=== PATIENT | female | born 1985 | race Caucasian/White ===

== ENCOUNTER 2016-10-26 14:42 | Emergency (ER) | payer OTHER ==
[2016-10-26 14:56] VITALS: BP 129/76; PULSE 73; RESP 18; TEMP 98.1
--- NOTE | 2016-10-26 15:40 | ED ---
Extremity Problem HPI - General Chief complaint: Extremity Problem,Nontraumatic Stated complaint: Poss blood clot Time Seen by Provider: 10/26/16 15:00 Source: patient Mode of arrival: ambulatory Limitations: no limitations - History of Present Illness Initial comments: This is a 31-year-old female who presents in [facility] for medics breast for right lower extremity swelling and bruising. She states that she noticed it yesterday around 6 PM. She states that she has a pain and tingling sensation to the right lower extremity below the calf. She denies any weakness in the extremity. No severe pain. There is just pain over the bruise on the medial aspect of the calf. She denies any shortness of breath or cough. No hemoptysis. She does take control and smokes however has not any recent travel or surgeries. No history DVT. She was sent here for evaluation for DVT. - Related Data Home Medications Medication Instructions Recorded Confirmed Levothyroxine Sodium [Synthroid] 25 mcg PO DAILY 01/23/14 01/23/14 Lurasidone [Latuda] 20 mg PO DAILY 01/23/14 01/23/14 clonazePAM [KlonoPIN] 2 mg PO BID 01/23/14 01/23/14 lamoTRIgine [LaMICtal] 150 mg PO BID 01/23/14 01/23/14 Previous Rx's Medication Instructions Recorded Loratadine [Claritin] 10 mg PO DAILY #30 tab 01/23/14 Allergies Allergy/AdvReac Type Severity Reaction Status Date / Time aspirin Allergy Unknown Verified 10/26/16 14:56 codeine Allergy Unknown Verified 10/26/16 14:56 lactase [From Dairy Aid] Allergy Unknown Verified 10/26/16 14:56 wheat Allergy Unknown Verified 10/26/16 14:56 Review of Systems ROS Statement: Those systems with pertinent positive or pertinent negative responses have been documented in the HPI. ROS Other: All systems not noted in ROS Statement are negative. Past Medical History Past Medical History: Thyroid Disorder Additional Past Medical History / Comment(s): personality disorder, ptsd History of Any Multi-Drug Resistant Organisms: None Reported Past Surgical History: Ear Surgery Additional Past Surgical History / Comment(s): left ear drum, bunionectomy bilateral feet Past Psychological History: Anxiety, Bipolar, Depression Smoking Status: Current every day smoker Past Alcohol Use History: None Reported Past Drug Use History: None Reported General Exam - General Exam Comments Initial Comments: Constitutional: Awake alert Appears comfortable Head: Normocephalic atraumatic Eyes: no conjunctival injection No scleral icterus EOMI Neck: No JVD Supple Heart: Regular rate rhythm normal S1-S2 no murmurs Lungs: Clear to auscultation bilaterally No wheezing No rales Abdomen: Soft nondistended nontender Extremities: Mild bruising and swelling to the medial aspect of the right calf DP pulses intact Radial pulses intact, neurovascularly intact distal. Neuro: A&Ox3 No focal neurologic deficits Psych: Appropriate mood and affect Limitations: no limitations Course Vital Signs 10/26/16 14:54 Temperature 98.1 F Pulse Rate 73 Respiratory 18 Rate Blood Pressure 129/76 O2 Sat by Pulse 98 Oximetry Medical Decision Making - Medical Decision Making This is a 31-year-old female presents emergency department for right lower ch migdalia bruising and swelling. Doppler did not reveal any evidence for DVT. At this time I feel the patient may have sustained some type of local trauma to the area that she was unaware of. She is keep an eye on this area. She has worsening or changing symptoms she can return emergency Department. Otherwise she needs to follow-up with primary doctor. All questions were answered. Disposition Clinical Impression: Contusion of leg Disposition: HOME SELF-CARE Condition: Stable Instructions: Contusion in Adults (ED) Referrals: Jeremias Doan DO [Primary Care Provider] - 1-2 days
--- NOTE | 2016-10-26 16:01 | US ---
EXAMINATION TYPE: US venous doppler duplex LE RT DATE OF EXAM: 10/26/2016 3:46 PM COMPARISON: NONE CLINICAL HISTORY: 31-year-old female Swelling. Right leg pain. No history of DVT and not on blood th inners. SIDE PERFORMED: Right TECHNIQUE: The lower extremity deep venous system is examined utilizing real time linear array sonog joel with graded compression, doppler sonography and color-flow sonography. FINDINGS: VESSELS IMAGED: External Iliac Vein (EIV) Common Femoral Vein Deep Femoral Vein Greater Saphenous Vein * Femoral Vein Popliteal Vein Small Saphenous Vein * Proximal Calf Veins (* superficial vessels) Right Leg: Appears negative for DVT IMPRESSION: No evidence for DVT within the right lower extremity imaged from the groin to the upper calf.
== END 2016-10-26 16:22 | disposition home or self-care (01) ==
LOC: EC 14:42
DX: M79.81 Nontraumatic hematoma of soft tissue (principal); E07.9 Disorder of thyroid, unspecified; F31.9 Bipolar disorder, unspecified; F41.9 Anxiety disorder, unspecified; F17.200 Nicotine dependence, unspecified, uncomplicated; Z79.899 Other long term (current) drug therapy; Z88.5 Allergy status to narcotic agent; Z88.6 Allergy status to analgesic agent; Z91.011 Allergy to milk products; Z91.018 Allergy to other foods
CPT/HCPCS: 99283

== ENCOUNTER 2017-10-11 23:29 | Emergency (ER) | payer OTHER ==
[2017-10-12 06:56] LABS: ALT 33 U/L (9-52); AST 26 U/L (14-36); Albumin 4.4 g/dL (3.5-5.0); Alkaline Phosphatase 69 U/L (38-126); Anion Gap 10 mmol/L; Blood Urea Nitrogen 17 mg/dL (7-17); Calcium 9.6 mg/dL (8.4-10.2); Carbon Dioxide 25 mmol/L (22-30); Chloride 103 mmol/L (98-107); Glucose 104 mg/dL (74-99); Potassium 4.2 mmol/L (3.5-5.1); Sodium 138 mmol/L (137-145); Total Bilirubin 0.2 mg/dL (0.2-1.3); Total Protein 7.2 g/dL (6.3-8.2)
== END 2017-10-12 03:09 | disposition home or self-care (01) ==
LOC: EC 23:29
DX: I10 Essential (primary) hypertension (principal); E03.9 Hypothyroidism, unspecified; F41.9 Anxiety disorder, unspecified; F60.3 Borderline personality disorder; F17.200 Nicotine dependence, unspecified, uncomplicated; Z79.899 Other long term (current) drug therapy; Z88.5 Allergy status to narcotic agent; Z88.6 Allergy status to analgesic agent; Z91.011 Allergy to milk products; Z91.018 Allergy to other foods
CPT/HCPCS: 36415; 80053; 81025; 99283

== ENCOUNTER → 2018-01-24 | Outpatient (CLI) | payer OTHER ==
--- NOTE | 2018-01-24 07:30 | US ---
EXAMINATION TYPE: US gallbladder DATE OF EXAM: 01/24/2018 COMPARISON: NONE CLINICAL HISTORY: R10.13 Epigastric pain. Nausea EXAM MEASUREMENTS: Liver Length: 18.6 cm Gallbladder Wall: 0.2 cm CBD: 0.2 cm Right Kidney: 12.1 x 5.4 x 4.2 cm Pancreas: wnl Liver: Increased attenuation Gallbladder: with multiple mobile, shadowing echogenic foci. Evidence for sonographic German's sign: Yes CBD: wnl Right Kidney: wnl IMPRESSION: 1. Uncomplicated cholelithiasis. 2. Hepatic steatosis.
== END | disposition home or self-care (01) ==
LOC: RADUSWWP 06:47
PROVIDERS: ATTEND Family Medicine
DX: K76.0 Fatty (change of) liver, not elsewhere classified (principal); K80.20 Calculus of gallbladder without cholecystitis without obstruction; R10.13 Epigastric pain
CPT/HCPCS: 76705

== ENCOUNTER 2018-01-27 03:20 | Observation (INO) | payer OTHER ==
[2018-01-27] MEDS ORDERED: ONDANSETRON 4 MG/2 ML VIAL IVP STA (03:34)
[2018-01-27] MEDS ORDERED: KETOROLAC 30 MG/ML 1 ML VIAL IVP STA (03:34)
--- NOTE | 2018-01-27 03:38 | ED ---
Abdominal Pain HPI - General Chief Complaint: Abdominal Pain Stated Complaint: upper abd pain Time Seen by Provider: 01/27/18 03:29 Source: patient Mode of arrival: ambulatory Limitations: no limitations - History of Present Illness Initial Comments: This patient is a 32-year-old woman who presents to be evaluated for right upper quadrant pain. The patient states that the pains began about 20 minutes before she arrived here tonight. She states that she had been at work. The patient has also had previous episodes of this. She states that she was told that she has gallstones and it may be the cause of this. The patient states the pain is sharp and aching. It has been constant though it does get better and worse. She states the pain gets worse if she presses on the area. It is little better if she curls over. He is been some associated nausea. MD Complaint: abdominal pain Onset/Timin -: minutes(s) Location: RUQ Radiation: R flank Severity: severe Quality: aching Consistency: colicky Improves With: nothing Worsens With: nothing Associated Symptoms: nausea - Related Data Home Medications Medication Instructions Recorded Confirmed Levothyroxine Sodium [Synthroid] 25 mcg PO DAILY 01/23/14 01/23/14 Lurasidone [Latuda] 20 mg PO DAILY 01/23/14 01/23/14 clonazePAM [KlonoPIN] 2 mg PO BID 01/23/14 01/23/14 lamoTRIgine [LaMICtal] 150 mg PO BID 01/23/14 01/23/14 Previous Rx's Medication Instructions Recorded Loratadine [Claritin] 10 mg PO DAILY #30 tab 01/23/14 Allergies Allergy/AdvReac Type Severity Reaction Status Date / Time aspirin Allergy Unknown Verified 01/27/18 03:27 codeine Allergy Unknown Verified 01/27/18 03:27 lactase [From Dairy Aid] Allergy Unknown Verified 01/27/18 03:27 wheat Allergy Unknown Verified 01/27/18 03:27 Review of Systems ROS Statement: Those systems with pertinent positive or pertinent negative responses have been documented in the HPI. ROS Other: All systems not noted in ROS Statement are negative. Constitutional: Denies: fever, chills Respiratory: Denies: cough, dyspnea Cardiovascular: Denies: chest pain, palpitations, edema Gastrointestinal: Reports: abdominal pain, nausea. Denies: vomiting, diarrhea, constipation, melena, hematochezia Genitourinary: Denies: dysuria, frequency, hematuria Musculoskeletal: Denies: back pain Skin: Denies: rash Neurological: Denies: headache, weakness, numbness Past Medical History Past Medical History: Hypertension, Thyroid Disorder Additional Past Medical History / Comment(s): personality disorder, ptsd, gallstones. History of Any Multi-Drug Resistant Organisms: None Reported Past Surgical History: Ear Surgery Additional Past Surgical History / Comment(s): left ear drum, bunionectomy bilateral feet Past Psychological History: Anxiety, Bipolar, Depression Smoking Status: Current every day smoker Past Alcohol Use History: None Reported Past Drug Use History: None Reported General Exam Limitations: no limitations General appearance: alert, in no apparent distress, obese Head exam: Present: atraumatic, normocephalic Eye exam: Present: normal appearance. Absent: scleral icterus, conjunctival injection ENT exam: Present: normal oropharynx Respiratory exam: Present: normal lung sounds bilaterally. Absent: respiratory distress, wheezes, rales, rhonchi, stridor Cardiovascular Exam: Present: regular rate, normal rhythm, normal heart sounds. Absent: systolic murmur, diastolic murmur, rubs, gallop GI/Abdominal exam: Present: soft, tenderness (There is moderate right upper quadrant tenderness.), normal bowel sounds. Absent: distended, guarding, rebound, rigid, mass Extremities exam: Present: normal inspection, normal capillary refill. Absent: pedal edema, calf tenderness Back exam: Present: normal inspection. Absent: CVA tenderness (R), CVA tenderness (L) Neurological exam: Present: alert Skin exam: Present: warm, dry, intact, normal color. Absent: rash Course Vital Signs 01/27/18 01/27/18 01/27/18 03:23 04:16 05:00 Temperature 98.2 F Pulse Rate 108 H Respiratory 20 18 19 Rate Blood Pressure 186/99 O2 Sat by Pulse 98 Oximetry 01/27/18 01/27/18 06:00 06:56 Temperature Pulse Rate 75 Respiratory 19 17 Rate Blood Pressure 132/66 O2 Sat by Pulse 100 Oximetry Medical Decision Making - Medical Decision Making Patient's 32-year-old woman with worsening episodes of biliary colic. She is tender on the exam today. The ultrasound as showing wall thickening suggestive of acute cholecystitis and the case discussed with Dr. marquez will admit the patient for possible surgery tomorrow. - Lab Data Result diagrams: 01/27/18 03:38 01/27/18 03:38 Lab Results 01/27/18 01/27/18 01/27/18 Range/Units 03:38 03:38 03:38 WBC 11.5 H (3.8-10.6) k/uL RBC 4.73 (3.80-5.40) m/uL Hgb 13.0 (11.4-16.0) gm/dL Hct 39.8 (34.0-46.0) % MCV 84.2 (80.0-100.0) fL MCH 27.6 (25.0-35.0) pg MCHC 32.7 (31.0-37.0) g/dL RDW 14.5 (11.5-15.5) % Plt Count 301 (150-450) k/uL Neutrophils % 57 % Lymphocytes % 33 % Monocytes % 3 % Eosinophils % 5 % Basophils % 0 % Neutrophils # 6.5 (1.3-7.7) k/uL Lymphocytes # 3.8 (1.0-4.8) k/uL Monocytes # 0.4 (0-1.0) k/uL Eosinophils # 0.5 (0-0.7) k/uL Basophils # 0.0 (0-0.2) k/uL Sodium 140 (137-145) mmol/L Potassium 4.1 (3.5-5.1) mmol/L Chloride 107 (98-107) mmol/L Carbon Dioxide 21 L (22-30) mmol/L Anion Gap 12 mmol/L BUN 21 H (7-17) mg/dL Creatinine 1.08 H (0.52-1.04) mg/dL Est GFR (CKD-EPI)AfAm 78 (>60 ml/min/1.73 sqM) Est GFR (CKD-EPI)NonAf 68 (>60 ml/min/1.73 sqM) Glucose 121 H (74-99) mg/dL Calcium 9.7 (8.4-10.2) mg/dL Total Bilirubin 0.4 (0.2-1.3) mg/dL AST 15 (14-36) U/L ALT 20 (9-52) U/L Alkaline Phosphatase 70 (38-126) U/L Total Protein 7.5 (6.3-8.2) g/dL Albumin 4.3 (3.5-5.0) g/dL Amylase 52 (30-110) U/L Lipase 83 (23-300) U/L Urine Color Urine Appearance (Clear) Urine pH (5.0-8.0) Ur Specific [place] (1.001-1.035) Urine Protein (Negative) Urine Glucose (UA) (Negative) Urine Ketones (Negative) Urine Blood (Negative) Urine Nitrite (Negative) Urine Bilirubin (Negative) Urine Urobilinogen (<2.0) mg/dL Ur Leukocyte Esterase (Negative) Urine RBC (0-5) /hpf Urine WBC (0-5) /hpf Ur Squamous Epith Cells (0-4) /hpf Urine Mucus (None) /hpf Urine HCG, Qual Not Detected (Not Detectd) 01/27/18 Range/Units 03:38 WBC (3.8-10.6) k/uL RBC (3.80-5.40) m/uL Hgb (11.4-16.0) gm/dL Hct (34.0-46.0) % MCV (80.0-100.0) fL MCH (25.0-35.0) pg MCHC (31.0-37.0) g/dL RDW (11.5-15.5) % Plt Count (150-450) k/uL Neutrophils % % Lymphocytes % % Monocytes % % Eosinophils % % Basophils % % Neutrophils # (1.3-7.7) k/uL Lymphocytes # (1.0-4.8) k/uL Monocytes # (0-1.0) k/uL Eosinophils # (0-0.7) k/uL Basophils # (0-0.2) k/uL Sodium (137-145) mmol/L Potassium (3.5-5.1) mmol/L Chloride (98-107) mmol/L Carbon Dioxide (22-30) mmol/L Anion Gap mmol/L BUN (7-17) mg/dL Creatinine (0.52-1.04) mg/dL Est GFR (CKD-EPI)AfAm (>60 ml/min/1.73 sqM) Est GFR (CKD-EPI)NonAf (>60 ml/min/1.73 sqM) Glucose (74-99) mg/dL Calcium (8.4-10.2) mg/dL Total Bilirubin (0.2-1.3) mg/dL AST (14-36) U/L ALT (9-52) U/L Alkaline Phosphatase (38-126) U/L Total Protein (6.3-8.2) g/dL Albumin (3.5-5.0) g/dL Amylase (30-110) U/L Lipase (23-300) U/L Urine Color Yellow Urine Appearance Cloudy H (Clear) Urine pH 5.5 (5.0-8.0) Ur Specific [place] 1.024 (1.001-1.035) Urine Protein Trace H (Negative) Urine Glucose (UA) Negative (Negative) Urine Ketones Negative (Negative) Urine Blood Trace H (Negative) Urine Nitrite Negative (Negative) Urine Bilirubin Negative (Negative) Urine Urobilinogen <2.0 (<2.0) mg/dL Ur Leukocyte Esterase Negative (Negative) Urine RBC 1 (0-5) /hpf Urine WBC 2 (0-5) /hpf Ur Squamous Epith Cells 2 (0-4) /hpf Urine Mucus Many H (None) /hpf Urine HCG, Qual (Not Detectd) Disposition Clinical Impression: Abdominal pain Disposition: ADMITTED IP TO THIS HOSP Condition: Fair Instructions: Abdominal Pain (ED) Is patient prescribed a controlled substance at d/c from ED?: No Referrals: Tim Katz Jr, [Primary Care Provider] - 1-2 days
[2018-01-27 04:00] LABS: Basophils % (A) 0 %; Eosinophils # (A) 0.5 k/uL (0-0.7); Eosinophils % (A) 5 %; HCT 39.8 % (34.0-46.0); Lymphocytes # (A) 3.8 k/uL (1.0-4.8); Lymphocytes % (A) 33 %; MCH 27.6 pg (25.0-35.0); MCHC 32.7 g/dL (31.0-37.0); MCV 84.2 fL (80.0-100.0); Mean Platelet Volume 6.8; Monocytes # (A) 0.4 k/uL (0-1.0); Monocytes % (A) 3 %; Neutrophils # (A) 6.5 k/uL (1.3-7.7); Neutrophils % (A) 57 %; Platelet Count 301 k/uL (150-450); RBC 4.73 m/uL (3.80-5.40); RDW 14.5 % (11.5-15.5); WBC 11.5 k/uL (3.8-10.6)
[2018-01-27 04:06] LABS: Appearance,Urine Cloudy (Clear); Bilirubin,Urine Negative (Negative); Blood,Urine Trace (Negative); Color,Urine Yellow; Glucose,Urine (UA) Negative (Negative); Ketones,Urine Negative (Negative); Leukocyte Esterase,Urine Negative (Negative); Mucus,Urine Many /hpf; Nitrite,Urine Negative (Negative); PH, Urine 5.5 (5.0-8.0); Protein,Urine Trace (Negative); RBC,Urine 1 /hpf (0-5); Specific Gravity,Urine 1.024 (1.001-1.035); Squamous Epithelial Cell,Urine 2 /hpf (0-4); Urobilinogen,Urine <2.0 mg/dL (<2.0); WBC,Urine 2 /hpf (0-5)
[2018-01-27 04:11] LABS: Albumin 4.3 g/dL (3.5-5.0); Calcium 9.7 mg/dL (8.4-10.2); Potassium 4.1 mmol/L (3.5-5.1); Total Bilirubin 0.4 mg/dL (0.2-1.3); Total Protein 7.5 g/dL (6.3-8.2)
[2018-01-27] MEDS ORDERED: MORPHINE SULFATE 2 MG/ML SYRINGE IVP STA (04:44)
[2018-01-27] MEDS ORDERED: HYDROmorphone 1 MG/ML 1 ML SYRINGE IVP STA (05:12)
--- NOTE | 2018-01-27 08:08 | US ---
EXAMINATION TYPE: US abdomen limited DATE OF EXAM: 01/27/2018 COMPARISON: Previous study dated 01/24/2018. CLINICAL HISTORY: Pain, attention RUQ. EXAM MEASUREMENTS: Liver Length: cm Gallbladder Wall: cm CBD: cm Right Kidney: cm Patient of large body habitus. Pancreas: wnl Liver: Increased attenuation, decreased visualization of vessels suggestive of fatty infiltrate, hep atomegaly Gallbladder: multiple mobile, shadowing echogenic foci Evidence for sonographic German's sign: yes CBD: wnl Right Kidney: wnl Limited views of the pancreas are unremarkable. The liver is prominent measuring 21 cm. It is echogenic and may be fatty infiltrated. There are multiple gallstones within the gallbladder. Gallbladder wall is mildly thickened measuring 3 mm. The distal common hepatic duct measures 4.3 mm. There is a sonographic German's sign. The right kidney is unremarkable. IMPRESSION: 1. HEPATOMEGALY. 2. CHOLELITHIASIS AND POSSIBLE ACUTE CHOLECYSTITIS.
[2018-01-27] MEDS ORDERED: NALOXONE 0.4 MG/ML 1 ML VIAL IV PRN (08:46)
[2018-01-27] MEDS ORDERED: PIPERACILLIN-TAZOBACTAM 3.375 GM in SODIUM CHLORIDE 0.9% 100 ML IVPB STA (08:50)
[2018-01-27] MEDS ORDERED: LURASIDONE 20 MG TAB PO SCH (09:00)
[2018-01-27] MEDS ORDERED: LEVOTHYROXINE 25 MCG TAB PO SCH (09:00)
[2018-01-27] MEDS: SODIUM CHLORIDE 0.9% 1,000 ML IV SCH ×3 (09:36→21:16)
[2018-01-27] MEDS: clonazePAM 1 MG TAB PO SCH ×2 (10:32→10:43)
[2018-01-27] MEDS: lamoTRIgine 100 MG TAB PO SCH ×2 (10:32→20:30)
[2018-01-27] MEDS: ONDANSETRON 4 MG/2 ML VIAL IVP PRN (10:33)
[2018-01-27] MEDS ORDERED: HYDROCHLOROTHIAZIDE 12.5 MG CAP PO SCH (10:45)
[2018-01-27] MEDS ORDERED: LISINOPRIL 5 MG TAB PO SCH (10:45)
[2018-01-27] MEDS ORDERED: LURASIDONE 20 MG TAB PO ONE (10:49)
[2018-01-27] MEDS: LEVOTHYROXINE 50 MCG TAB PO SCH (11:06)
[2018-01-27] MEDS: HYDROmorphone 1 MG/ML 1 ML SYRINGE IVP PRN ×2 (11:51→21:16)
--- NOTE | 2018-01-27 12:52 | P.GSHP ---
History of Present Illness H&P Date: 01/27/18 This is a 32-year-old female presented with acute onset of right upper quadrant pain. She was found to have gallbladder wall thickening and ultrasound findings consistent with acute cholecystitis. She states that she's been having these attacks on and off for the past month and several months. She was being worked up as an outpatient when she began having ongoing attacks or lasting greater than 8 hours 2 days ago. This is what brought her into the hospital. She states that currently she is feeling a little bit better however she does still have pain in her right upper quadrant. She denies any nausea vomiting she's passing normal bowel movements. She's never had abdominal surgery before in the past. Past Medical History Past Medical History: Hypertension, Thyroid Disorder Additional Past Medical History / Comment(s): personality disorder, ptsd, gallstones. History of Any Multi-Drug Resistant Organisms: None Reported Past Surgical History: Ear Surgery Additional Past Surgical History / Comment(s): left ear drum, bunionectomy bilateral feet Past Psychological History: Anxiety, Bipolar, Depression Smoking Status: Current every day smoker Past Alcohol Use History: None Reported Past Drug Use History: None Reported Medications and Allergies Home Medications Medication Instructions Recorded Confirmed Type Lurasidone [Latuda] 40 mg PO DAILY 01/23/14 01/27/18 History lamoTRIgine [LaMICtal] 150 mg PO BID 01/23/14 01/27/18 History Hydrochlorothiazide [Hydrodiuril] 12.5 mg PO DAILY 01/27/18 01/27/18 History Levothyroxine Sodium [Synthroid] 50 mcg PO DAILY 01/27/18 01/27/18 History Lisinopril [Zestril] 5 mg PO DAILY 01/27/18 01/27/18 History Topiramate [Topamax] 50 mg PO DAILY 01/27/18 01/27/18 History Allergies Allergy/AdvReac Type Severity Reaction Status Date / Time aspirin Allergy Unknown Verified 01/27/18 10: codeine Allergy Unknown Verified 01/27/18 10: lactase [From Dairy Aid] Allergy Unknown Verified 01/27/18 10: wheat Allergy Unknown Verified 01/27/18 10:18 Surgical - Exam Osteopathic Statement: *. No significant issues noted on an osteopathic structural exam other than those noted in the History and Physical/Consult. Vital Signs Temp Pulse Resp BP Pulse Ox 98.2 F 108 H 20 186/99 98 01/27/18 03:23 01/27/18 03:23 01/27/18 03:23 01/27/18 03:23 01/27/18 03:23 - General well developed, well nourished, no distress - Eyes PERRL - Neck trachea midline - Respiratory normal expansion, normal respiratory effort - Cardiovascular Rhythm: regular - Abdomen mild TTP RUQ Abdomen: soft - Neurologic normal coordination, normal sensation - Psychiatric oriented to time, oriented to person, oriented to place Results - Labs 01/27/18 03:38 01/27/18 03:38 Abnormal Lab Results - Last 24 Hours (Table) 01/27/18 01/27/18 01/27/18 Range/Units 03:38 03:38 03:38 WBC 11.5 H (3.8-10.6) k/uL Carbon Dioxide 21 L (22-30) mmol/L BUN 21 H (7-17) mg/dL Creatinine 1.08 H (0.52-1.04) mg/dL Glucose 121 H (74-99) mg/dL Urine Appearance Cloudy H (Clear) Urine Protein Trace H (Negative) Urine Blood Trace H (Negative) Urine Mucus Many H (None) /hpf Diabetes panel 01/27/18 Range/Units 03:38 Sodium 140 (137-145) mmol/L Potassium 4.1 (3.5-5.1) mmol/L Chloride 107 (98-107) mmol/L Carbon Dioxide 21 L (22-30) mmol/L BUN 21 H (7-17) mg/dL Creatinine 1.08 H (0.52-1.04) mg/dL Glucose 121 H (74-99) mg/dL Calcium 9.7 (8.4-10.2) mg/dL AST 15 (14-36) U/L ALT 20 (9-52) U/L Alkaline Phosphatase 70 (38-126) U/L Total Protein 7.5 (6.3-8.2) g/dL Albumin 4.3 (3.5-5.0) g/dL Calcium panel 01/27/18 Range/Units 03:38 Calcium 9.7 (8.4-10.2) mg/dL Albumin 4.3 (3.5-5.0) g/dL Pituitary panel 01/27/18 Range/Units 03:38 Sodium 140 (137-145) mmol/L Potassium 4.1 (3.5-5.1) mmol/L Chloride 107 (98-107) mmol/L Carbon Dioxide 21 L (22-30) mmol/L BUN 21 H (7-17) mg/dL Creatinine 1.08 H (0.52-1.04) mg/dL Glucose 121 H (74-99) mg/dL Calcium 9.7 (8.4-10.2) mg/dL Adrenal panel 01/27/18 Range/Units 03:38 Sodium 140 (137-145) mmol/L Potassium 4.1 (3.5-5.1) mmol/L Chloride 107 (98-107) mmol/L Carbon Dioxide 21 L (22-30) mmol/L BUN 21 H (7-17) mg/dL Creatinine 1.08 H (0.52-1.04) mg/dL Glucose 121 H (74-99) mg/dL Calcium 9.7 (8.4-10.2) mg/dL Total Bilirubin 0.4 (0.2-1.3) mg/dL AST 15 (14-36) U/L ALT 20 (9-52) U/L Alkaline Phosphatase 70 (38-126) U/L Total Protein 7.5 (6.3-8.2) g/dL Albumin 4.3 (3.5-5.0) g/dL Assessment and Plan Assessment: Acute cholecystitis Plan: Plan is for laparoscopic cholecystectomy tomorrow a.m. Patient will be made nothing by mouth after midnight. She had clear liquids until then. She'll be given IV antibiotics. This plan was discussed with the patient in detail risks benefits and alternatives to laparoscopic cholecystectomy were discussed risks including bleeding infection damage to surrounding tissue need for further operation damage to common bile duct and need for conversion to open were all discussed patient stated she understood agreed and consented
[2018-01-27] MEDS: TOPIRAMATE 25 MG TAB PO SCH (13:19)
[2018-01-27] MEDS: HEPARIN SODIUM,PORCINE 5,000 UNIT/ML 1 ML VIAL SQ SCH (16:54)
[2018-01-27] MEDS: PIPERACILLIN-TAZOBACTAM 3.375 GM in SODIUM CHLORIDE 0.9% 100 ML IVPB SCH (16:58)
[2018-01-27 18:26] VITALS: BMI 41.0
[2018-01-27] MEDS ORDERED: clonazePAM 1 MG TAB PO PRN (18:59)
[2018-01-28] MEDS: HEPARIN SODIUM,PORCINE 5,000 UNIT/ML 1 ML VIAL SQ SCH ×4 (01:03→20:16)
[2018-01-28] MEDS: PIPERACILLIN-TAZOBACTAM 3.375 GM in SODIUM CHLORIDE 0.9% 100 ML IVPB SCH ×4 (01:03→23:32)
[2018-01-28] MEDS: LEVOTHYROXINE 50 MCG TAB PO SCH (06:12)
[2018-01-28 07:17] LABS: Basophils % (A) 1 %; Eosinophils # (A) 0.4 k/uL (0-0.7); Eosinophils % (A) 5 %; HCT 35.5 % (34.0-46.0); HGB 11.2 gm/dL (11.4-16.0); Hypochromasia Slight; Lymphocytes # (A) 2.4 k/uL (1.0-4.8); Lymphocytes % (A) 35 %; MCH 26.8 pg (25.0-35.0); MCHC 31.4 g/dL (31.0-37.0); MCV 85.2 fL (80.0-100.0); Mean Platelet Volume 6.7; Monocytes # (A) 0.3 k/uL (0-1.0); Monocytes % (A) 5 %; Neutrophils # (A) 3.7 k/uL (1.3-7.7); Neutrophils % (A) 53 %; Platelet Count 254 k/uL (150-450); RBC 4.16 m/uL (3.80-5.40); RDW 14.3 % (11.5-15.5); WBC 6.9 k/uL (3.8-10.6)
[2018-01-28 07:25] LABS: Albumin 3.5 g/dL (3.5-5.0); Calcium 8.9 mg/dL (8.4-10.2); Potassium 4.3 mmol/L (3.5-5.1); Total Bilirubin 0.5 mg/dL (0.2-1.3); Total Protein 6.3 g/dL (6.3-8.2)
[2018-01-28] MEDS ORDERED: ONDANSETRON 4 MG/2 ML VIAL ONE (08:16)
[2018-01-28] MEDS ORDERED: SODIUM CHLORIDE 0.9% 1,000 ML IV ONE ×2 (08:16→10:10)
[2018-01-28] MEDS ORDERED: GLYCOPYRROLATE 0.2 MG/ML 2 ML VIAL ONE (08:16)
[2018-01-28] MEDS ORDERED: SUCCINYLCHOLINE CHLORIDE 100 MG/5 ML SYR IV ONE (08:16)
[2018-01-28] MEDS ORDERED: BUPIVACAIN-EPI 0.25%-1:200,000 30 ML VIAL SQ ONE (08:16)
[2018-01-28] MEDS ORDERED: NEOSTIGMINE 1 MG/ML 10 ML VIAL ONE (08:16)
[2018-01-28] MEDS ORDERED: PROPOFOL 10 MG/ML 20 ML VIAL IV ONE (08:16)
[2018-01-28] MEDS ORDERED: KETOROLAC 30 MG/ML 1 ML VIAL ONE (08:16)
[2018-01-28] MEDS ORDERED: fentaNYL (PF) 50 MCG/ML 2 ML AMP ONE (08:16)
[2018-01-28] MEDS ORDERED: HYDROmorphone (PF) 1 MG/ML ONE (08:16)
[2018-01-28] MEDS ORDERED: LIDOCAINE 1% INJ 10MG/ML (20 ML MDV) ONE (08:16)
[2018-01-28] MEDS ORDERED: MIDAZOLAM 2 MG/2 ML VIAL ONE (08:16)
[2018-01-28] MEDS ORDERED: ROCURONIUM BROMIDE 10 MG/ML 10 ML VIAL IV ONE (08:16)
[2018-01-28] MEDS ORDERED: DEXAMETHASONE SOD PHOS (MDV) 100 MG/10 ML VIAL ONE (08:16)
[2018-01-28] MEDS: MEPERIDINE 50 MG/ML SYRINGE IVP ONE ×2 (09:35→09:46)
--- NOTE | 2018-01-28 09:38 | P.OP ---
Date of Procedure: 01/28/18 Preoperative Diagnosis: Acute cholecystitis Postoperative Diagnosis: same Procedure(s) Performed: Laparoscopic cholecystectomy Anesthesia: JENAE Surgeon: Denzel Brock Estimated Blood Loss (ml): 5 Condition: stable Disposition: floor Description of Procedure: Patient is brought operative suite remained in the supine position underwent general endotracheal anesthesia per Department of anesthesia she was prepped and draped in usual sterile fashion timeout performed correct patient correct procedure correct site was verified. A 12 mm incision was made just to the right of the umbilicus and using a 12 mm Visiport the abdomen was entered under direct visualization and insufflated. 3 5 mm ports are placed in the right upper quadrant and the patient was placed head up rotated right. The gallbladder was identified the fundus was retracted cephalad adhesions were taken down bluntly the Allen's pouch was identified and retracted the cystic duct and cystic artery were skeletonized critical view was obtained they were then doubly clipped and ligated the gallbladder was removed from the liver bed using Bovie cautery. The gallbladder was placed in Endo Catch bag and removed through the periumbilical port site. The abdomen was irrigated copiously until clear and suctioned. The umbilical incision was closed with an 0 Vicryl with 8 of a Edson-Antonette suture passer. The abdomen was desufflated all ports removed under direct visualization hemostasis was noted. Skin was closed with 4 -0 Vicryl subcuticular sutures sterile dressing was applied patient tolerated procedure well no apparent complications
[2018-01-28] MEDS: HYDROmorphone 1 MG/ML 1 ML SYRINGE IVP PRN ×4 (11:24→23:31)
[2018-01-28] MEDS: ONDANSETRON 4 MG/2 ML VIAL IVP PRN (11:24)
[2018-01-28] MEDS: TOPIRAMATE 25 MG TAB PO SCH (11:26)
[2018-01-28] MEDS: lamoTRIgine 100 MG TAB PO SCH ×2 (11:26→20:17)
[2018-01-28] MEDS: SODIUM CHLORIDE 0.9% 1,000 ML IV SCH (11:27)
--- NOTE | 2018-01-28 12:24 | P.HPIM ---
History of Present Illness H&P Date: 01/28/18 Chief Complaint: Abdominal pain and cholecystitis This 32-year-old woman well-known to my practice who presented to the emergency room for evaluation for right upper quadrant pain with nausea and vomiting. Patient states pain became approximately 20 minutes before she arrived. However she had been having pain off and on for several weeks and we have been working up for gallbladder disease she had a positive ultrasound with gallstones she had appointment scheduled with Dr. marquez for An office consultation so that she could undergo and a elective cholecystectomy. Patient developed sharp achy abdominal pain, that had become progressively worse while at work. She presented to the hospital Review of Systems Constitutional: Reports malaise, Reports poor appetite Ears, nose, mouth and throat: Reports as per HPI Cardiovascular: Reports as per HPI Respiratory: Reports as per HPI Gastrointestinal: Reports abdominal pain, Reports belching, Reports bloating, Reports excessive gas, Reports heartburn, Reports nausea (Right upper quadrant tenderness that radiates to back especially during and after meals) Genitourinary: Reports as per HPI Past Medical History Past Medical History: Hypertension, Thyroid Disorder Additional Past Medical History / Comment(s): personality disorder, ptsd, gallstones. History of Any Multi-Drug Resistant Organisms: None Reported Past Surgical History: Ear Surgery Additional Past Surgical History / Comment(s): left ear drum, bunionectomy bilateral feet Past Psychological History: Anxiety, Bipolar, Depression Smoking Status: Current every day smoker Past Alcohol Use History: None Reported Past Drug Use History: None Reported Medications and Allergies Home Medications Medication Instructions Recorded Confirmed Type Lurasidone [Latuda] 40 mg PO DAILY 01/23/14 01/27/18 History lamoTRIgine [LaMICtal] 150 mg PO BID 01/23/14 01/27/18 History Hydrochlorothiazide [Hydrodiuril] 12.5 mg PO DAILY 01/27/18 01/27/18 History Levothyroxine Sodium [Synthroid] 50 mcg PO DAILY 01/27/18 01/27/18 History Lisinopril [Zestril] 5 mg PO DAILY 01/27/18 01/27/18 History Topiramate [Topamax] 50 mg PO DAILY 01/27/18 01/27/18 History Allergies Allergy/AdvReac Type Severity Reaction Status Date / Time aspirin Allergy Unknown Verified 01/27/18 10:18 codeine Allergy Unknown Verified 01/27/18 10:18 lactase [From Dairy Aid] Allergy Unknown Verified 01/27/18 10:18 wheat Allergy Unknown Verified 01/27/18 10:18 Physical Exam Osteopathic Statement: *. No significant issues noted on an osteopathic structural exam other than those noted in the History and Physical/Consult. Vitals: Vital Signs Temp Pulse Pulse Resp BP Pulse Ox 01/28/18 10:11 84 18 132/58 97 01/28/18 10:00 71 16 134/55 95 01/28/18 09:45 68 16 137/65 99 01/28/18 09:28 97.4 F L 77 16 154/75 98 01/28/18 07:00 99.0 F 73 16 118/77 99 01/28/18 00:50 97.4 F L 71 14 95/57 98 01/27/18 19:10 97.4 F L 70 14 96/57 97 01/27/18 15:00 98.3 F 74 90/55 99 Intake and Output 01/27/18 01/28/18 01/28/18 22:59 06:59 14:59 Intake Total 375 975 500 Output Total 5 Balance 375 975 495 Intake: IV 500 Intake, IV Titration 375 975 Amount Piperacillin-Tazobactam 3 100 .375 gm In Sodium Chloride 0.9% 100 ml @ 25 mls/hr IVPB Q8HR [facility] Rx# :[id number] Sodium Chloride 0.9% 1, 375 875 000 ml @ 125 mls/hr IV . Q8H [facility] Rx#:[id number] Output: Estimated Blood Loss 5 Other: Voiding Method Toilet # Voids 1 1 General: [Patient awake, alert and oriented times 3. Patient in no acute distress.] HEENT: [PERRL. EOMI. No pharyngeal erythema or exudate.] Neck: [No adenopathy.] Cardiac: [Heart regular in rate and rhythm. No S3. No S4. No clicks, rubs. No murmur.] Lungs: [Clear to auscultation bilaterally.] Abdomen: Significant abdominal pain with intermittent nausea radiating to the right upper quadrant to the back, some rebound type tenderness when palpating the right upper quadrant Extremes: [No edema no cyanosis no claudication normal pulses] : [] Musculoskeletal: [No joint erythema, edema or tenderness.] Skin: [No rash.] Neurologic: [No lateralizing deficits. CN II - XII grossly intact.] Lymphatic: [No adenopathy.] Results CBC & Chem 7: 01/28/18 06:24 01/28/18 06:24 Labs: Abnormal Lab Results - Last 24 Hours (Table) 01/28/18 01/28/18 Range/Units 06:24 06:24 Hgb 11.2 L (11.4-16.0) gm/dL Chloride 108 H (98-107) mmol/L Creatinine 1.05 H (0.52-1.04) mg/dL Thrombosis Risk Factor Assmnt - Choose All That Apply Each Factor Represents 1 point: Minor surgery planned, Obesity (BMI >25) Other Risk Factors: Yes Other congenital or acquired thrombophilia - If yes, enter type in comment: No Thrombosis Risk Factor Assessment Total Risk Factor Score: 2 Thrombosis Risk Factor Assessment Level: Low Risk Assessment and Plan (1) Acute cholecystitis due to biliary calculus Narrative/Plan: Status post lap cholecystectomy per Dr. Denzel Shelley surgery Operative day today Current Visit: Yes Status: Acute Code(s): K80.00 - CALCULUS OF GALLBLADDER W ACUTE CHOLECYST W/O OBSTRUCTION SNOMED Code(s): 00873270045445 Plan: Discussed at length the postop pattern of recovery with patient she was made aware that this may get a little bit worse before it gets better but it should get better. She seems to be feeling much more comfortable than she had prior to the procedure Anticipate discharge home tomorrow Time with Patient: Greater than 30
[2018-01-28] MEDS: LACTATED RINGERS 1,000 ML IV SCH (12:47)
[2018-01-28] MEDS: LISINOPRIL 5 MG TAB PO SCH (15:03)
[2018-01-28] MEDS ORDERED: LURASIDONE 40 MG TAB PO SCH (21:00)
[2018-01-28] MEDS ORDERED: HYDROCHLOROTHIAZIDE 12.5 MG CAP PO SCH (21:00)
[2018-01-29] MEDS: HYDROmorphone 1 MG/ML 1 ML SYRINGE IVP PRN ×3 (02:46→09:18)
[2018-01-29] MEDS: LEVOTHYROXINE 50 MCG TAB PO SCH (06:09)
[2018-01-29 07:14] VITALS: RESP 16
[2018-01-29] MEDS: PIPERACILLIN-TAZOBACTAM 3.375 GM in SODIUM CHLORIDE 0.9% 100 ML IVPB SCH (07:31)
[2018-01-29] MEDS: HEPARIN SODIUM,PORCINE 5,000 UNIT/ML 1 ML VIAL SQ SCH (09:25)
[2018-01-29] MEDS: LACTATED RINGERS 1,000 ML IV SCH (09:25)
[2018-01-29] MEDS: lamoTRIgine 100 MG TAB PO SCH (09:26)
[2018-01-29] MEDS: TOPIRAMATE 25 MG TAB PO SCH (09:27)
[2018-01-29] MEDS ORDERED: POLYETHYLENE GLYCOL 3350 17 GM POWD.PACK PO SCH (11:45)
[2018-01-29] MEDS ORDERED: DOCUSATE 100 MG CAP PO SCH (11:45)
[2018-01-29] MEDS ORDERED: HYDROmorphone 1 MG/ML 1 ML SYRINGE IVP PRN (11:54)
--- NOTE | 2018-01-29 12:43 | P.PN ---
Subjective Progress Note Date: 01/29/18 Patient examined at the bedside. Patient reports she is having a lot of pain today. She is still requiring IV pain medications. She reports she is constipated and has not had a bowel movement since Monday. She denies passing flatus. She has good bowel sounds. She is tolerating PO intake. Denies nausea or vomiting. Denies chest pain. Denies shortness of breath. She has been ambulating to the bathroom and in the hallway. Objective - Vital Signs Vital signs: Vital Signs Temp 98.9 F 01/29/18 07:11 Pulse 71 01/29/18 07:11 Resp 16 01/29/18 07:11 BP 130/81 01/29/18 07:11 Pulse Ox 97 01/29/18 07:11 Intake & Output 01/28/18 01/29/18 01/29/18 18:59 06:59 18:59 Intake Total 800 750 Output Total 5 Balance 795 750 Intake: IV 500 Intake, IV Titration 300 500 Amount Lactated Ringers 1,000 ml 200 500 @ 50 mls/hr IV .Q20H [facility] Rx#:[id number] Piperacillin-Tazobactam 3 100 .375 gm In Sodium Chloride 0.9% 100 ml @ 25 mls/hr IVPB Q8HR [facility] Rx# :[id number] Oral 250 Output: Estimated Blood Loss 5 Other: Voiding Method Toilet Toilet Toilet # Voids 1 - Exam GENERAL: This is a 32-year-old female in no apparent distress at the time of examination. Pleasant and cooperative. HEENT: Head is atraumatic, normocephalic. Pupils are equal, round, and reactive to light. Sclerae anicteric. Conjunctivae are clear. Mucus membranes of the mouth are moist. Neck is supple. RESPIRATORY: Clear to auscultation. No wheezes, rales, or rhonchi. No use of accessory muscles. Patient maintaining oxygen saturation greater than 92%. No chest wall tenderness is noted on palpation or with deep breathing. CARDIOVASCULAR: Regular rate and rhythm. S1 and S2 noted. No systolic or diastolic murmur auscultated. No JVD noted. No S3 or S4 noted. GASTROINTESTINAL: Laparoscopic surgical sites without erythema or drainage. Bowel sounds x 4 quadrants. INTEGUMENTARY: No cyanosis. No jaundice. No rashes noted. No cellulitis noted. EXTREMITIES: 2+ peripheral pulses. No evidence of peripheral edema. No calf tenderness noted. NEUROLOGIC: Cranial nerves II-XII intact. PSYCHIATRIC: Awake, alert, and oriented X 3. Appropriate affect. Intact judgement and insight. - Labs CBC & Chem 7: 01/28/18 06:24 01/28/18 06:24 Assessment and Plan Plan: ASSESSMENT: Acute cholecystitis, status post laparoscopic cholecystectomy Hypertension Hypothyroidism History of anxiety, bipolar disorder, depression, and PTSD Morbid obesity: BMI 41.1 PLAN: Continue post operative surgical care per Dr. Brock Activity as tolerated. Increase ambulation Add Colace an Miralax due to constipation Incentive spirometer 10 times an hour while awake Add [place]. Use dilaudid for severe pain only Home meds as appropriate GI/DVT prophylaxis Monitor vital signs and address as appropriate Further recommendations pending patient's course Nurse practitioner note has been reviewed by physician. Signing provider agrees with the documented findings, assessment, and plan of care.
[2018-01-29] MEDS: HYDROcodone/APAP 5-325MG 1 EACH TAB PO PRN ×2 (13:23→13:30)
--- NOTE | 2018-01-29 15:02 | P.DS ---
Providers Date of admission: 01/27/18 08:47 Attending physician: Denzel Brock DO Consults: 01/27/18 12:00 Consult Physician Routine Consulting Provider: Tim Katz Jr Consult Reason/Comments: Patient with Cholecystitis, known to you Do you want consulting provider notified?: Yes Primary care physician: [facility] Course: Patient was admitted to the hospital on 01/27/2018 with acute cholecystitis. On 01/28/2018 she was taken the operating room for a left scalp cholecystectomy. Procedure was without complication. Patient began feeling better. She had no complaints. She's tolerating her diet on 01/29/2018 she's discharged home in stable condition. Instructions to follow-up with myself in one week and primary care within 2 weeks. She is instructed to return to the hospital if she has increasing pain fevers chills or nausea and vomiting. Patient Condition at Discharge: Stable Plan - Discharge Summary Discharge Rx Participant: No New Discharge Prescriptions: New Docusate [Colace] 100 mg PO DAILY #20 capsule traMADol-ACETAMINOP 37.5-325MG [Ultracet] 1 tab PO Q4HR PRN 3 Days #18 tab MDD MAX 8 TABS/DAY PRN Reason: Pain Continue lamoTRIgine [LaMICtal] 150 mg PO BID Lurasidone [Latuda] 40 mg PO DAILY Topiramate [Topamax] 50 mg PO DAILY Lisinopril [Zestril] 5 mg PO DAILY Hydrochlorothiazide [Hydrodiuril] 12.5 mg PO DAILY Levothyroxine Sodium [Synthroid] 50 mcg PO DAILY Discharge Medication List Lurasidone [Latuda] 40 mg PO DAILY 01/23/14 [History] lamoTRIgine [LaMICtal] 150 mg PO BID 01/23/14 [History] Hydrochlorothiazide [Hydrodiuril] 12.5 mg PO DAILY 01/27/18 [History] Levothyroxine Sodium [Synthroid] 50 mcg PO DAILY 01/27/18 [History] Lisinopril [Zestril] 5 mg PO DAILY 01/27/18 [History] Topiramate [Topamax] 50 mg PO DAILY 01/27/18 [History] Docusate [Colace] 100 mg PO DAILY #20 capsule 01/29/18 [Rx] traMADol-ACETAMINOP 37.5-325MG [Ultracet] 1 tab PO Q4HR PRN 3 Days #18 tab MDD MAX 8 TABS/DAY 01/29/18 [Rx] Follow up Appointment(s)/Referral(s): Tim Katz Jr, DO [Primary Care Provider] - 2 Weeks Denzel Brock DO [Doctor of Osteopathic Medicine] - 1 Week Patient Instructions/Handouts: Abdominal Pain (ED) Discharge Disposition: HOME SELF-CARE
[2018-01-29 16:08] VITALS: BP 126/81; PULSE 68; TEMP 98.6
[2018-01-29] MEDS: LISINOPRIL 5 MG TAB PO SCH (16:31)
== END 2018-01-29 17:14 | disposition home or self-care (01) ==
LOC: EC 03:20 → INTOOBSV 08:47 → 4SSUR 08:47 → UNDODISIN 01-29 17:14
PROVIDERS: ADMIT Student in an Organized Health Care Education/Training Program; ATTEND Student in an Organized Health Care Education/Training Program
PROC: 0FT44ZZ Resection of Gallbladder, Percutaneous Endoscopic Approach (ICD-10-PCS; principal; 2018-01-28 07:49)
DX: K80.12 Calculus of gallbladder with acute and chronic cholecystitis without obstruction (principal); Z68.41 Body mass index [BMI] 40.0-44.9, adult; E03.9 Hypothyroidism, unspecified; I10 Essential (primary) hypertension; K59.00 Constipation, unspecified; F60.9 Personality disorder, unspecified; F43.10 Post-traumatic stress disorder, unspecified; F31.9 Bipolar disorder, unspecified; E66.01 Morbid (severe) obesity due to excess calories; F17.200 Nicotine dependence, unspecified, uncomplicated; Z79.890 Hormone replacement therapy; Z79.899 Other long term (current) drug therapy; Z88.6 Allergy status to analgesic agent; Z91.011 Allergy to milk products; Z88.5 Allergy status to narcotic agent; Z91.018 Allergy to other foods; F41.9 Anxiety disorder, unspecified
CPT/HCPCS: 47562; 96365; 96375; 99285; 36415; 88304; 80053 ×2; 82150; 83690; 85025 ×2; 81001; 81025; 76705; G0378 ×3; J2543 ×3; J2250; J1644 ×3; J2710; J2175; J2405 ×2; J2001; J3010; J1885 ×2; J2270; J1170 ×3; J1100; J0330; J2704

== ENCOUNTER 2019-03-23 20:46 | Emergency (ER) | payer OTHER ==
[2019-03-23 21:00] VITALS: RESP 18
[2019-03-23] MEDS ORDERED: SODIUM CHLORIDE 0.9% 1,000 ML IV STA (21:25)
[2019-03-23] MEDS ORDERED: METOCLOPRAMIDE 5 MG/ML 2 ML VIAL IVP STA (21:25)
[2019-03-23] MEDS ORDERED: diphenhydrAMINE 50 MG/ML 1 ML VIAL IVP STA (21:25)
--- NOTE | 2019-03-23 21:49 | CT ---
EXAMINATION TYPE: CT brain wo con DATE OF EXAM: 03/23/2019 COMPARISON: 05/11/2011 HISTORY: headache and dizziness X [address] DLP: 1068.4 mGycm Automated exposure control for dose reduction was used. Ventricles have normal size. There is no mass effect nor midline shift. There is no sign of intracran ial hemorrhage. There is no evidence of cerebral edema. The calvarium is intact. There is hyperostosi s frontalis. IMPRESSION: Negative CT scan of the brain. No change.
[2019-03-23] MEDS ORDERED: KETOROLAC 30 MG/ML 1 ML VIAL IVP STA (21:51)
--- NOTE | 2019-03-23 22:54 | ED ---
General Adult HPI - General Chief complaint: Headache Stated complaint: Migraine Time Seen by Provider: 03/23/19 21:10 Source: patient, RN notes reviewed Mode of arrival: ambulatory Limitations: no limitations - History of Present Illness Initial comments: 34-year-old female with a past medical history of hypertension presents to the emergency department for a chief complaint of headache. Patient has a history of migraines. States she takes Topamax for this. States she always has a migraine that never completely goes away but sometimes it worsens. Patient states that yesterday she had gradual worsening of the pain on the left side of the head. States she has nausea vomiting associated with this. States it is consistent with previous migraines but is lasting longer than normal. Denies any neck pain or stiffness. Denies any fevers or chills.Patient has no other complaints at this time including shortness of breath, chest pain, abdominal pain, nausea or vomiting,, or visual changes. - Related Data Home Medications Medication Instructions Recorded Confirmed Lurasidone [Latuda] 40 mg PO DAILY 01/23/14 01/27/18 lamoTRIgine [LaMICtal] 150 mg PO BID 01/23/14 01/27/18 Hydrochlorothiazide [Hydrodiuril] 12.5 mg PO DAILY 01/27/18 01/27/18 Levothyroxine Sodium [Synthroid] 50 mcg PO DAILY 01/27/18 01/27/18 Lisinopril [Zestril] 5 mg PO DAILY 01/27/18 01/27/18 Topiramate [Topamax] 50 mg PO DAILY 01/27/18 01/27/18 Previous Rx's Medication Instructions Recorded Docusate [Colace] 100 mg PO DAILY #20 capsule 01/29/18 HYDROcodone/APAP 5-325MG [[place] 1 tab PO Q6HR PRN 3 Days #10 tab 01/29/18 5-325] Allergies Allergy/AdvReac Type Severity Reaction Status Date / Time aspirin Allergy Unknown Verified 03/23/19 21:00 codeine Allergy Unknown Verified 03/23/19 21:00 Review of Systems ROS Statement: Those systems with pertinent positive or pertinent negative responses have been documented in the HPI. ROS Other: All systems not noted in ROS Statement are negative. Past Medical History Past Medical History: Hypertension, Thyroid Disorder Additional Past Medical History / Comment(s): personality disorder, ptsd, gallstones. History of Any Multi-Drug Resistant Organisms: None Reported Past Surgical History: Cholecystectomy, Ear Surgery Additional Past Surgical History / Comment(s): left ear drum, bunionectomy bilateral feet Past Psychological History: Anxiety, Bipolar, Depression Smoking Status: Current every day smoker Past Alcohol Use History: Rare Past Drug Use History: None Reported - Past Family History Mother Family Medical History: Cancer Additional Family Medical History / Comment(s): leukemia General Exam Limitations: no limitations General appearance: alert, in no apparent distress Head exam: Present: atraumatic, normocephalic, normal inspection Eye exam: Present: normal appearance, PERRL, EOMI. Absent: scleral icterus, conjunctival injection, periorbital swelling ENT exam: Present: normal exam, mucous membranes moist Neck exam: Present: normal inspection. Absent: tenderness, meningismus, lymphadenopathy Respiratory exam: Present: normal lung sounds bilaterally. Absent: respiratory distress, wheezes, rales, rhonchi, stridor Cardiovascular Exam: Present: regular rate, normal rhythm, normal heart sounds. Absent: systolic murmur, diastolic murmur, rubs, gallop, clicks Neurological exam: Present: alert, oriented X3, CN II-XII intact, normal gait Course Vital Signs 03/23/19 03/23/19 20:57 23:02 Temperature 98.6 F 98 F Pulse Rate 85 87 Respiratory 18 18 Rate Blood Pressure 175/101 133/66 O2 Sat by Pulse 99 100 Oximetry Medical Decision Making - Medical Decision Making Well appearing Female presents for migraine headache consistent with previous migraines however lasting longer than normal. No focal neurologic deficits on exam. Patient did have a brain CT performed which showed a negative scan. She was given migraine cocktail and had significant improvement in pain. This is likely acute migraine. No maximal intensity at onset. She will follow up with primary care. She'll return here if she has any worsening symptoms. Disposition Clinical Impression: Migraine Disposition: HOME SELF-CARE Condition: Good Instructions (If sedation given, give patient instructions): Acute Headache (ED) Additional Instructions: Please take Motrin and Tylenol for pain. Please follow-up with your primary care doctor in one to 2 days. Return to the emergency department if you have any worsening symptoms. Is patient prescribed a controlled substance at d/c from ED?: No Referrals: Tim Katz Jr, DO [Primary Care Provider] - 1-2 days Time of Disposition: 22:53
[2019-03-23 23:02] VITALS: BP 133/66; PULSE 87; TEMP 98
== END 2019-03-23 23:02 | disposition home or self-care (01) ==
LOC: EC 20:46
DX: G43.909 Migraine, unspecified, not intractable, without status migrainosus (principal); E07.9 Disorder of thyroid, unspecified; I10 Essential (primary) hypertension; F31.9 Bipolar disorder, unspecified; F41.9 Anxiety disorder, unspecified; F17.200 Nicotine dependence, unspecified, uncomplicated; Z88.5 Allergy status to narcotic agent; Z88.6 Allergy status to analgesic agent
CPT/HCPCS: 70450; 99283; J1200; J2765; J1885

== ENCOUNTER 2019-12-29 19:38 | Emergency (ER) | payer OTHER ==
--- NOTE | 2019-12-29 19:56 | ED ---
General Adult HPI - General Chief complaint: Abdominal Pain Stated complaint: Abd/Lumbar Pain Time Seen by Provider: 12/29/19 19:46 Source: patient Mode of arrival: ambulatory Limitations: no limitations - History of Present Illness Initial comments: Patient presents the ED complaining of having diffuse lower abdominal pain and diffuse lumbar back pain for the past couple of weeks. Patient states that her pain has been getting worse. Patient states that she has felt nauseated as well, and she reports vomiting dark-colored emesis once today. Patient states that she is currently on her period, and she states that she has an IUD in place. Patient denies trauma or injury, fever or chills, headache, focal neuro deficit, chest pain, dyspnea, dizziness, upper abdominal pain, diarrhea or constipation, bloody or melanotic stool, dysuria/hematuria/urinary frequency/urinary symptoms, vaginal discharge or foul odors, leg pain/numbness/weakness, incontinence, urinary retention, or any other symptoms or complaints. Patient states that she get a ride to the emergency department this evening. - Related Data Home Medications Medication Instructions Recorded Confirmed Lurasidone [Latuda] 40 mg PO DAILY 01/23/14 01/27/18 lamoTRIgine [LaMICtal] 150 mg PO BID 01/23/14 01/27/18 Levothyroxine Sodium [Synthroid] 50 mcg PO DAILY 01/27/18 01/27/18 Topiramate [Topamax] 50 mg PO DAILY 01/27/18 01/27/18 hydroCHLOROthiazide [Hydrodiuril] 12.5 mg PO DAILY 01/27/18 01/27/18 lisinopriL [Zestril] 5 mg PO DAILY 01/27/18 01/27/18 Previous Rx's Medication Instructions Recorded Docusate [Colace] 100 mg PO DAILY #20 capsule 01/29/18 HYDROcodone/APAP 5-325MG [[place] 1 tab PO Q6HR PRN 3 Days #10 tab 01/29/18 5-325] Ondansetron Odt [Zofran Odt] 4 mg PO Q8HR PRN #10 tab 12/29/19 Allergies Allergy/AdvReac Type Severity Reaction Status Date / Time aspirin Allergy Unknown Verified 12/29/19 19:43 codeine Allergy Unknown Verified 12/29/19 19:43 Review of Systems ROS Statement: Those systems with pertinent positive or pertinent negative responses have been documented in the HPI. ROS Other: All systems not noted in ROS Statement are negative. Past Medical History Past Medical History: Hypertension, Thyroid Disorder Additional Past Medical History / Comment(s): personality disorder, ptsd, gallstones. History of Any Multi-Drug Resistant Organisms: None Reported Past Surgical History: Cholecystectomy, Ear Surgery Additional Past Surgical History / Comment(s): left ear drum, bunionectomy bilateral feet, Past Psychological History: Anxiety, Bipolar, Depression Smoking Status: Current every day smoker Past Alcohol Use History: Rare Past Drug Use History: None Reported - Past Family History Mother Family Medical History: Cancer Additional Family Medical History / Comment(s): leukemia General Exam Limitations: no limitations General appearance: alert, in no apparent distress Head exam: Present: atraumatic, normocephalic Eye exam: Present: normal appearance, EOMI ENT exam: Present: mucous membranes moist Neck exam: Present: other (Trachea is in midline) Respiratory exam: Present: normal lung sounds bilaterally. Absent: respiratory distress, wheezes, rales, rhonchi Cardiovascular Exam: Present: regular rate, normal rhythm, normal heart sounds, other (Normal radial pulses bilaterally) GI/Abdominal exam: Present: soft, normal bowel sounds, other (Obese abdomen; moderate diffuse lower abdominal tenderness). Absent: guarding, rebound Extremities exam: Present: full ROM. Absent: tenderness, pedal edema Back exam: Present: normal inspection, full ROM. Absent: tenderness, CVA tenderness (R), CVA tenderness (L) Neurological exam: Present: alert, oriented X3, other (No evidence of lower extremity neurological deficit or saddle anesthesia). Absent: motor sensory deficit Psychiatric exam: Present: normal affect, normal mood Skin exam: Present: warm, dry, intact, normal color Course Vital Signs 12/29/19 12/29/19 12/29/19 19:40 20:40 21:40 Temperature 98 F 98.0 F Pulse Rate 90 79 80 Respiratory 18 19 18 Rate Blood Pressure 153/107 103/78 139/82 O2 Sat by Pulse 99 99 98 Oximetry 12/29/19 22:45 Temperature 97.8 F Pulse Rate 78 Respiratory 18 Rate Blood Pressure 129/77 O2 Sat by Pulse 97 Oximetry - Reevaluation(s) Reevaluation #1: 12/29/19 23:47 Patient states that her pain is improved with ED treatment, and she denies dev elopment of any new pain or symptoms while in the ED. Patient's abdomen remained soft and without any surgical signs on examination. Patient is aware of her test results, and she feels comfortable going home at this time. Patient was counseled about abdominal pain, back pain, vomiting and ovarian cysts. Patient was clearly explained return and follow-up instructions. Patient was instructed to follow up closely with her primary care provider. Patient feels comfortable with this plan. Medical Decision Making - Medical Decision Making Patient is afebrile. Patient's abdomen is soft and without any surgical signs on examination. Patient's labs are fairly unremarkable besides mild leukocytosis. Patient's CT abd/pelv is negative. Patient's pelvic ultrasound is only positive for a right ovarian cyst. I do not suspect an emergent or surgical condition as the cause of the patient's symptoms. Will discharge patient home with clear return and follow-up instructions given. Patient feels comfortable with this plan. - Lab Data Result diagrams: 12/29/19 20:07 12/29/19 20:07 Lab Results 12/29/19 12/29/19 12/29/19 Range/Units 20:07 20:07 20:07 WBC 13.1 H (3.8-10.6) k/uL RBC 4.63 (3.80-5.40) m/uL Hgb 13.1 (11.4-16.0) gm/dL Hct 40.4 (34.0-46.0) % MCV 87.2 (80.0-100.0) fL MCH 28.3 (25.0-35.0) pg MCHC 32.5 (31.0-37.0) g/dL RDW 15.0 (11.5-15.5) % Plt Count 263 (150-450) k/uL Neutrophils % 56 % Lymphocytes % 33 % Monocytes % 4 % Eosinophils % 4 % Basophils % 1 % Neutrophils # 7.4 (1.3-7.7) k/uL Lymphocytes # 4.4 (1.0-4.8) k/uL Monocytes # 0.5 (0-1.0) k/uL Eosinophils # 0.5 (0-0.7) k/uL Basophils # 0.1 (0-0.2) k/uL Sodium 137 (137-145) mmol/L Potassium 4.2 (3.5-5.1) mmol/L Chloride 105 (98-107) mmol/L Carbon Dioxide 24 (22-30) mmol/L Anion Gap 8 mmol/L BUN 21 H (7-17) mg/dL Creatinine 0.96 (0.52-1.04) mg/dL Est GFR (CKD-EPI)AfAm 89 (>60 ml/min/1.73 sqM) Est GFR (CKD-EPI)NonAf 77 (>60 ml/min/1.73 sqM) Glucose 97 (74-99) mg/dL Calcium 9.3 (8.4-10.2) mg/dL Total Bilirubin 0.3 (0.2-1.3) mg/dL AST 21 (14-36) U/L ALT 16 (4-34) U/L Alkaline Phosphatase 77 (38-126) U/L Total Protein 7.1 (6.3-8.2) g/dL Albumin 4.3 (3.5-5.0) g/dL Lipase 64 (23-300) U/L HCG, Qual Not Detected Urine Color Yellow Urine Appearance Cloudy H (Clear) Urine pH 5.5 (5.0-8.0) Ur Specific [place] 1.042 H (1.001-1.035) Urine Protein 1+ H (Negative) Urine Glucose (UA) Negative (Negative) Urine Ketones Negative (Negative) Urine Blood Negative (Negative) Urine Nitrite Negative (Negative) Urine Bilirubin Negative (Negative) Urine Urobilinogen 4.0 (<2.0) mg/dL Ur Leukocyte Esterase Negative (Negative) Urine RBC 3 (0-5) /hpf Urine WBC 1 (0-5) /hpf Ur Squamous Epith Cells 1 (0-4) /hpf Hyaline Casts 1 (0-2) /lpf Urine Mucus Many H (None) /hpf - Radiology Data Radiology results: report reviewed (CT abdomen/pelvis with IV contrast is negative; pelvic ultrasound: IUD in good position, small complex cystic on right ovary, normal uterus, no evidence of ovarian torsion) Disposition Clinical Impression: Abdominal pain, Lumbar back pain, Nausea and vomiting, Right ovarian cyst Disposition: HOME SELF-CARE Condition: Stable Instructions (If sedation given, give patient instructions): Acute Nausea and Vomiting (ED), Abdominal Pain (ED), Back Pain (ED), Ovarian Cyst (ED) Additional Instructions: Return to the ER immediately should you develop new or worsening pain, persistent vomiting, a fever, shortness of breath, feeling dizzy or faint, leg numbness or weakness, trouble controlling your bladder or bowels, or new or worsening symptoms. Follow up closely with your primary care provider. Prescriptions: Ondansetron Odt [Zofran Odt] 4 mg PO Q8HR PRN #10 tab PRN Reason: Nausea Is patient prescribed a controlled substance at d/c from ED?: No Referrals: Fabián Reynolds MD [Primary Care Provider] - 1-2 days Time of Disposition: 23:49
[2019-12-29] MEDS ORDERED: ONDANSETRON 4 MG/2 ML VIAL IVP STA (20:00)
[2019-12-29] MEDS ORDERED: SODIUM CHLORIDE 0.9% 1,000 ML IV STA (20:00)
[2019-12-29] MEDS ORDERED: HYDROmorphone 0.5 MG/0.5 ML SYRINGE IVP STA ×2 (20:02→22:38)
[2019-12-29 20:24] LABS: Appearance,Urine Cloudy (Clear); Bilirubin,Urine Negative (Negative); Blood,Urine Negative (Negative); Color,Urine Yellow; Glucose,Urine (UA) Negative (Negative); Hyaline Casts,Urine 1 /lpf (0-2); Ketones,Urine Negative (Negative); Leukocyte Esterase,Urine Negative (Negative); Mucus,Urine Many /hpf; Nitrite,Urine Negative (Negative); PH, Urine 5.5 (5.0-8.0); Protein,Urine 1+ (Negative); RBC,Urine 3 /hpf (0-5); Specific Gravity,Urine 1.042 (1.001-1.035); Squamous Epithelial Cell,Urine 1 /hpf (0-4); WBC,Urine 1 /hpf (0-5)
[2019-12-29 20:33] LABS: Basophils # (A) 0.1 k/uL (0-0.2); Basophils % (A) 1 %; Eosinophils # (A) 0.5 k/uL (0-0.7); Eosinophils % (A) 4 %; HCT 40.4 % (34.0-46.0); HGB 13.1 gm/dL (11.4-16.0); Lymphocytes # (A) 4.4 k/uL (1.0-4.8); Lymphocytes % (A) 33 %; MCH 28.3 pg (25.0-35.0); MCHC 32.5 g/dL (31.0-37.0); MCV 87.2 fL (80.0-100.0); Mean Platelet Volume 7.2; Monocytes # (A) 0.5 k/uL (0-1.0); Monocytes % (A) 4 %; Neutrophils # (A) 7.4 k/uL (1.3-7.7); Neutrophils % (A) 56 %; Platelet Count 263 k/uL (150-450); RBC 4.63 m/uL (3.80-5.40); WBC 13.1 k/uL (3.8-10.6)
[2019-12-29 20:35] LABS: HCG,Qualitative Serum Not Detected
[2019-12-29 20:36] LABS: ALT 16 U/L (4-34); AST 21 U/L (14-36); African American GFR (CKD) 89 (>60 ml/min/1.73 sqM); Albumin 4.3 g/dL (3.5-5.0); Alkaline Phosphatase 77 U/L (38-126); Anion Gap 8 mmol/L; Blood Urea Nitrogen 21 mg/dL (7-17); Calcium 9.3 mg/dL (8.4-10.2); Carbon Dioxide 24 mmol/L (22-30); Chloride 105 mmol/L (98-107); Glucose 97 mg/dL (74-99); Non-African American GFR(CKD) 77 (>60 ml/min/1.73 sqM); Potassium 4.2 mmol/L (3.5-5.1); Sodium 137 mmol/L (137-145); Total Bilirubin 0.3 mg/dL (0.2-1.3); Total Protein 7.1 g/dL (6.3-8.2)
--- NOTE | 2019-12-29 21:37 | CT ---
EXAMINATION TYPE: CT abdomen pelvis w con DATE OF EXAM: 12/29/2019 COMPARISON: None HISTORY: Abdominal pain CT DLP: 1810.8 mGycm Automated exposure control for dose reduction was used. CONTRAST: Performed with IV Contrast, patient injected with 100 mL of Isovue 300. Lung bases are clear. There is no pleural effusion. Heart size is normal. There is no pericardial eff usion. Stomach is intact. Liver spleen pancreas appear normal. Bile ducts are nondilated. There are c lips from cholecystectomy. There is no adrenal mass. Kidneys show satisfactory contrast opacification. There is no hydronephrosi s. Delayed images show normal renal excretion. Ureters are not dilated. There is no retroperitoneal a denopathy. Uterus is anteverted. There is no inguinal hernia. There is no free fluid in the pelvis. There is no adnexal mass. There is IUD in the uterine fundus. Appendix is lateral and posterior and appears normal. There is no mesenteric edema. There is no ascit es or free air. There is no bowel obstruction. The lumbar vertebra have normal alignment. Posterior elements are intact. There is no compression fra cture. Bony pelvis is intact. The hip joints appear intact. IMPRESSION: Negative exam. Normal appendix. No renal stone or obstruction. I do not see a cause for abdominal ester n.
[2019-12-29 22:01] VITALS: RESP 18
--- NOTE | 2019-12-29 23:41 | US ---
EXAMINATION TYPE: US transvaginal DATE OF EXAM: 12/29/2019 COMPARISON: NONE CLINICAL HISTORY: lower abdominal pain. pelvic pain, spotting TECHNIQUE: Transvaginal (TV) Date of LMP: 11/25/19 EXAM MEASUREMENTS: Uterus: 7.1 x 4.1 x 4.2 cm Endometrial Stripe: 0.5 cm Right Ovary: 2.5 x 1.9 x 1.7 cm Left Ovary: 2.1 x 1.7 x 1.6 cm 1. Uterus: Anteverted 2. Endometrium: IUD visualized within fundus/body of uterus 3. Right Ovary: complex area = 1.7 x 1.7 x 1.4cm 4. Left Ovary: follicles noted Spectral, color and waveform doppler imaging shows good arterial and venous flow within the ovaries ; there is no evidence for ovarian torsion. 5. Bilateral Adnexa: wnl 6. Posterior cul-de-sac: wnl IMPRESSION: IUD in good position. Small complex cyst on the right ovary. Normal uterus. No evidence of ovarian to rsion.
[2019-12-30 00:13] VITALS: BP 137/82; PULSE 81; TEMP 98.1
== END 2019-12-30 | disposition home or self-care (01) ==
LOC: EC 19:38
DX: N83.201 Unspecified ovarian cyst, right side (principal); I10 Essential (primary) hypertension; E07.9 Disorder of thyroid, unspecified; F41.9 Anxiety disorder, unspecified; F31.9 Bipolar disorder, unspecified; Z79.890 Hormone replacement therapy; Z79.899 Other long term (current) drug therapy; Z90.49 Acquired absence of other specified parts of digestive tract; Z88.5 Allergy status to narcotic agent; Z88.6 Allergy status to analgesic agent; F17.200 Nicotine dependence, unspecified, uncomplicated
CPT/HCPCS: 36415; 80053; 83690; 85025; 81001; 84703; 93975; 76830; 74177; 99284; 96374; 96375; 96376; 96361; J2405; J1170; Q9967

== ENCOUNTER 2020-01-14 23:22 | Emergency (ER) | payer OTHER ==
[2020-01-14 23:26] VITALS: RESP 18; TEMP 100.2
[2020-01-14] MEDS ORDERED: ONDANSETRON 4 MG/2 ML VIAL IVP STA (23:54)
[2020-01-14] MEDS ORDERED: HYDROmorphone 0.5 MG/0.5 ML SYRINGE IVP STA (23:54)
[2020-01-14] MEDS ORDERED: SODIUM CHLORIDE 0.9% 1,000 ML IV STA (23:54)
[2020-01-14] MEDS ORDERED: PANTOPRAZOLE 40 MG/10 ML VIAL IVP STA (23:54)
--- NOTE | 2020-01-14 23:57 | ED ---
Abdominal Pain HPI - General Chief Complaint: Abdominal Pain Stated Complaint: Abdominal Pain Time Seen by Provider: 01/14/20 23:30 Source: patient Mode of arrival: ambulatory Limitations: no limitations - History of Present Illness Initial Comments: Patient is a 34-year-old female presenting to the emergency department with a chief complaint of abdominal pain. Patient states she was diagnosed with ovarian cyst about 2 weeks ago when she was in the emergency department. Patient reports she was advised to follow with her technology auditor but refused to do it. Patient states now she continues to have suprapubic abdominal pain that now seems to be moving to the periumbilical region. She does report some of the pain is radiating diffusely to her back. Patient reports developing multiple episodes of nonbilious nonbloody vomiting today. Denies increased urgency frequency or dysuria. She denies any vaginal discharge, foul smell or any bleeding. Denies hematuria, hematochezia or melena. Denies any chest pain or shortness of breath. States her menstrual period was 2 weeks ago. She does have an IUD. She did see her technology auditor about a months ago for an IUD check. - Related Data Home Medications Medication Instructions Recorded Confirmed Lurasidone [Latuda] 40 mg PO DAILY 01/23/14 01/27/18 lamoTRIgine [LaMICtal] 150 mg PO BID 01/23/14 01/27/18 Levothyroxine Sodium [Synthroid] 50 mcg PO DAILY 01/27/18 01/27/18 Topiramate [Topamax] 50 mg PO DAILY 01/27/18 01/27/18 hydroCHLOROthiazide [Hydrodiuril] 12.5 mg PO DAILY 01/27/18 01/27/18 lisinopriL [Zestril] 5 mg PO DAILY 01/27/18 01/27/18 Previous Rx's Medication Instructions Recorded Docusate [Colace] 100 mg PO DAILY #20 capsule 01/29/18 HYDROcodone/APAP 5-325MG [[place] 1 tab PO Q6HR PRN 3 Days #10 tab 01/29/18 5-325] Ondansetron Odt [Zofran Odt] 4 mg PO Q8HR PRN #10 tab 12/29/19 Allergies Allergy/AdvReac Type Severity Reaction Status Date / Time aspirin Allergy Unknown Verified 01/14/20 23:26 codeine Allergy Unknown Verified 01/14/20 23:26 Review of Systems ROS Statement: Those systems with pertinent positive or pertinent negative responses have been documented in the HPI. ROS Other: All systems not noted in ROS Statement are negative. Past Medical History Past Medical History: Hypertension, Thyroid Disorder Additional Past Medical History / Comment(s): personality disorder, ptsd, gallstones. History of Any Multi-Drug Resistant Organisms: None Reported Past Surgical History: Cholecystectomy, Ear Surgery Additional Past Surgical History / Comment(s): left ear drum, bunionectomy bilateral feet, Past Psychological History: Anxiety, Bipolar, Depression Smoking Status: Current every day smoker Past Alcohol Use History: Rare Past Drug Use History: None Reported - Past Family History Mother Family Medical History: Cancer Additional Family Medical History / Comment(s): leukemia General Exam Limitations: no limitations General appearance: alert, in no apparent distress, obese Head exam: Present: atraumatic, normocephalic, normal inspection Eye exam: Present: normal appearance, PERRL, EOMI Pupils: Present: normal accommodation ENT exam: Present: normal exam, normal oropharynx, mucous membranes moist, TM's normal bilaterally, normal external ear exam Neck exam: Present: normal inspection, full ROM. Absent: tenderness Respiratory exam: Present: normal lung sounds bilaterally. Absent: respiratory distress, wheezes, rales Cardiovascular Exam: Present: regular rate, normal rhythm, normal heart sounds GI/Abdominal exam: Present: soft, tenderness (Diffuse suprapubic tenderness), normal bowel sounds. Absent: distended, guarding, rebound, rigid Extremities exam: Present: normal inspection, full ROM, normal capillary refill Back exam: Present: normal inspection, full ROM. Absent: tenderness, CVA tenderness (R), CVA tenderness (L) Neurological exam: Present: alert, oriented X3, normal gait Psychiatric exam: Present: normal affect, normal mood Skin exam: Present: warm, dry, intact, normal color Course Vital Signs 01/14/20 01/15/20 23:24 01:41 Temperature 100.2 F H Pulse Rate 90 74 Respiratory 18 18 Rate Blood Pressure 164/117 142/84 O2 Sat by Pulse 99 98 Oximetry Medical Decision Making - Medical Decision Making Patient 34-year-old female presenting to the emergency department with a chief complaint of abdominal pain. On physical examination, patient does have diffuse lower abdominal pain. No CVA tenderness. Patient was given IV fluids, antiemetics and analgesia. CBC CMP is unremarkable. Urine culture pending. UA shows no signs of a urinary tract infection. Patient is not . Ultrasound reveals no signs of ovarian torsion. on reevaluation, patient reports improvement in symptoms. States she is going to follow with her technology auditor. Patient discharged with a Zofran starter pack 20 tablets of Zo jhony at the pharmacy. Strict return prescribed as were thoroughly discussed patient was understanding and agreeable. Case discussed with physician. - Lab Data Result diagrams: 01/15/20 00:05 01/15/20 00:05 Lab Results 01/15/20 01/15/20 01/15/20 Range/Units 00:05 00:05 00:05 WBC 10.2 (3.8-10.6) k/uL RBC 4.62 (3.80-5.40) m/uL Hgb 12.9 (11.4-16.0) gm/dL Hct 40.4 (34.0-46.0) % MCV 87.5 (80.0-100.0) fL MCH 27.9 (25.0-35.0) pg MCHC 31.9 (31.0-37.0) g/dL RDW 14.9 (11.5-15.5) % Plt Count 232 (150-450) k/uL Neutrophils % 51 % Lymphocytes % 35 % Monocytes % 7 % Eosinophils % 6 % Basophils % 1 % Neutrophils # 5.2 (1.3-7.7) k/uL Lymphocytes # 3.5 (1.0-4.8) k/uL Monocytes # 0.7 (0-1.0) k/uL Eosinophils # 0.6 (0-0.7) k/uL Basophils # 0.1 (0-0.2) k/uL Sodium (137-145) mmol/L Potassium (3.5-5.1) mmol/L Chloride (98-107) mmol/L Carbon Dioxide (22-30) mmol/L Anion Gap mmol/L BUN (7-17) mg/dL Creatinine (0.52-1.04) mg/dL Est GFR (CKD-EPI)AfAm (>60 ml/min/1.73 sqM) Est GFR (CKD-EPI)NonAf (>60 ml/min/1.73 sqM) Glucose (74-99) mg/dL Calcium (8.4-10.2) mg/dL Total Bilirubin (0.2-1.3) mg/dL AST (14-36) U/L ALT (4-34) U/L Alkaline Phosphatase (38-126) U/L Total Protein (6.3-8.2) g/dL Albumin (3.5-5.0) g/dL Lipase (23-300) U/L Urine Color Yellow Urine Appearance Turbid H (Clear) Urine pH 6.5 (5.0-8.0) Ur Specific [place] 1.024 (1.001-1.035) Urine Protein Trace H (Negative) Urine Glucose (UA) Negative (Negative) Urine Ketones Negative (Negative) Urine Blood Trace H (Negative) Urine Nitrite Negative (Negative) Urine Bilirubin Negative (Negative) Urine Urobilinogen 2.0 (<2.0) mg/dL Ur Leukocyte Esterase Negative (Negative) Urine RBC 1 (0-5) /hpf Urine WBC 2 (0-5) /hpf Amorphous Sediment Moderate H (None) /hpf Urine Bacteria Rare H (None) /hpf Urine Mucus Rare H (None) /hpf Urine HCG, Qual Not Detected (Not Detectd) 01/15/20 Range/Units 00:05 WBC (3.8-10.6) k/uL RBC (3.80-5.40) m/uL Hgb (11.4-16.0) gm/dL Hct (34.0-46.0) % MCV (80.0-100.0) fL MCH (25.0-35.0) pg MCHC (31.0-37.0) g/dL RDW (11.5-15.5) % Plt Count (150-450) k/uL Neutrophils % % Lymphocytes % % Monocytes % % Eosinophils % % Basophils % % Neutrophils # (1.3-7.7) k/uL Lymphocytes # (1.0-4.8) k/uL Monocytes # (0-1.0) k/uL Eosinophils # (0-0.7) k/uL Basophils # (0-0.2) k/uL Sodium 139 (137-145) mmol/L Potassium 4.3 (3.5-5.1) mmol/L Chloride 105 (98-107) mmol/L Carbon Dioxide 28 (22-30) mmol/L Anion Gap 6 mmol/L BUN 16 (7-17) mg/dL Creatinine 1.04 (0.52-1.04) mg/dL Est GFR (CKD-EPI)AfAm 81 (>60 ml/min/1.73 sqM) Est GFR (CKD-EPI)NonAf 70 (>60 ml/min/1.73 sqM) Glucose 107 H (74-99) mg/dL Calcium 9.5 (8.4-10.2) mg/dL Total Bilirubin 0.3 (0.2-1.3) mg/dL AST 18 (14-36) U/L ALT 16 (4-34) U/L Alkaline Phosphatase 74 (38-126) U/L Total Protein 6.9 (6.3-8.2) g/dL Albumin 4.0 (3.5-5.0) g/dL Lipase 67 (23-300) U/L Urine Color Urine Appearance (Clear) Urine pH (5.0-8.0) Ur Specific [place] (1.001-1.035) Urine Protein (Negative) Urine Glucose (UA) (Negative) Urine Ketones (Negative) Urine Blood (Negative) Urine Nitrite (Negative) Urine Bilirubin (Negative) Urine Urobilinogen (<2.0) mg/dL Ur Leukocyte Esterase (Negative) Urine RBC (0-5) /hpf Urine WBC (0-5) /hpf Amorphous Sediment (None) /hpf Urine Bacteria (None) /hpf Urine Mucus (None) /hpf Urine HCG, Qual (Not Detectd) Disposition Clinical Impression: Abdominal pain, Nausea & vomiting Disposition: HOME SELF-CARE Condition: Stable Instructions (If sedation given, give patient instructions): Abdominal Pain (ED) Additional Instructions: Follow-up with her technology auditor. Return to emergency department if symptoms worsen. Is patient prescribed a controlled substance at d/c from ED?: No Referrals: Fabián Reynolds MD [Primary Care Provider] - 1-2 days Time of Disposition: 02:14
[2020-01-15 00:26] LABS: Basophils # (A) 0.1 k/uL (0-0.2); Basophils % (A) 1 %; Eosinophils # (A) 0.6 k/uL (0-0.7); Eosinophils % (A) 6 %; HCT 40.4 % (34.0-46.0); HGB 12.9 gm/dL (11.4-16.0); Lymphocytes # (A) 3.5 k/uL (1.0-4.8); Lymphocytes % (A) 35 %; MCH 27.9 pg (25.0-35.0); MCHC 31.9 g/dL (31.0-37.0); MCV 87.5 fL (80.0-100.0); Monocytes # (A) 0.7 k/uL (0-1.0); Monocytes % (A) 7 %; Neutrophils # (A) 5.2 k/uL (1.3-7.7); Neutrophils % (A) 51 %; Platelet Count 232 k/uL (150-450); RBC 4.62 m/uL (3.80-5.40); RDW 14.9 % (11.5-15.5); WBC 10.2 k/uL (3.8-10.6)
[2020-01-15 00:32] LABS: Calcium 9.5 mg/dL (8.4-10.2); Potassium 4.3 mmol/L (3.5-5.1); Total Bilirubin 0.3 mg/dL (0.2-1.3); Total Protein 6.9 g/dL (6.3-8.2)
[2020-01-15 00:35] LABS: Amorphous Sediment,Urine Moderate /hpf; Appearance,Urine Turbid (Clear); Bacteria,Urine Rare /hpf; Bilirubin,Urine Negative (Negative); Blood,Urine Trace (Negative); Color,Urine Yellow; Glucose,Urine (UA) Negative (Negative); Ketones,Urine Negative (Negative); Leukocyte Esterase,Urine Negative (Negative); Mucus,Urine Rare /hpf; Nitrite,Urine Negative (Negative); PH, Urine 6.5 (5.0-8.0); Protein,Urine Trace (Negative); RBC,Urine 1 /hpf (0-5); Specific Gravity,Urine 1.024 (1.001-1.035); WBC,Urine 2 /hpf (0-5)
[2020-01-15 01:42] VITALS: BP 142/84; PULSE 74
--- NOTE | 2020-01-15 02:01 | US ---
EXAM: US Pelvis Transvaginal CLINICAL HISTORY: ITS.REASON US Reason: r/o ovarian torsion, hx of obraian cyst TECHNIQUE: Real-time transvaginal pelvic ultrasound with image documentation. Transvaginal imaging was used for better evaluation of the endometrium and adnexa. COMPARISON: No relevant prior studies available. FINDINGS: Uterus/cervix: No myometrial mass. Normal endometrial thickness. IUD is in place. Right ovary: 2.8 cm. No mass. 1 cm follicle. Normal blood flow. Left ovary: 3.4 cm. No mass. 1 cm follicle. Normal blood flow. Free fluid: No free fluid. IMPRESSION: No acute findings.
[2020-01-15] MEDS ORDERED: ONDANSETRON 4 MG ODT STARTER PACK 2 TAB BTL PO STA (02:11)
== END 2020-01-15 02:20 | disposition home or self-care (01) ==
LOC: EC 23:22
DX: R10.30 Lower abdominal pain, unspecified (principal); R11.2 Nausea with vomiting, unspecified; I10 Essential (primary) hypertension; E07.9 Disorder of thyroid, unspecified; F41.9 Anxiety disorder, unspecified; F31.9 Bipolar disorder, unspecified; F43.10 Post-traumatic stress disorder, unspecified; F17.200 Nicotine dependence, unspecified, uncomplicated; Z79.890 Hormone replacement therapy; Z79.899 Other long term (current) drug therapy; Z88.6 Allergy status to analgesic agent; Z88.5 Allergy status to narcotic agent; Z87.19 Personal history of other diseases of the digestive system; Z90.49 Acquired absence of other specified parts of digestive tract
CPT/HCPCS: 36415; 80053; 83690; 85025; 81001; 81025; 87086; 93975; 76830; 99284; 96374; 96375 ×2; 96361; J2405; S0119; C9113; J1170

== ENCOUNTER 2020-02-14 20:53 | Emergency (ER) | payer OTHER ==
[2020-02-14 21:16] VITALS: RESP 18
[2020-02-14] MEDS ORDERED: METOCLOPRAMIDE 5 MG/ML 2 ML VIAL IVP STA (21:18)
[2020-02-14] MEDS ORDERED: KETOROLAC 15 MG/ML 1 ML VIAL IVP STA (21:19)
[2020-02-14] MEDS ORDERED: SODIUM CHLORIDE 0.9% 1,000 ML IV STA (21:19)
[2020-02-14] MEDS ORDERED: diphenhydrAMINE 50 MG/ML 1 ML VIAL IVP STA (21:19)
--- NOTE | 2020-02-14 21:23 | ED ---
Headache HPI - General Chief Complaint: Headache Stated Complaint: Headache Time Seen by Provider: 02/14/20 21:18 Mode of arrival: ambulatory - History of Present Illness Initial Comments: 35-year-old female with history of migraine headaches presenting to the emergency department with a chief complaint of a migraine headache. Patient states this current headache started around 4 PM with a gradual onset. States that this is one of the worst migraine that she's had, but it is not the worst headache of her life. She does report photophobia and nausea with multiple episodes of nonbilious and nonbloody vomiting. She reports the pain is located in the left side of her head and feels like her other migraines. States that earlier this year she had a CT of the head but no significant findings. She denies one-sided weakness or paresthesias. Denies any visual disturbances. - Related Data Home Medications Medication Instructions Recorded Confirmed Lurasidone [Latuda] 40 mg PO DAILY 01/23/14 01/27/18 lamoTRIgine [LaMICtal] 150 mg PO BID 01/23/14 01/27/18 Levothyroxine Sodium [Synthroid] 50 mcg PO DAILY 01/27/18 01/27/18 Topiramate [Topamax] 50 mg PO DAILY 01/27/18 01/27/18 hydroCHLOROthiazide [Hydrodiuril] 12.5 mg PO DAILY 01/27/18 01/27/18 lisinopriL [Zestril] 5 mg PO DAILY 01/27/18 01/27/18 Previous Rx's Medication Instructions Recorded Docusate [Colace] 100 mg PO DAILY #20 capsule 01/29/18 HYDROcodone/APAP 5-325MG [[place] 1 tab PO Q6HR PRN 3 Days #10 tab 01/29/18 5-325] Ondansetron Odt [Zofran Odt] 4 mg PO Q8HR PRN #10 tab 12/29/19 Allergies Allergy/AdvReac Type Severity Reaction Status Date / Time aspirin Allergy Unknown Verified 02/14/20 21:15 codeine Allergy Unknown Verified 02/14/20 21:15 Review of Systems ROS Statement: Those systems with pertinent positive or pertinent negative responses have been documented in the HPI. ROS Other: All systems not noted in ROS Statement are negative. Past Medical History Past Medical History: Hypertension, Thyroid Disorder Additional Past Medical History / Comment(s): personality disorder, ptsd, gallstones. History of Any Multi-Drug Resistant Organisms: None Reported Past Surgical History: Cholecystectomy, Ear Surgery Additional Past Surgical History / Comment(s): left ear drum, bunionectomy bilateral feet, Past Psychological History: Anxiety, Bipolar, Depression Smoking Status: Current every day smoker Past Alcohol Use History: Rare Past Drug Use History: None Reported - Past Family History Mother Family Medical History: Cancer Additional Family Medical History / Comment(s): leukemia General Exam Limitations: no limitations General appearance: alert, in no apparent distress Head exam: Present: atraumatic, normocephalic, normal inspection Eye exam: Present: normal appearance, PERRL, EOMI Pupils: Present: normal accommodation ENT exam: Present: normal exam, normal oropharynx, mucous membranes moist, TM's normal bilaterally, normal external ear exam Neck exam: Present: normal inspection, full ROM. Absent: tenderness Respiratory exam: Present: normal lung sounds bilaterally. Absent: respiratory distress, wheezes, rales, rhonchi, stridor, chest wall tenderness, accessory muscle use Cardiovascular Exam: Present: regular rate, normal rhythm, normal heart sounds. Absent: systolic murmur GI/Abdominal exam: Absent: soft, distended, tenderness, guarding, rebound, rigid Extremities exam: Present: normal inspection, full ROM, normal capillary refill. Absent: tenderness, pedal edema, joint swelling, calf tenderness Back exam: Present: normal inspection, full ROM. Absent: tenderness, CVA tenderness (R), CVA tenderness (L) Neurological exam: Present: alert, oriented X3, CN II-XII intact, normal gait Psychiatric exam: Present: normal affect, normal mood Skin exam: Present: warm, dry, intact, normal color Course Vital Signs 02/14/20 21:13 Temperature 98.5 F Pulse Rate 83 Respiratory 18 Rate Blood Pressure 188/120 O2 Sat by Pulse 100 Oximetry Medical Decision Making - Medical Decision Making 35-year-old female with history of migraines presenting to the emergency department with a chief complaint of migraine. Gradual onset headache. This is one of her worst migraine headaches but not the worst headache of her life. Patient was given analgesia, antiemetics and IV fluids. Patient did have a computed tomography scan of the brain earlier this year with no acute findings. On reevaluation, patient reports improvement in her symptoms. States her nausea has resolved. She also reports normal for sensitivity. Patient states she is comfortable to go home. Advised the patient to follow with a neurologist and obtain an MRI of the brain. I gave her contact information. Should return parameters were thoroughly discussed with patient is understanding and agreeable. Case discussed with physician. Disposition Clinical Impression: Migraine headache without aura, Nausea & vomiting Disposition: HOME SELF-CARE Condition: Stable Instructions (If sedation given, give patient instructions): Acute Headache (ED) Additional Instructions: Follow with a neurologist. Return to emergency department if symptoms worsen. Is patient prescribed a controlled substance at d/c from ED?: No Referrals: Fabián Reynolds MD [Primary Care Provider] - 1-2 days Amanda Trevino MD [Medical Doctor] - 1-2 days Time of Disposition: 22:29
[2020-02-14] MEDS ORDERED: ONDANSETRON 4 MG/2 ML VIAL IVP STA (22:04)
[2020-02-14 23:09] VITALS: BP 153/86; PULSE 78; TEMP 98.6
== END 2020-02-14 23:09 | disposition home or self-care (01) ==
LOC: EC 20:53
DX: G43.909 Migraine, unspecified, not intractable, without status migrainosus (principal); F41.9 Anxiety disorder, unspecified; F31.9 Bipolar disorder, unspecified; F17.200 Nicotine dependence, unspecified, uncomplicated; I10 Essential (primary) hypertension; E07.9 Disorder of thyroid, unspecified; Z79.890 Hormone replacement therapy; Z79.899 Other long term (current) drug therapy; Z90.49 Acquired absence of other specified parts of digestive tract; Z88.5 Allergy status to narcotic agent; Z88.6 Allergy status to analgesic agent
CPT/HCPCS: 99283; 96374; 96375 ×3; 96361; J1200; J2765; J2405; J1885

== ENCOUNTER 2020-07-29 18:25 | Emergency (ER) | payer OTHER ==
--- NOTE | 2020-07-29 19:30 | ED ---
General Adult HPI - General Chief complaint: Chest Pain Stated complaint: Chest pain Time Seen by Provider: 07/29/20 18:25 Source: patient, RN notes reviewed, old records reviewed Mode of arrival: ambulatory Limitations: no limitations - History of Present Illness Initial comments: This is a 35-year-old female who presents to the emergency department co mplaining of chest discomfort. Patient states started after she took a Tessalon Perle and 8. Patient states it reminds her of her gallbladder pain. Patient states it is reproducible when she presses on the xiphoid area in the epigastric area. Patient also states she has been short of breath a little bit with a cough over the last few days and that is why she was given a Tessalon Perles. Patient denies any fevers chills. Patient denies any sputum production. Patient denies any nausea vomiting or diarrhea. She states she's prediabetic has no history of high blood pressure high cholesterol but does smoke. Patient states she has no immediate family members with heart disease. Patient denies any calf tenderness or leg swelling. - Related Data Home Medications Medication Instructions Recorded Confirmed Lurasidone [Latuda] 40 mg PO DAILY 01/23/14 07/29/20 Levothyroxine Sodium [Synthroid] 50 mcg PO DAILY 01/27/18 07/29/20 Albuterol Nebulized [Ventolin 2.5 mg INHALATION RT-BID PRN 07/29/20 07/29/20 Nebulized] Albuterol Sulfate [Proair Hfa] 2 puff INHALATION RT-Q4H PRN 07/29/20 07/29/20 Amoxicillin/Potassium Clav 1 tab PO Q12HR 07/29/20 07/29/20 [Augmentin 875-125 Tablet] Benzonatate [Tessalon Perles] 100 mg PO TID PRN 07/29/20 07/29/20 LORazepam [Ativan] 0.5 mg PO BID PRN 07/29/20 07/29/20 Mometasone Inhalr 220 Mcg/Puff 2 puff INHALATION RT-BID 07/29/20 07/29/20 [Asmanex] lamoTRIgine [LaMICtal] 200 mg PO BID 07/29/20 07/29/20 metFORMIN HCL [Glucophage] 500 mg PO DAILY 07/29/20 07/29/20 predniSONE [Deltasone] 20 mg PO DAILY 07/29/20 07/29/20 Allergies Allergy/AdvReac Type Severity Reaction Status Date / Time aspirin Allergy Unknown Verified 07/29/20 19:40 codeine Allergy Unknown Verified 07/29/20 19:40 Review of Systems ROS Statement: Those systems with pertinent positive or pertinent negative responses have been documented in the HPI. ROS Other: All systems not noted in ROS Statement are negative. Past Medical History Past Medical History: Hypertension, Thyroid Disorder Additional Past Medical History / Comment(s): personality disorder, ptsd, gallstones. History of Any Multi-Drug Resistant Organisms: None Reported Past Surgical History: Cholecystectomy, Ear Surgery Additional Past Surgical History / Comment(s): left ear drum, bunionectomy bila teral feet, Past Psychological History: Anxiety, Bipolar, Depression Smoking Status: Current every day smoker Past Alcohol Use History: Rare Past Drug Use History: None Reported - Past Family History Mother Family Medical History: Cancer Additional Family Medical History / Comment(s): leukemia General Exam - General Exam Comments Initial Comments: GENERAL: Patient is well-developed and well-nourished. Patient is nontoxic and well- hydrated and is in mild distress. ENT: Neck is soft and supple. No significant lymphadenopathy is noted. Oropharynx is clear. Moist mucous membranes. Neck has full range of motion without eliciting any pain. EYES: The sclera were anicteric and conjunctiva were pink and moist. Extraocular movements were intact and pupils were equal round and reactive to light. Eyelids were unremarkable. PULMONARY: Unlabored respirations. Good breath sounds bilaterally. No audible rales rhonchi or wheezing was noted. CARDIOVASCULAR: There is a regular rate and rhythm without any murmurs gallops or rubs. Chest pain is reproducible at the xiphoid in the epigastric area. ABDOMEN: Patient is very slight epigastric abdominal tenderness. SKIN: Skin is clear with no lesions or rashes and otherwise unremarkable. NEUROLOGIC: Patient is alert and oriented x3. Cranial nerves II through XII are grossly intact. Motor and sensory are also intact. Normal speech, volume and content. Symmetrical smile. MUSCULOSKELETAL: Normal extremities with adequate strength and full range of motion. No lower extremity swelling or edema. No calf tenderness. LYMPHATICS: No significant lymphadenopathy is noted PSYCHIATRIC: Normal psychiatric evaluation. Limitations: no limitations Course Vital Signs 07/29/20 07/29/20 07/29/20 18:27 20:18 20:23 Temperature 98.1 F 98.2 F Pulse Rate 111 H 91 Pulse Rate [ 111 H [employer] ] Respiratory 22 18 Rate Blood Pressure 148/87 134/88 O2 Sat by Pulse 99 96 Oximetry Medical Decision Making - Medical Decision Making EKG shows sinus tachycardia at 108 bpm TN interval is 126 QRS is 86 QT interval 322 QTC is 431. Chest x-ray shows no acute abnormality. - Lab Data Result diagrams: 07/29/20 20:11 07/29/20 20:11 Lab Results 07/29/20 07/29/20 07/29/20 Range/Units 20:11 20:11 20:11 WBC 11.5 H (3.8-10.6) k/uL RBC 4.67 (3.80-5.40) m/uL Hgb 12.0 (11.4-16.0) gm/dL Hct 37.6 (34.0-46.0) % MCV 80.6 (80.0-100.0) fL MCH 25.6 (25.0-35.0) pg MCHC 31.8 (31.0-37.0) g/dL RDW 15.3 (11.5-15.5) % Plt Count 274 (150-450) k/uL MPV 6.6 Neutrophils % 62 % Lymphocytes % 27 % Monocytes % 5 % Eosinophils % 4 % Basophils % 1 % Neutrophils # 7.1 (1.3-7.7) k/uL Lymphocytes # 3.1 (1.0-4.8) k/uL Monocytes # 0.6 (0-1.0) k/uL Eosinophils # 0.5 (0-0.7) k/uL Basophils # 0.1 (0-0.2) k/uL PT 9.6 (9.0-12.0) sec INR 0.9 (<1.2) APTT 23.2 (22.0-30.0) sec D-Dimer 0.56 (<0.60) mg/L FEU Sodium 135 L (137-145) mmol/L Potassium 4.1 (3.5-5.1) mmol/L Chloride 103 (98-107) mmol/L Carbon Dioxide 25 (22-30) mmol/L Anion Gap 7 mmol/L BUN 16 (7-17) mg/dL Creatinine 0.82 (0.52-1.04) mg/dL Est GFR (CKD-EPI)AfAm >90 (>60 ml/min/1.73 sqM) Est GFR (CKD-EPI)NonAf >90 (>60 ml/min/1.73 sqM) Glucose 124 H (74-99) mg/dL Calcium 9.5 (8.4-10.2) mg/dL Magnesium 2.1 (1.6-2.3) mg/dL Total Bilirubin 0.3 (0.2-1.3) mg/dL AST 23 (14-36) U/L ALT 22 (4-34) U/L Alkaline Phosphatase 75 (38-126) U/L Troponin I (0.000-0.034) ng/mL Total Protein 6.9 (6.3-8.2) g/dL Albumin 4.0 (3.5-5.0) g/dL Lipase 84 (23-300) U/L 07/29/20 Range/Units 20:11 WBC (3.8-10.6) k/uL RBC (3.80-5.40) m/uL Hgb (11.4-16.0) gm/dL Hct (34.0-46.0) % MCV (80.0-100.0) fL MCH (25.0-35.0) pg MCHC (31.0-37.0) g/dL RDW (11.5-15.5) % Plt Count (150-450) k/uL MPV Neutrophils % % Lymphocytes % % Monocytes % % Eosinophils % % Basophils % % Neutrophils # (1.3-7.7) k/uL Lymphocytes # (1.0-4.8) k/uL Monocytes # (0-1.0) k/uL Eosinophils # (0-0.7) k/uL Basophils # (0-0.2) k/uL PT (9.0-12.0) sec INR (<1.2) APTT (22.0-30.0) sec D-Dimer (<0.60) mg/L FEU Sodium (137-145) mmol/L Potassium (3.5-5.1) mmol/L Chloride (98-107) mmol/L Carbon Dioxide (22-30) mmol/L Anion Gap mmol/L BUN (7-17) mg/dL Creatinine (0.52-1.04) mg/dL Est GFR (CKD-EPI)AfAm (>60 ml/min/1.73 sqM) Est GFR (CKD-EPI)NonAf (>60 ml/min/1.73 sqM) Glucose (74-99) mg/dL Calcium (8.4-10.2) mg/dL Magnesium (1.6-2.3) mg/dL Total Bilirubin (0.2-1.3) mg/dL AST (14-36) U/L ALT (4-34) U/L Alkaline Phosphatase (38-126) U/L Troponin I <0.012 (0.000-0.034) ng/mL Total Protein (6.3-8.2) g/dL Albumin (3.5-5.0) g/dL Lipase (23-300) U/L Disposition Clinical Impression: Chest wall pain Disposition: HOME SELF-CARE Condition: Good Instructions (If sedation given, give patient instructions): Chest Pain (ED), Costochondritis (ED) Is patient prescribed a controlled substance at d/c from ED?: No Referrals: Fabián Reynolds MD [Primary Care Provider] - 1-2 days Time of Disposition: 20:51
--- NOTE | 2020-07-29 19:48 | XR ---
EXAMINATION TYPE: XR chest 2V DATE OF EXAM: 07/29/2020 COMPARISON: NONE HISTORY: Chest pain TECHNIQUE: 2 views FINDINGS: Heart and mediastinum are normal. Lungs are clear. Diaphragm is normal. Bony thorax appears normal. IMPRESSION: Normal chest. Normal heart.
[2020-07-29 20:23] LABS: Basophils # (A) 0.1 k/uL (0-0.2); Basophils % (A) 1 %; Eosinophils # (A) 0.5 k/uL (0-0.7); Eosinophils % (A) 4 %; HCT 37.6 % (34.0-46.0); Lymphocytes # (A) 3.1 k/uL (1.0-4.8); Lymphocytes % (A) 27 %; MCH 25.6 pg (25.0-35.0); MCHC 31.8 g/dL (31.0-37.0); MCV 80.6 fL (80.0-100.0); Mean Platelet Volume 6.6; Monocytes # (A) 0.6 k/uL (0-1.0); Monocytes % (A) 5 %; Neutrophils # (A) 7.1 k/uL (1.3-7.7); Neutrophils % (A) 62 %; Platelet Count 274 k/uL (150-450); RBC 4.67 m/uL (3.80-5.40); RDW 15.3 % (11.5-15.5); WBC 11.5 k/uL (3.8-10.6)
[2020-07-29 20:24] VITALS: BP 134/88; PULSE 91; RESP 18; TEMP 98.2
[2020-07-29 20:35] LABS: ALT 22 U/L (4-34); AST 23 U/L (14-36); African American GFR (CKD) >90 (>60 ml/min/1.73 sqM); Alkaline Phosphatase 75 U/L (38-126); Anion Gap 7 mmol/L; Blood Urea Nitrogen 16 mg/dL (7-17); Calcium 9.5 mg/dL (8.4-10.2); Carbon Dioxide 25 mmol/L (22-30); Chloride 103 mmol/L (98-107); Glucose 124 mg/dL (74-99); Lipase 84 U/L (23-300); Magnesium 2.1 mg/dL (1.6-2.3); Non-African American GFR(CKD) >90 (>60 ml/min/1.73 sqM); Potassium 4.1 mmol/L (3.5-5.1); Sodium 135 mmol/L (137-145); Total Bilirubin 0.3 mg/dL (0.2-1.3); Total Protein 6.9 g/dL (6.3-8.2)
[2020-07-29 20:36] LABS: D-Dimer 0.56 mg/L FEU (<0.60); INR 0.9 (<1.2); Partial Thromboplastin Time 23.2 sec (22.0-30.0); Prothrombin Time 9.6 sec (9.0-12.0)
== END 2020-07-29 21:15 | disposition home or self-care (01) ==
LOC: EC 18:25
DX: R07.89 Other chest pain (principal); F17.200 Nicotine dependence, unspecified, uncomplicated; I10 Essential (primary) hypertension; F41.9 Anxiety disorder, unspecified; E07.9 Disorder of thyroid, unspecified; Z79.84 Long term (current) use of oral hypoglycemic drugs
CPT/HCPCS: 36415; 71046; 80053; 83690; 83735; 84484; 85025; 85379; 85610; 85730; 93005; 99285

== ENCOUNTER 2020-11-12 20:37 | Emergency (ER) | payer OTHER ==
[2020-11-12 20:48] VITALS: TEMP 98.7
[2020-11-12] MEDS ORDERED: DICYCLOMINE 20 MG TAB PO STA (21:32)
[2020-11-12] MEDS ORDERED: traMADol 50 MG STARTER PACK 3 TAB BTL PO STA ×2 (21:32→22:47)
--- NOTE | 2020-11-12 21:32 | ED ---
Female Urogenital HPI <Ross Ruiz - Last Filed: 11/12/20 21:46> - General Source: patient Mode of arrival: ambulatory Limitations: no limitations - History of Present Illness MD Complaint: pelvic pain Onset/Timin -: days(s) Location: suprapubic, LLQ, RLQ Radiation: non-radiating Severity: moderate Quality: cramping Consistency: constant Improves with: none Worsens with: none Patient : No Associated Symptoms: denies other symptoms - Related Data Sexually active: Yes <Vladimir Diaz - Last Filed: 11/12/20 22:40> - General Chief complaint: Urogenital Stated complaint: Urogenital Time Seen by Provider: 11/12/20 20:52 - History of Present Illness Initial comments: This patient is a 35-year-old woman who presents here with pelvic cramping that has been going on over the course of the past 24 hours. The patient noticed that started on the day following the changing of her IUD, which was done by Dr. Brand in his clinic. Patient states that she has a routine follow-up scheduled for December 01. Patient denies vaginal discharge, fever or chills, change in urination or bowel movements. No new sexual partners. (Vladimir Diaz) - Related Data Home Medications Medication Instructions Recorded Confirmed Lurasidone [Latuda] 40 mg PO DAILY 01/23/14 07/29/20 Levothyroxine Sodium [Synthroid] 50 mcg PO DAILY 01/27/18 07/29/20 Albuterol Nebulized [Ventolin 2.5 mg INHALATION RT-BID PRN 07/29/20 07/29/20 Nebulized] Albuterol Sulfate [Proair Hfa] 2 puff INHALATION RT-Q4H PRN 07/29/20 07/29/20 Amoxicillin/Potassium Clav 1 tab PO Q12HR 07/29/20 07/29/20 [Augmentin 875-125 Tablet] Benzonatate [Tessalon Perles] 100 mg PO TID PRN 07/29/20 07/29/20 LORazepam [Ativan] 0.5 mg PO BID PRN 07/29/20 07/29/20 Mometasone Inhalr 220 Mcg/Puff 2 puff INHALATION RT-BID 07/29/20 07/29/20 [Asmanex] lamoTRIgine [LaMICtal] 200 mg PO BID 07/29/20 07/29/20 metFORMIN HCL [Glucophage] 500 mg PO DAILY 07/29/20 07/29/20 predniSONE [Deltasone] 20 mg PO DAILY 07/29/20 07/29/20 Allergies Allergy/AdvReac Type Severity Reaction Status Date / Time aspirin Allergy Unknown Verified 11/12/20 20:47 codeine Allergy Unknown Verified 11/12/20 20:47 Review of Systems ROS Other: All systems not noted in ROS Statement are negative. <Ross Ruiz - Last Filed: 11/12/20 21:46> ROS Other: All systems not noted in ROS Statement are negative. Constitutional: Denies: fever, chills Respiratory: Denies: cough, dyspnea Cardiovascular: Denies: chest pain, palpitations, edema Gastrointestinal: Reports: as per HPI, abdominal pain. Denies: nausea, vomiting, diarrhea, constipation Genitourinary: Denies: dysuria, frequency, hematuria, discharge, abnormal menses Musculoskeletal: Denies: back pain Skin: Denies: rash Neurological: Denies: headache <Vladimir Diaz - Last Filed: 11/12/20 22:40> ROS Statement: Those systems with pertinent positive or pertinent negative responses have been documented in the HPI. Past Medical History Past Medical History: Hypertension, Thyroid Disorder Additional Past Medical History / Comment(s): personality disorder, ptsd, gallstones. History of Any Multi-Drug Resistant Organisms: None Reported Past Surgical History: Cholecystectomy, Ear Surgery Additional Past Surgical History / Comment(s): left ear drum, bunionectomy bilateral feet, Past Psychological History: Anxiety, Bipolar, Depression Smoking Status: Current every day smoker Past Alcohol Use History: Rare Past Drug Use History: None Reported - Past Family History Mother Family Medical History: Cancer Additional Family Medical History / Comment(s): leukemia <Vladimir Diaz - Last Filed: 11/12/20 22:40> General Exam External exam: Present: normal external exam. Absent: erythema, swelling, lesions, lacerations, ecchymosis By manual exam: Present: other (Patient complains of pain at the introitus, no vesicles seen no erythema, no bruising.). Absent: cervical motion tenderness, adnexal tenderness, adnexal mass <Ross Ruiz - Last Filed: 11/12/20 21:46> Limitations: no limitations General appearance: alert, in no apparent distress Head exam: Present: atraumatic, normocephalic Eye exam: Present: normal appearance. Absent: scleral icterus, conjunctival injection Neck exam: Present: normal inspection Respiratory exam: Present: normal lung sounds bilaterally. Absent: respiratory distress, wheezes, rales, rhonchi, stridor Cardiovascular Exam: Present: regular rate, normal rhythm, normal heart sounds. Absent: systolic murmur, diastolic murmur, rubs, gallop GI/Abdominal exam: Present: soft. Absent: distended, tenderness, guarding, rebound, rigid, mass, pulsatile mass, hernia Extremities exam: Present: normal inspection, normal capillary refill. Absent: pedal edema, calf tenderness Neurological exam: Present: alert Skin exam: Present: warm, dry, intact, normal color. Absent: rash <Vladimir Diaz - Last Filed: 11/12/20 22:40> Course Vital Signs 11/12/20 20:44 Temperature 98.7 F Pulse Rate 100 Respiratory 19 Rate Blood Pressure 184/106 O2 Sat by Pulse 98 Oximetry Medical Decision Making - Lab Data Lab Results 11/12/20 11/12/20 Range/Units 21:23 21:23 Urine Color Yellow Urine Appearance Clear (Clear) Urine pH 6.0 (5.0-8.0) Ur Specific [place] 1.025 (1.001-1.035) Urine Protein Trace H (Negative) Urine Glucose (UA) Negative (Negative) Urine Ketones Negative (Negative) Urine Blood Trace H (Negative) Urine Nitrite Negative (Negative) Urine Bilirubin Negative (Negative) Urine Urobilinogen <2.0 (<2.0) mg/dL Ur Leukocyte Esterase Negative (Negative) Urine RBC 2 (0-5) /hpf Urine WBC 2 (0-5) /hpf Ur Squamous Epith Cells 1 (0-4) /hpf Urine Mucus Rare H (None) /hpf Urine HCG, Qual Not Detected (Not Detectd) Disposition <Ross Ruiz - Last Filed: 11/12/20 21:46> Is patient prescribed a controlled substance at d/c from ED?: No <Vladimir Diaz - Last Filed: 11/12/20 22:40> Clinical Impression: Pelvic pain, Hypertension Disposition: HOME SELF-CARE Condition: Fair Instructions (If sedation given, give patient instructions): Pelvic Pain in [place] (ED), Hypertension (ED) Additional Instructions: As we discussed, you must follow with Dr. Brand. He must recheck the IUD, possibly remove it. Referrals: Fabián Reynolds MD [Primary Care Provider] - 1-2 days Juan Brand DO [REFERRING] - 1-2 days
[2020-11-12 21:33] LABS: Appearance,Urine Clear (Clear); Bilirubin,Urine Negative (Negative); Blood,Urine Trace (Negative); Color,Urine Yellow; Glucose,Urine (UA) Negative (Negative); Ketones,Urine Negative (Negative); Leukocyte Esterase,Urine Negative (Negative); Mucus,Urine Rare /hpf; Nitrite,Urine Negative (Negative); Protein,Urine Trace (Negative); RBC,Urine 2 /hpf (0-5); Specific Gravity,Urine 1.025 (1.001-1.035); Squamous Epithelial Cell,Urine 1 /hpf (0-4); Urobilinogen,Urine <2.0 mg/dL (<2.0); WBC,Urine 2 /hpf (0-5)
[2020-11-12 22:53] VITALS: BP 168/95; PULSE 99; RESP 20
[2020-11-16 16:18] LABS: C. trachomatis,PCR Negative (Neg,Equiv); Chlamydia trachomatis Source Urine; N. gonorrhoeae,PCR Negative (Neg,Equiv); Neisseria Source Urine
== END 2020-11-12 22:53 | disposition home or self-care (01) ==
LOC: EC 20:37
DX: R10.2 Pelvic and perineal pain (principal); I10 Essential (primary) hypertension; E07.9 Disorder of thyroid, unspecified; F41.9 Anxiety disorder, unspecified; F31.9 Bipolar disorder, unspecified; F17.200 Nicotine dependence, unspecified, uncomplicated; Z79.84 Long term (current) use of oral hypoglycemic drugs; Z88.5 Allergy status to narcotic agent; Z90.49 Acquired absence of other specified parts of digestive tract
CPT/HCPCS: 81001; 81025; 87491; 87591; 99284

== ENCOUNTER → 2021-01-21 | Outpatient (CLI) | payer OTHER ==
--- NOTE | 2021-01-21 12:09 | XR ---
EXAMINATION TYPE: XR chest 2V DATE OF EXAM: 01/21/2021 COMPARISON: Chest x-ray July 29, 2020 HISTORY: Post COVID. TECHNIQUE: Frontal and lateral views of the chest are obtained. FINDINGS: There is no suspicious new focal air space opacity, pleural effusion, or pneumothorax seen . The cardiac silhouette size is stable and within normal limits. The osseous structures are intac t. IMPRESSION: No acute pulmonary process. No significant change from prior. Stability over a
== END | disposition home or self-care (01) ==
LOC: RADXRMAIN 11:07
PROVIDERS: ATTEND Family Medicine
DX: U07.1 COVID-19 (principal)
CPT/HCPCS: 71046

== ENCOUNTER → 2021-08-09 | Outpatient (CLI) | payer OTHER ==
--- NOTE | 2021-08-09 10:57 | XR ---
EXAMINATION TYPE: XR chest 2V DATE OF EXAM: 08/09/2021 COMPARISON: Chest x-ray January 21, 2021 HISTORY: Shortness of breath for 3 months. TECHNIQUE: Frontal and lateral views of the chest are obtained. FINDINGS: There is no focal air space opacity, pleural effusion, or pneumothorax seen. The cardiac silhouette size is within normal limits. Underlying scoliosis is redemonstrated. IMPRESSION: No acute process. No significant change from prior.
== END | disposition home or self-care (01) ==
LOC: RADXRMAIN 10:28
PROVIDERS: ATTEND Internal Medicine Sleep Medicine
DX: R06.02 Shortness of breath (principal)
CPT/HCPCS: 71046

== ENCOUNTER → 2022-11-03 | Outpatient (CLI) | payer OTHER ==
--- NOTE | 2022-11-03 14:12 | CT ---
EXAMINATION TYPE: CT cervical spine wo con CT DLP: 580 mGycm, Automated exposure control for dose reduction was used. DATE OF EXAM: 11/03/2022 2:01 PM COMPARISON: None. CLINICAL INDICATION:Female, 37 years old with history of M54.12 RADICULOPATHY, CERVICAL REGION; PHH, Radiculopathy, cervical region TECHNIQUE: Axial CT images from the skull base to the inferior aspect of T2 we obtained without intra venous contrast. Coronal and sagittal reformatted images were also reviewed. FINDINGS: Fracture: None. Osseous structures: Unremarkable Vertebral alignment: Slight reversal of the normal cervical lordosis. Spinal canal/Neural Foramina: No evidence of significant spinal canal narrowing. No evidence for sign ificant neural foraminal stenosis. Neck soft tissues: Prevertebral soft tissues are within normal limits. Other: The airway is patent. The lung apices are clear. IMPRESSION: 1. No evidence of cervical spine fracture. 2. No CT evidence for significant degenerative disease. If there is continued clinical concern, consi ramesh further evaluation with MRI cervical spine without IV contrast.
== END | disposition home or self-care (01) ==
LOC: RADCTMAIN 13:40
PROVIDERS: ATTEND Family Medicine
DX: M54.12 Radiculopathy, cervical region (principal); G43.009 Migraine without aura, not intractable, without status migrainosus
CPT/HCPCS: 72125

== ENCOUNTER → 2022-11-09 | Outpatient (CLI) | payer OTHER ==
[2022-11-09 09:58] VITALS: BP 121/98; PULSE 93; RESP 15; TEMP 98.3
--- NOTE | 2022-11-09 15:11 | P.PAINPG ---
PQRS Measure Charge Sheet Comment: HISTORY OF PRESENT ILLNESS: 37 yr old female w rolanda at side as a referral from Dr Elmore presents today w severe and chronic LBP x 1 yr secondary to DDD, spondylosis and facet arthropathy without myelopathy for evaluation. Pt states pain level is provoked at 7 /10 in intensity, constant, localized in the local lumbar spine, sharp in character w shooting pain towards the BLEs. Pain is provoked by lifting, bending, twisting. Pain initially provoked when she was "lifting a patient." Pain is alleviated by PT x 5 wks which she is currently in, heat, ice, medications (Ibu, Neurontin, Voltaren gel), repositioning and rest . Oswestry axial pain score at 24. PMH: OA, HTN, Hypopthyroid Disorder, PTSD/ Anxiety/ Bipolar Disorder, Cholecystitis PSH: Cholecystectomy, L Ear Surgery, BL Bunionectomy SH: Daily tobacco use, Rare ETOH use, No illicit drug use. Works as a [employer]. FH: Mo- Leukemia All: See list Meds: See list REVIEW OF ORGAN SYSTEMS: CONSTITUTIONAL: No fevers or chills. No recent weight loss. NEUROLOGICAL: + numbness and tingling along the distal ext remities. No seizure disorders or headaches. MUSCULOSKELETAL: + pain PSYCHIATRIC: Denies current depression or suicidal thoughts. Physical Examinations : Constitutional : Cooperative , not in acute distress . Neurologic : Cranial nerve II to XII intact. No focal neurological deficits. Psychiatric : alert & oriented x 3. Matching mood & appropriate affect. Judgment & insight intact. Musculoskeletal : Cervical Spine Motor strength in the deltoid and biceps: Normal right side. Normal Left side Motor strength biceps and the wrist extensors: Normal right side . Normal left side Motor strength in the triceps muscle: Normal right side. Normal left side Deep tendon reflexes: Normal at the biceps. Normal at Brachioradialis. Normal at triceps Vertebral body tenderness to deep palpation over Cervical facet loading test: positive bilaterally Spurling test: positive bilaterally Neck distraction test: positive bilaterally Doc sign: positive bilaterally Lumbar spine Motor strength lower extremities ,thigh and legs 5/5 Right side , 5/5 Left side Deep tendon reflexes : Normal Knee Jerk. Normal Ankle Jerk Vertebral body tenderness over L5 Mcbride Test positive over BL L5-S1 Lumbar facet Loading Test: positive Right / positive Left Range of motion of the lumbar spine Flexion 30 degrees, extension 10 degrees Straight Leg Raise test: Left/ Right positive at degree Lo test: positive right / positive left. Severe tenderness over the Sacroiliac joint on the Right / Left sides Gaenslen test: positive bilaterally Seated flexion test: positive bilat erally. Sacral spine : Severe tenderness over the Sacroiliac joint: right side / left side Range of motion: Flexion of the lumbar spine <60 degrees Range of motion: Extension of the lumbar spine <20 degrees Gaenslen's Test positive Gustavo's Test positive Lo test: positive right side / left side Thigh Thrust Test Sacral Thrust Test Imaging: CT noncontrast of the lumbar spine from 10/06/22 reviewed Assessment/ Plan : Lumbar DDD Recommendation of JOSE ELIAS L5-S1 #1. May need a series of injections for optimal pain relief. Risks, benefits of procedure discussed and patient verbalized understanding. Admits to aspirin or anti- coagulant use or medical history of diabetes. Protocol for discontinuation/ continuation of medications celine procedure discussed. Minimal anesthesia provided, if clinically indicated, consisting of Versed and Fentanyl. All questions answered. I have spent greater than 30 minutes on patient care today. Dr Rivera was available by phone for the evaluation of this patient. The time was used to review the medical records including relevant urine studies and Prescription history (MAPs), review of the available imaging, evaluation and examination of the patient, coordination of care with the medical staff and if applicable referring physicians, as well as creation of the medical record PQRS Narrative: Smoking Status Current every day smoker Home Medications: Ambulatory Orders Lurasidone [Latuda] 40 mg PO DAILY 01/23/14 Levothyroxine Sodium [Synthroid] 50 mcg PO DAILY 01/27/18 Albuterol Nebulized [Ventolin Nebulized] 2.5 mg INHALATION RT-BID PRN 07/29/20 Albuterol Sulfate [Proair Hfa] 2 puff INHALATION RT-Q4H PRN 07/29/20 Amoxicillin/Potassium Clav [Augmentin 875-125 Tablet] 1 tab PO Q12HR 07/29/20 Benzonatate [Tessalon Perles] 100 mg PO TID PRN 07/29/20 LORazepam [Ativan] 0.5 mg PO BID PRN 07/29/20 Mometasone Inhalr 220 Mcg/Puff [Asmanex] 2 puff INHALATION RT-BID 07/29/20 lamoTRIgine [LaMICtal] 200 mg PO BID 07/29/20 metFORMIN HCL [Glucophage] 500 mg PO DAILY 07/29/20 predniSONE [Deltasone] 20 mg PO DAILY 07/29/20 Controlled Substance Measures - Controlled Substance Measures Is patient prescribed a controlled substance at discharge?: No
== END ==
LOC: PNWHC3 09:08
PROVIDERS: ATTEND Specialist
DX: M51.17 Intervertebral disc disorders with radiculopathy, lumbosacral region (principal); M47.817 Spondylosis without myelopathy or radiculopathy, lumbosacral region; I10 Essential (primary) hypertension; M19.90 Unspecified osteoarthritis, unspecified site; E03.9 Hypothyroidism, unspecified; F43.10 Post-traumatic stress disorder, unspecified; F41.9 Anxiety disorder, unspecified; F31.9 Bipolar disorder, unspecified; F17.200 Nicotine dependence, unspecified, uncomplicated; Z79.01 Long term (current) use of anticoagulants; Z79.890 Hormone replacement therapy; Z88.6 Allergy status to analgesic agent; Z88.5 Allergy status to narcotic agent
CPT/HCPCS: 99211

== ENCOUNTER 2022-11-29 08:25 | Day surgery (SDC) | payer OTHER ==
[2022-11-28 12:26] VITALS: BMI 41.2
[2022-11-29 08:52] VITALS: TEMP 97.2
[2022-11-29] MEDS ORDERED: LACTATED RINGERS 1,000 ML IV SCH (08:52)
[2022-11-29 08:59] LABS: Glucose,Whole Blood 120 mg/dL (70-110)
[2022-11-29] MEDS ORDERED: IOPAMIDOL M200 10 ML VIAL ONE (09:30)
[2022-11-29] MEDS ORDERED: methylPREDNISolone ACETATE 40 MG/ML 1 ML VIAL ONE (09:30)
--- NOTE | 2022-11-29 09:38 | P.PCN ---
Date of Procedure: 11/29/22 Procedure(s) Performed: PREOPERATIVE DIAGNOSIS: 1- Lumbar Degenerative Disc Diseases 2-Lumbar spondylosis with Facet arthropathy without myelopathy. POSTOPERATIVE DIAGNOSIS: 1-lumbar degenerative disc disease. 2-lumbar spondylosis with facet arthropathy without myelopathy. PROCEDURE 1. Lumbar epidural steroid injection under fluoroscopic guidance at the L5-S1 level. (Fluoroscopy imaging was available in radiology department) 2. Lumbar epidurogram. ANESTHESIA: Lidocaine 1% 3 and then only. EBL: Minimal PROCEDURE INDICATION: The patient with low back pain and radiculitis symptoms unresponsive to conservative treatment. Fluoroscopy was used to optimize visualization of the needle placement and to maximize safety. PROCEDURE DESCRIPTION / TECHNIQUE: The patient was seen and identified in the preoperative area. Risks, benefits, complications including but not limited to infections ,bleeding ,allergic reaction to the medications ,nerve damage and not complete pain releife , and alternatives were discussed with the patient. The patient agreed to proceed with the procedure and signed the consent, and vital signs were stable. Patient was taken to the OR and time out was completed. The patient was placed in the prone position on procedure table and a pillow was placed under the abdomen to reduce lumbar lordosis. The lumbosacral area was prepped and draped in the usual sterile fashion.ere closely monitored during the procedure. Vital signs was monitered during the entire procedure. Using anterior-posterior fluoroscopy, the L5-S1 interlaminar space was identified and the skin over this site was marked and then infiltrated with 1% lidocaine subcutaneously. Subsequently, a 18-gauge 6 inches long Tuohy epidural needle was inserted and advanced toward the epidural space using the ``Loss of resistance technique and guided by AP and lateral fluoroscopy. The correct needle position in the epidural space was verified with the injection of 2 mL of the water soluble contrast dye Isovue 200 contrast and observing an excellent epidurogram with the epidural spread of the dye, after negative aspiration for blood and CSF and in the absence of paresthesias. Again after negative aspiration, a 6 ml mixture containing 40 mg of Depo-medrol ( Preservetive Free ), and 2 ml of preservative free Normal Saline, and 2 ml of preservative free lidocaine 1% solution was injected and a washout of epidurogram was seen. Needle was withdrawn intact, skin was cleansed, and bandages were applied. COMPLICATIONS: None DISPOSITION / PLANS: The patient was placed in a supine position and transferred to the recovery area in a stable condition for observation. There was no evidence of lower extremity motor or sensory deficit after the procedure. Patient was discharged from the recovery room after meeting discharge criteria. Home discharge instructions were given to the patient by the staff. The patient was reexamined prior to discharge. The patient will schedule a follow up in the clinic in 2-4 weeks.
[2022-11-29 10:05] VITALS: BP 137/78; PULSE 78; RESP 18
--- NOTE | 2022-11-29 20:38 | FL ---
Intraoperative/procedural fluoroscopic services were provided. Total fluoroscopy time is 5 seconds wi th a total of 1 submitted images to PACS. Please see the operative/procedural note for further detail s. DAP: [id number] mGym2
== END 2022-11-29 10:06 | disposition home or self-care (01) ==
LOC: ORPAIN 08:25
PROVIDERS: ATTEND Specialist
DX: M51.16 Intervertebral disc disorders with radiculopathy, lumbar region (principal); M47.26 Other spondylosis with radiculopathy, lumbar region; E11.9 Type 2 diabetes mellitus without complications; Z88.0 Allergy status to penicillin; Z88.5 Allergy status to narcotic agent; Z79.1 Long term (current) use of non-steroidal anti-inflammatories (NSAID)
CPT/HCPCS: 81025; 62323; J1030; Q9966

== ENCOUNTER → 2022-12-21 | Outpatient (CLI) | payer OTHER ==
[2022-12-21 09:35] VITALS: BP 124/92; PULSE 83; RESP 16; TEMP 98.8
--- NOTE | 2022-12-21 14:40 | P.PAINPG ---
PQRS Measure Charge Sheet Comment: HISTORY OF PRESENT ILLNESS: 37 yr old female w rolanda at side presents today w severe and chronic LBP x 1 yr secondary to DDD, spondylosis and facet arthropathy without myelopathy for evaluation s/p JOSE ELIAS L5-S1 #1. Pt states she experienced 100% pain relief x 1 wks s/p procedure. Pt states pain level is provoked at 8 /10 in intensity, constant, localized in the local lumbar spine, sharp in character w shooting pain towards the buttocks and BLEs. Pain is provoked by lifting, bending, twisting. 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 Oswestry axial pain score at 34. Interventional procedures include JOSE ELIAS L5-S1 1 Medications include Tramadol, Neurontin, Ibu, Voltaren gel REVIEW OF ORGAN SYSTEMS: CONSTITUTIONAL: No fevers or chills. No recent weight loss. NEUROLOGICAL: + numbness and tingling along the distal extremities. No seizure disorders or headaches. MUSCULOSKELETAL: + pain PSYCHIATRIC: Denies current depression or suicidal thoughts. Physical Examinations : Constitutional : Cooperative , not in acute distress . Neurologic : Cranial nerve II to XII intact. No focal neurological deficits. Psychiatric : alert & oriented x 3. Matching mood & appropriate affect. Judgment & insight intact. Musculoskeletal : Cervical Spine Motor strength in the deltoid and biceps: Normal right side. Normal Left side Motor strength biceps and the wrist extensors: Normal right side . Normal left side Motor strength in the triceps muscle: Normal right side. Normal left side Deep tendon reflexes: Normal at the biceps. Normal at Brachioradialis. Normal at triceps Vertebral body tenderness to deep palpation over Cervical facet loading test: positive bilaterally Spurling test: positive bilaterally Neck distraction test: positive bilaterally Doc sign: positive bilaterally Lumbar spine Motor strength lower extremities ,thigh and legs 5/5 Right side , 5/5 Left side Deep tendon reflexes : Normal Knee Jerk. Normal Ankle Jerk Vertebral body tenderness Mcbride Test positive Lumbar facet Loading Test: positive Right / positive Left over L4-L5, L5-S1 Range of motion of the lumbar spine Flexion 30 degrees, extension 10 degrees Straight Leg Raise test: Left/ Right positive at degree Lo test: positive right / positive left. Severe tenderness over the Sacroiliac joint on the Right / Left sides Gaenslen test: positive bilaterally Seated flexion test: positive bilaterally. Sacral spine : Severe tenderness over the Sacroiliac joint: right side / left side Range of motion: Flexion of the lumbar spine <60 degrees Range of motion: Extension of the lumbar spine <20 degrees Gaenslen's Test positive Gustavo's Test positive Lo test: positive right side / left side Thigh Thrust Test Sacral Thrust Test Imaging: CT noncontrast of the lumbar spine from 10/06/22 reviewed Assessment/ Plan : Lumbar DDD Recommendation of BL MBB L4-L5, L5-S1 #1. May need a series of injections, up until RFA, for optimal pain relief. Risks, benefits of procedure discussed and patient verbalized understanding. Admits to aspirin or anti- coagulant use or medical history of diabetes. Protocol for discontinuation/ continuation of medications celine procedure discussed. Minimal anesthesia provided, if clinically indicated, consisting of Versed and Fentanyl. All questions answered. I have spent greater than 30 minutes on patient care today. Dr Rivera was available by phone for the evaluation of this patient. The time was used to review the medical records including relevant urine studies and Prescription history (MAPs), review of the available imaging, evaluation and examination of the patient, coordination of care with the medical staff and if applicable referring physicians, as well as creation of the medical record PQRS Narrative: Smoking Status Current every day smoker Hx Alcohol Use (MH) No Home Medications: Ambulatory Orders Lurasidone [Latuda] 40 mg PO DAILY 01/23/14 Levothyroxine Sodium [Synthroid] 50 mcg PO DAILY 01/27/18 Albuterol Nebulized [Ventolin Nebulized] 2.5 mg INHALATION RT-BID PRN 07/29/20 Albuterol Sulfate [Proair Hfa] 2 puff INHALATION RT-Q4H PRN 07/29/20 Benzonatate [Tessalon Perles] 100 mg PO TID PRN 07/29/20 LORazepam [Ativan] 0.5 mg PO BID PRN 07/29/20 Mometasone Inhalr 220 Mcg/Puff [Asmanex] 2 puff INHALATION RT-BID 07/29/20 lamoTRIgine [LaMICtal] 200 mg PO BID 07/29/20 metFORMIN HCL [Glucophage] 500 mg PO DAILY 07/29/20 DULoxetine HCL [Cymbalta] 30 mg PO DAILY 11/28/22 Furosemide [Lasix] 40 mg PO DAILY 11/28/22 Metoprolol Tartrate [Lopressor] 50 mg PO BID 11/28/22 Montelukast [Singulair] 10 mg PO DAILY 11/28/22 Omeprazole 40 mg PO DAILY 11/28/22 Controlled Substance Measures - Controlled Substance Measures Is patient prescribed a controlled substance at discharge?: No
== END ==
LOC: PNWHC3 08:58
PROVIDERS: ATTEND Specialist
DX: M51.37 Other intervertebral disc degeneration, lumbosacral region (principal); F17.200 Nicotine dependence, unspecified, uncomplicated; Z88.6 Allergy status to analgesic agent; Z88.5 Allergy status to narcotic agent
CPT/HCPCS: 99211

== ENCOUNTER 2023-01-05 07:40 | Day surgery (SDC) | payer OTHER ==
[2023-01-05] MEDS ORDERED: LACTATED RINGERS 1,000 ML IV SCH (07:53)
[2023-01-05] MEDS ORDERED: LIDOCAINE 1% (10MG/ML) FOR IV START INTRADERMA ONE (08:10)
[2023-01-05 08:19] VITALS: RESP 16; TEMP 98.2
[2023-01-05 08:24] LABS: Glucose,Whole Blood 128 mg/dL (70-110)
[2023-01-05] MEDS ORDERED: fentaNYL (PF) 50 MCG/ML 2 ML AMP ONE (08:34)
[2023-01-05] MEDS ORDERED: MIDAZOLAM 2 MG/2 ML VIAL ONE (08:34)
[2023-01-05] MEDS ORDERED: ROPIVACAINE 5MG/ML 20ML VIAL ONE (08:34)
[2023-01-05] MEDS ORDERED: methylPREDNISolone ACETATE 40 MG/ML 1 ML VIAL ONE (08:34)
--- NOTE | 2023-01-05 08:51 | P.PCN ---
Date of Procedure: 01/05/23 Procedure(s) Performed: PREOPERATIVE DIAGNOSIS : 1- Lumbar spondylosis with Facet Arthropathy without myelopathy . 2- Lumber degenerative disc disease POSTOPERATIVE DIAGNOSIS: 1- Lumbar spondylosis with Facet Arthropathy without myelopathy . 2- Lumber degenerative disc disease PROCEDURE: Diagnostic bilateral L3 , L4 , and L5 medial branch block under fluoroscopy guidance(fluoroscopy images available in the radiology Department ) ( To target the facet joint between Bilateral L4-5 , and L5-S1 )#1st ANESTHESIA:, moderate sedation with intravenous Versed 2 mg and Fentanyl 100 mcg. ( sedation start time 08:34 , end time 08:47 ) EBL: Minimal COMPLICATION: None PROCEDURE INDICATION: Chronic low back pain secondary to Facet arthropathy unresponsive to conservative treatment. PROCEDURE DESCRIPTION: the patient was seen and identified in the preop holding area , risks and benefits and possible complications of the procedure and alternative were discussed with the patient, and the patient agreed to proceed with the procedure and signed the consent and vital signs monitored during the procedure and fluoroscopy was used to maximize the benefit and accuracy of the needle placement, and sedation was given to decrease patient anxiety, patient was taken to the procedure room and placed in prone position vital signs monitored in the back prepped with chlorhexidine X3 then under strict sterile technique using a right oblique fluoroscopy ,the junction of the transverse process and the superior articulating process of the right L3 , L4 , and L5 vertebra which corresponding to the fluoroscopy image of the eye of the Arsen dog on the block side for the medial branches and subsequently , after local infiltration of skin and subcu tissuies with Ropivacaine 0.5 % , one mL at each level ,then 22-gauge 5 inches long Quincke-type needles , 3 needle was used , each one of them placed at the junction of the base of the transverse process and the superior articular process at the appropriate level, and the needle was advanced until the periosteum contacted, needle placement confirmed with AP oblique and lateral view and after appropriate needle placement confirmed, and after negative aspiration for heme and CSF and there was no paresthesia 1-1/2 mL of Ropivacaine 0.5% mixed with 20 mg Depo-Medrol , then half mL injected at each level after negative aspiration the needle subsequently removed and the same procedure repeated for the left side at left side at L3 , L4 and L5 levels. At the end of the procedure and the needles removed and a bandage applied after the skin was cleaned the cleaning solution patient taken to recovery room in stable condition and monitors in the recovery room for 20-30 minutes and discharged home in stable condition after discharge criteria met and patient will follow up with the pain clinic in 2-4 weeks
[2023-01-05] MEDS ORDERED: IV FLUID CONTINUATION 1,000 ML IV ONE (08:53)
[2023-01-05 08:57] VITALS: PULSE 77
--- NOTE | 2023-01-05 09:10 | FL ---
Intraoperative/procedural fluoroscopic services were provided. Total fluoroscopy time is 13.4 seconds with a total of 4 submitted images to PACS. Please see the operative/procedural note for further det ails. DAP: [id number] mGym2
[2023-01-05 09:54] VITALS: BP 122/81
== END 2023-01-05 09:50 | disposition home or self-care (01) ==
LOC: ORPAIN 07:40
PROVIDERS: ATTEND Specialist
DX: M51.36 Other intervertebral disc degeneration, lumbar region (principal); M47.816 Spondylosis without myelopathy or radiculopathy, lumbar region; G89.29 Other chronic pain; Z88.5 Allergy status to narcotic agent; Z79.82 Long term (current) use of aspirin
CPT/HCPCS: 64494 ×2; 81025; 64493; J2250; J1030; J3010; J2795; 99152

== ENCOUNTER → 2023-01-26 | Outpatient (CLI) | payer OTHER ==
[2023-01-26 09:45] VITALS: BP 132/96; PULSE 103; RESP 16; TEMP 98.1
--- NOTE | 2023-01-26 14:57 | P.PAINPG ---
PQRS Measure Charge Sheet Comment: HISTORY OF PRESENT ILLNESS: 37 yr old female w rolanda at side presents today w severe and chronic LBP x 1 yr secondary to DDD, spondylosis and facet arthropathy without myelopathy for evaluation s/p BL MBB L4-L5, L5-S1 #1. Pt states she experienced 60% pain relief x 1 day s/p procedure. Pt states pain level is provoked at 6 /10 in intensity, constant, localized in the local lumbar spine, sharp in character w shooting pain towards the buttocks and BLEs. Pain is provoked by lifting, bending, twisting. 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 Oswestry axial pain score at 32. Interventional procedures include JOSE ELIAS L5-S1 1, BL MBB L3-L5 x1 Medications include Tramadol, Neurontin, Ibu, Voltaren gel REVIEW OF ORGAN SYSTEMS: CONSTITUTIONAL: No fevers or chills. No recent weight loss. NEUROLOGICAL: + numbness and tingling along the distal extremities. No seizure disorders or headaches. MUSCULOSKELETAL: + pain PSYCHIATRIC: Denies current depression or suicidal thoughts. Physical Examinations : Constitutional : Cooperative , not in acute distress . Neurologic : Cranial nerve II to XII intact. No focal neurological deficits. Psychiatric : alert & oriented x 3. Matching mood & appropriate affect. Judgment & insight intact. Musculoskeletal : Cervical Spine Motor strength in the deltoid and biceps: Normal right side. Normal Left side Motor strength biceps and the wrist extensors: Normal right side . Normal left side Motor strength in the triceps muscle: Normal right side. Normal left side Deep tendon reflexes: Normal at the biceps. Normal at Brachioradialis. Normal at triceps Vertebral body tenderness to deep palpation over Cervical facet loading test: positive bilaterally Spurling test: positive bilaterally Neck distraction test: positive bilaterally Doc sign: positive bilaterally Lumbar spine Motor strength lower extremities ,thigh and legs 5/5 Right side , 5/5 Left side Deep tendon reflexes : Normal Knee Jerk. Normal Ankle Jerk Vertebral body tenderness Mcbride Test positive Lumbar facet Loading Test: positive Right / positive Left over L4-L5, L5-S1 Range of motion of the lumbar spine Flexion 30 degrees, extension 10 degrees Straight Leg Raise test: Left/ Right positive at degree Lo test: positive right / positive left. Severe tenderness over the Sacroiliac joint on the Right / Left sides Gaenslen test: positive bilaterally Seated flexion test: positive bilaterally. Sacral spine : Severe tenderness over the Sacroiliac joint: right side / left side Range of motion: Flexion of the lumbar spine <60 degrees Range of motion: Extension of the lumbar spine <20 degrees Gaenslen's Test positive Gustavo's Test positive Lo test: positive right side / left side Thigh Thrust Test Sacral Thrust Test Imaging: CT noncontrast of the lumbar spine from 10/06/22 reviewed Assessment/ Plan : Lumbar DDD Recommendation of home TENS unit use. Discussed and form faxed. Referral to Dr Hobbs to explore additional treatment options. All questions answered. I have spent greater than 30 minutes on patient care today. Dr Rivera was available by phone for the evaluation of this patient. The time was used to review the medical records including relevant urine studies and Prescription history (MAPs), review of the available imaging, evaluation and examination of the patient, coordination of care with the medical staff and if applicable referring physicians, as well as creation of the medical record PQRS Narrative: Smoking Status Current every day smoker Hx Alcohol Use (MH) No Home Medications: Ambulatory Orders Lurasidone [Latuda] 80 mg PO DAILY 01/23/14 Levothyroxine Sodium [Synthroid] 125 mcg PO DAILY 01/27/18 Albuterol Nebulized [Ventolin Nebulized] 2.5 mg INHALATION RT-BID PRN 07/29/20 Albuterol Sulfate [Proair Hfa] 2 puff INHALATION RT-Q4H PRN 07/29/20 Benzonatate [Tessalon Perles] 100 mg PO TID PRN 07/29/20 LORazepam [Ativan] 0.5 mg PO BID PRN 07/29/20 Mometasone Inhalr 220 Mcg/Puff [Asmanex] 2 puff INHALATION RT-BID 07/29/20 metFORMIN HCL [Glucophage] 500 mg PO DAILY 07/29/20 DULoxetine HCL [Cymbalta] 30 mg PO DAILY 11/28/22 Furosemide [Lasix] 40 mg PO DAILY 11/28/22 Metoprolol Tartrate [Lopressor] 50 mg PO BID 11/28/22 Montelukast [Singulair] 10 mg PO DAILY 11/28/22 Omeprazole 40 mg PO DAILY 11/28/22 Orphenadrine Citrate [Orphenadrine Citrate ER] 100 mg PO BID PRN 01/02/23 traMADol HCL 50 mg PO Q12H 01/02/23 Controlled Substance Measures - Controlled Substance Measures Is patient prescribed a controlled substance at discharge?: No
== END ==
LOC: PNWHC3 08:58
PROVIDERS: ATTEND Specialist
DX: M51.37 Other intervertebral disc degeneration, lumbosacral region (principal); F17.200 Nicotine dependence, unspecified, uncomplicated; Z88.5 Allergy status to narcotic agent; Z88.6 Allergy status to analgesic agent
CPT/HCPCS: 99211

== ENCOUNTER → 2023-06-07 | Outpatient (CLI) | payer OTHER ==
--- NOTE | 2023-06-07 09:26 | MR ---
EXAMINATION TYPE: MR lumbar spine wo con DATE OF EXAM: 06/07/2023 COMPARISON: None HISTORY: 38-year-old female M54.5, Low back pain into left side, Hx of epidural injection for pain TECHNIQUE: Multiplanar, multisequence images of the lumbar spine were acquired without IV contrast. FINDINGS: Vertebral body heights are preserved and alignment is maintained. Mild intervertebral disc desiccation L2-S1 levels. Mild disc space narrowing at L5-S1. Mild bulging d iscs are present along these levels though greatest at L5-S1 where a posterior annular fissure is als o demonstrated. Tiny posterior fissure also at L4-L5. Conus medullaris is normal. There is a mild congenital spinal canal narrowing mid and lower lumbar spine with AP canal dimension of 1.2 cm. Some further thecal sac narrowing from prominent dorsal epidural fat. No suspicious bone marrow replacement. From T12 through L3 levels, no significant spinal canal or neuroforaminal stenosis. At L3-L4, minimal bulging discs with mild congenital canal narrowing and prominent dorsal epidural fa t. Mild circumferential narrowing of the thecal sac. There is mild right neuroforaminal stenosis with a right intraforaminal annular fissure noted. At L4-L5, mild bulging disc with some prominent dorsal epidural fat. Mild facet degenerative change. Changes result in mild bilateral neural foraminal stenosis and mild circumferential narrowing of the thecal sac without significant spinal canal stenosis. At L5-S1, diffuse disc bulge with a superimposed right paracentral and right intraforaminal. This con tributes to [id number] right neural foraminal stenosis. Mild left neuroforaminal stenosis. Impr ession on the ventral thecal sac without significant spinal canal stenosis. No prevertebral or paravertebral soft tissue abnormality seen. IMPRESSION: 1. Mild degenerative disc disease mid to lower lumbar spine superimposed on a mild congenital spinal canal narrowing ([place] AP canal dimension of 1.2 cm). Additional prominent dorsal epidural fat. Thes e changes slightly accentuate the mild canal narrowing but do not cause any significant spinal canal stenosis. 2. Posterior annular fissures at both L4-L5 and L5-S1. 3. At L3-L4, the bulging disc contributes to mild right neural foraminal stenosis and also shows an i ntraforaminal annular fissure. 4. A mild broad-based disc bulge towards the right at L5-S1 contributes to [id number] right jaspal roforaminal stenosis. 5. At L4-L5, mild facet arthropathy contributes to mild bilateral neural foraminal stenosis.
== END | disposition home or self-care (01) ==
LOC: RADMRIMAIN 07:56
PROVIDERS: ATTEND Orthopaedic Surgery
DX: M51.36 Other intervertebral disc degeneration, lumbar region (principal); M99.73 Connective tissue and disc stenosis of intervertebral foramina of lumbar region; M47.816 Spondylosis without myelopathy or radiculopathy, lumbar region; M51.37 Other intervertebral disc degeneration, lumbosacral region
CPT/HCPCS: 72148

== ENCOUNTER → 2023-09-06 | Outpatient (CLI) | payer OTHER ==
[2023-09-06 09:35] VITALS: BP 118/84; PULSE 78; RESP 16
--- NOTE | 2023-09-06 14:47 | P.PAINPG ---
PQRS Measure Charge Sheet Comment: HISTORY OF PRESENT ILLNESS: A 38 yr old female w fiance at side presents today w severe and chronic LBP x 1 yr secondary to DDD, spondylosis and facet arthropathy without myelopathy for evaluation. Pt states pain level is provoked at 6 /10 in intensity, constant, localized in the local lumbar spine, sharp in character w shooting pain towards the buttocks and BLEs. Pain is provoked by lifting, bending, twisting. Pain is alleviated by TENS unit use at home, PT x 6 wks in Sep- Oct 2022, physician guided exercises 4 times weekly since Oct 2022, heat, ice, medications, repositioning and rest . Oswestry axial pain score at 32. Interventional procedures include JOSE ELIAS L5-S1 1, BL MBB L3-L5 x1 Medications include Tramadol, Neurontin, Ibu, Voltaren gel, CBD Oil REVIEW OF ORGAN SYSTEMS: CONSTITUTIONAL: No fevers or chills. No recent weight loss. NEUROLOGICAL: + numbness and tingling along the distal extremities. No seizure disorders or headaches. MUSCULOSKELETAL: + pain PSYCHIATRIC: Denies current depression or suicidal thoughts. Physical Examinations : Constitutional : Cooperative , not in acute distress . Neurologic : Cranial nerve II to XII intact. No focal neurological deficits. Psychiatric : alert & oriented x 3. Matching mood & appropriate affect. Judgment & insight intact. Musculoskeletal : Cervical Spine Motor strength in the deltoid and biceps: Normal right side. Normal Left side Motor strength biceps and the wrist extensors: Normal right side . Normal left side Motor strength in the triceps muscle: Normal right side. Normal left side Deep tendon reflexes: Normal at the biceps. Normal at Brachioradialis. Normal at triceps Vertebral body tenderness to deep palpation over Cervical facet loading test: positive bilaterally Spurling test: positive bilaterally Neck distraction test: positive bilaterally Doc sign: positive bilaterally Lumbar spine Motor strength lower extremities ,thigh and legs 5/5 Right side , 5/5 Left side Deep tendon reflexes : Normal Knee Jerk. Normal Ankle Jerk Vertebral body tenderness Mcbride Test positive Lumbar facet Loading Test: positive Right / positive Left over L4-L5, L5-S1 Range of motion of the lumbar spine Flexion 30 degrees, extension 10 degrees Straight Leg Raise test: Left/ Right positive at degree Lo test: positive right / positive left. Severe tenderness over the Sacroiliac joint on the Right / Left sides Gaenslen test: positive bilaterally Seated flexion test: positive bilaterally. Sacral spine : Severe tenderness over the Sacroiliac joint: right side / left side Range of motion: Flexion of the lumbar spine <60 degrees Range of motion: Extension of the lumbar spine <20 degrees Gaenslen's Test positive L > R Lo test: positive right side< left side Thigh Thrust Test BL positive Sacral Thrust Test Imaging: CT noncontrast of the lumbar spine from 10/06/22 reviewed Assessment/ Plan : Lumbar DDD Recommendation of BL SI injection #1. May need a series of injections for optimal pain relief. Risks, benefits of procedure discussed and pt verbalized understanding. Protocol for discontinuation/ continuation of medications celine procedure discussed. All questions answered. I have spent greater than 30 minutes on patient care today. Dr Rivera was available by phone for the evaluation of this patient. The time was used to review the medical records including relevant urine studies and Prescription history (MAPs), review of the available imaging, evaluation and examination of the patient, coordination of care with the medical staff and if applicable referring physicians, as well as creation of the medical record PQRS Narrative: Smoking Status Current every day smoker Hx Alcohol Use (MH) No Home Medications: Ambulatory Orders Lurasidone [Latuda] 80 mg PO DAILY 01/23/14 Levothyroxine Sodium [Synthroid] 125 mcg PO DAILY 01/27/18 Albuterol Nebulized [Ventolin Nebulized] 2.5 mg INHALATION RT-BID PRN 07/29/20 Albuterol Sulfate [Proair Hfa] 2 puff INHALATION RT-Q4H PRN 07/29/20 Benzonatate [Tessalon Perles] 100 mg PO TID PRN 07/29/20 LORazepam [Ativan] 0.5 mg PO BID PRN 07/29/20 Mometasone Inhalr 220 Mcg/Puff [Asmanex] 2 puff INHALATION RT-BID 07/29/20 metFORMIN HCL [Glucophage] 500 mg PO DAILY 07/29/20 DULoxetine HCL [Cymbalta] 30 mg PO DAILY 11/28/22 Furosemide [Lasix] 40 mg PO DAILY 11/28/22 Metoprolol Tartrate [Lopressor] 50 mg PO BID 11/28/22 Montelukast [Singulair] 10 mg PO DAILY 11/28/22 Omeprazole 40 mg PO DAILY 11/28/22 Orphenadrine Citrate [Orphenadrine Citrate ER] 100 mg PO BID PRN 01/02/23 traMADol HCL 50 mg PO Q12H 01/02/23 Controlled Substance Measures - Controlled Substance Measures Is patient prescribed a controlled substance at discharge?: No
== END ==
LOC: PNWHC3 09:07
PROVIDERS: ATTEND Specialist
DX: M46.1 Sacroiliitis, not elsewhere classified (principal); M51.36 Other intervertebral disc degeneration, lumbar region; M48.061 Spinal stenosis, lumbar region without neurogenic claudication; M47.816 Spondylosis without myelopathy or radiculopathy, lumbar region; F17.200 Nicotine dependence, unspecified, uncomplicated; Z88.6 Allergy status to analgesic agent; Z88.5 Allergy status to narcotic agent
CPT/HCPCS: 99211

== ENCOUNTER 2023-10-06 10:42 | Day surgery (SDC) | payer OTHER ==
[2023-10-04 14:52] VITALS: BMI 38.6
[~2023-10-06 10:42] MED LIST: LACTATED RINGERS 1,000 ML IV SCH
[2023-10-06 11:07] VITALS: TEMP 97.3
[2023-10-06 11:10] LABS: Glucose,Whole Blood 120 mg/dL (70-110)
[2023-10-06] MEDS ORDERED: IOPAMIDOL M200 10 ML VIAL ONE (11:24)
[2023-10-06] MEDS ORDERED: TRIAMCINOLONE ACETONIDE 40 MG/ML 1 ML VIAL ONE (11:24)
--- NOTE | 2023-10-06 11:32 | P.PCN ---
Date of Procedure: 10/06/23 Description of Procedure: PREOPERATIVE DIAGNOSIS: Sacroiliac joint dysfunction POSTOPERATIVE DIAGNOSIS: Sacroiliac joint dysfunction. PROCEDURES: 1.bilateral Sacroiliac joint steroid injection 2. Sacroiliac joint arthrogram. SURGEON: Raúl Henriquez ANESTHESIA: Local and IV sedation : none EBL: None. Specimen removed: None Fluoroscopic image: saved to electronic medical records. PROCEDURE INDICATIONS: This patient with a history of chronic low back pain, and sacroiliac joint dysfunction. Patient tried conservative therapy. Came here for intervention management. PROCEDURE DESCRIPTION: The patient was seen and identified in the preoperative area. Risks, benefits, complications, and alternatives were discussed with the patient. The patient agreed to proceed with the procedure and signed the consent. IV was started, and vital signs were stable. Patient was taken to the OR and time out was completed. The patient was placed in the prone position on procedure table and a pillow was placed under the abdomen to reduce lumbar lordosis. The lumbosacral area was prepped and draped in the usual sterile fashion. Critical pause was taken. Vital signs were closely monitored during the procedure. For the right side, the fluoroscopic camera was placed in left oblique view and right SI joint lower pole was identified. Skin entry point was infiltrated with 1% lidocaine and 22-gauge 3.5 inch spinal needle was introduced into the inferior one-third of SI joint and after penetrating into the joint arthrogram was done. 0.5 ml of [id number] contrast was injected after negative aspiration for blood, and air and negative for paresthesia. Good spread of the contrast into the SI joint has been seen. Then again after negative aspiration of spinal fluid and blood and negative for neurological symptoms, 3 mL of a solution containing total 2.5 mL of 1% preservative-free lidocaine mixed with 20 mg of Kenalog was injected. Needle was withdrawn intact. The entire procedure was repeated on the left side as above. Needle was withdrawn intact. Skin was cleansed, and bandages were applied. COMPLICATIONS: None. preprocedure VAS: 7/10 Postprocedure VAS: 5/10 DISPOSITION / PLANS: The patient was placed in a supine position and transferred to the recovery area in a stable condition for observation and was discharged from the recovery room after meeting discharge criteria. Home discharge instructions given to the patient by the staff. The patient was reexamined prior to discharge. The patient will schedule for follow-up visit with the pain clinic in 4 weeks duration.
[2023-10-06 11:39] VITALS: RESP 16
[2023-10-06 11:54] VITALS: BP 121/91; PULSE 79
--- NOTE | 2023-10-06 20:43 | FL ---
EXAMINATION TYPE: FL guided pain mgmt statistic DATE OF EXAM: 10/06/2023 FLUOROSCOPY [place] SI Inj 11sec fluoro time .[id number] Henriquez, 2 images are submitted.
== END 2023-10-06 11:54 | disposition home or self-care (01) ==
LOC: ORPAIN 10:42
PROVIDERS: ATTEND Anesthesiology
DX: M53.3 Sacrococcygeal disorders, not elsewhere classified (principal); M46.1 Sacroiliitis, not elsewhere classified; G89.29 Other chronic pain; J45.909 Unspecified asthma, uncomplicated; I10 Essential (primary) hypertension; K21.9 Gastro-esophageal reflux disease without esophagitis; F32.A Depression, unspecified; E03.9 Hypothyroidism, unspecified; F17.200 Nicotine dependence, unspecified, uncomplicated; Z88.5 Allergy status to narcotic agent; Z88.6 Allergy status to analgesic agent; Z79.890 Hormone replacement therapy; Z79.899 Other long term (current) drug therapy; Z79.84 Long term (current) use of oral hypoglycemic drugs; Z79.51 Long term (current) use of inhaled steroids
CPT/HCPCS: 81025; 27096; J3301; Q9966; G0260

== ENCOUNTER 2023-12-27 18:35 | Observation (INO) | payer OTHER ==
--- NOTE | 2023-12-27 18:45 | ED ---
Recheck HPI - General Chief Complaint: Recheck/Abnormal Lab/Rx Stated Complaint: ABN labs/low potassium Time Seen by Provider: 12/27/23 18:49 Source: patient, RN notes reviewed Mode of arrival: ambulatory Limitations: no limitations - History of Present Illness Initial Comments: This is a 38-year-old female presents emergency department chief complaint of abnormal labs. Patient had outpatient labs ordered today by Dr. Patel sent for presurgical back clearance that is scheduled in January. Patient was alerted that her potassium was critically low and reports emergency department. States that over the past week and a half she has been experiencing intermittent heart palpitations that are more frequent than she is used to and she has been experiencing muscle cramping. She denies chest pain or shortness of breath. Patient states that she has been experiencing nausea and vomiting over the past 4 to 5 months and she has been taking injectable weight loss medication. Patient, patient is on lasix for lower extremity edema and has been on this for a few years. - Related Data Home Medications Medication Instructions Recorded Confirmed Lurasidone [Latuda] 80 mg PO HS 01/23/14 12/27/23 LORazepam [Ativan] 1 mg PO HS 07/29/20 12/27/23 DULoxetine HCL [Cymbalta] 30 mg PO HS 11/28/22 12/27/23 Furosemide [Lasix] 40 mg PO DAILY 11/28/22 12/27/23 Metoprolol Tartrate [Lopressor] 50 mg PO BID 11/28/22 12/27/23 Montelukast [Singulair] 10 mg PO HS 11/28/22 12/27/23 Omeprazole 40 mg PO DAILY 11/28/22 12/27/23 Orphenadrine Citrate [Orphenadrine 100 mg PO BID PRN 01/02/23 12/27/23 Citrate ER] traMADol HCL 50 mg PO BID PRN 01/02/23 12/27/23 Dapagliflozin Propanediol [Farxiga] 5 mg PO DAILY 09/27/23 12/27/23 Semaglutide [Wegovy] 1.7 mg SQ TU 09/27/23 12/27/23 Ferrous Sulfate [Feosol] 325 mg PO HS 12/27/23 12/27/23 Ibuprofen [Motrin] 600 mg PO BID PRN 12/27/23 12/27/23 Levothyroxine Sodium [Synthroid] 125 mcg PO AC-BRKFST 12/27/23 12/27/23 Ondansetron [Zofran] 4 mg PO DAILY PRN 12/27/23 12/27/23 Tamsulosin HCl [Flomax] 0.4 mg PO DAILY 12/27/23 12/27/23 Allergies Allergy/AdvReac Type Severity Reaction Status Date / Time aspirin Allergy Rash/Hives Verified 12/27/23 20:13 codeine Allergy Rash/Hives Verified 12/27/23 20:13 Review of Systems ROS Statement: Those systems with pertinent positive or pertinent negative responses have been documented in the HPI. ROS Other: All systems not noted in ROS Statement are negative. Past Medical History Past Medical History: Diabetes Mellitus, GERD/Reflux, Hypertension, Thyroid Di sorder Additional Past Medical History / Comment(s): personality disorder, allergies History of Any Multi-Drug Resistant Organisms: None Reported Past Surgical History: Cholecystectomy, Ear Surgery Additional Past Surgical History / Comment(s): left ear drum, bunionectomy bilateral feet, tubes in ears Past Anesthesia/Blood Transfusion Reactions: No Reported Reaction Past Psychological History: Anxiety, Bipolar, Depression, PTSD Smoking Status: Current every day smoker Past Alcohol Use History: None Reported Past Drug Use History: None Reported - Past Family History Mother Family Medical History: Cancer Additional Family Medical History / Comment(s): leukemia grandma Additional Family Medical History / Comment(s): CABG x6 General Exam Limitations: no limitations General appearance: alert, in no apparent distress Eye exam: Present: normal appearance, PERRL, EOMI. Absent: scleral icterus, conjunctival injection, periorbital swelling ENT exam: Present: normal exam, mucous membranes moist Neck exam: Present: normal inspection. Absent: tenderness, meningismus, lymphadenopathy Respiratory exam: Present: normal lung sounds bilaterally. Absent: respiratory distress, wheezes, rales, rhonchi, stridor Cardiovascular Exam: Present: regular rate, normal rhythm, normal heart sounds. Absent: systolic murmur, diastolic murmur, rubs, gallop, clicks GI/Abdominal exam: Present: soft, normal bowel sounds. Absent: distended, tenderness, guarding, rebound, rigid Skin exam: Present: warm, dry, intact, normal color. Absent: rash Course Vital Signs 12/27/23 12/27/23 18:36 21:50 Temperature 97.7 F Pulse Rate 86 84 Respiratory 16 18 Rate Blood Pressure 136/95 130/87 O2 Sat by Pulse 100 100 Oximetry Medical Decision Making - Medical Decision Making Was pt. sent in by a medical professional or institution (, SIVAKUMAR, PROJECT ANALYST, urgent care, hospital, or alf...) When possible be specific @ -Patient was sent in by outpatient provider due to critically low potassium Did you speak to anyone other than the patient for history (EMS, parent, family, police, friend...)? What history was obtained from this source @ -No Did you review nursing and triage notes (agree or disagree)? Why? @ -I reviewed and agree with nursing and triage notes Were old charts reviewed (outside hosp., previous admission, EMS record, old EKG, old radiological studies, urgent care reports/EKG's, alf records)? Report findings @ -No old charts were reviewed Differential Diagnosis (chest pain, altered mental status, abdominal pain women, abdominal pain men, vaginal bleeding, weakness, fever, dyspnea, syncope, headache, dizziness, GI bleed, back pain, seizure, CVA, palpatations, mental health, musculoskeletal)? @ -Differential Weakness: Hypoglycemia, shock, sepsis, hyponatremia, anemia, infection, SC, ETOH, adverse medicine reaction, overdose, stroke, this is not meant to be an all-inclusive list. EKG interpreted by me (3pts min.). @ -Completed at 1930 sinus rhythm with a ventricular rate of 75, QT interval 135, QRS 110, QTc 328. X-rays interpreted by me (1pt min.). @ -None done CT interpreted by me (1pt min.). @ -None done U/S interpreted by me (1pt. min.). @ -None done What testing was considered but not performed or refused? (CT, X-rays, U/S, labs)? Why? @ -None What meds were considered but not given or refused? Why? @ -None Did you discuss the management of the patient with other professionals (professionals i.e. SIVAKUMAR Delgado, PROJECT ANALYST, lab, RT, psych nurse, manager social responsibility, forestry hunter, teacher, tourist information officer, outsole caser)? Give summary @ -spoke with patients PCP, dr. uriostegui in regard to hyperkalemia and she is excepted for admission with electrolyte repletion. Was smoking cessation discussed for >3mins.? @ -No Was critical care preformed (if so, how long)? @ -No Were there social determinants of health that impacted care today? How? (Homelessness, low income, unemployed, alcoholism, drug addiction, transportation, low edu. Level, literacy, decrease access to med. care, detention, rehab)? @ -No Was there de-escalation of care discussed even if they declined (Discuss DNR or withdrawal of care, Hospice)? DNR status @ -No What co-morbidities impacted this encounter? (DM, HTN, Smoking, COPD, CAD, Cancer, CVA, ARF, Chemo, Hep., AIDS, mental health diagnosis, sleep apnea, morbid obesity)? @ -None Was patient admitted / discharged? Hospital course, mention meds given and route, prescriptions, significant lab abnormalities, going to OR and other pertinent info. @ -Admitted. 2-year-old female with abnormal labs. Discussed with patient states that she has been having muscle cramps and intermittent heart palpitations. EKG reveals mild T wave flattening. vitals are stable. Laboratory results reveal a hypokalemia of 2.2 which is decreased from earlier this morning that was 2.5, magnesium 2.0 normal limits, CBC unremarkable. Patient's hypokalemia is likely secondary to loop diuretic Lasix which she has been taking approximately over the past 2 years however patient has not had a recent lab draw over the last approximately 1 year, hypothesize the patient's potassium has been declining over the past few months however when she had her labs drawn today was noted that it was critically low. Patient will be repleted with 40 mg of oral potassium and started on a IV repletion as well. She will be admitted to observation to monitor hypokalemia. discussed with Dr. Parra Undiagnosed new problem with uncertain prognosis? @ -No Drug Therapy requiring intensive monitoring for toxicity (Heparin, Nitro, Insulin, Cardizem)? @ -No Were any procedures done? @ -No Diagnosis/symptom? @ -Hypokalemia Acute, or Chronic, or Acute on Chronic? @ -Acute Uncomplicated (without systemic symptoms) or Complicated (systemic symptoms)? @ -Uncomplicated Side effects of treatment? @ -No Exacerbation, Progression, or Severe Exacerbation? @ -No Poses a threat to life or bodily function? How? (Chest pain, USA, SC, pneumonia, PE, COPD, DKA, ARF, appy, cholecystitis, CVA, Diverticulitis, Homicidal, Suicidal, threat to staff... and all critical care pts) @ -No - Lab Data Result diagrams: 12/27/23 19:41 12/27/23 19:41 Lab Results 12/27/23 12/27/23 Range/Units 19:41 19:41 WBC 10.4 (3.8-10.6) k/uL RBC 4.84 (3.80-5.40) m/uL Hgb 14.3 (11.4-16.0) gm/dL Hct 43.6 (34.0-46.0) % MCV 90.0 (80.0-100.0) fL MCH 29.4 (25.0-35.0) pg MCHC 32.7 (31.0-37.0) g/dL RDW 13.9 (11.5-15.5) % Plt Count 229 (150-450) k/uL MPV 7.6 Neutrophils % 56 % Lymphocytes % 35 % Monocytes % 5 % Eosinophils % 2 % Basophils % 0 % Neutrophils # 5.8 (1.3-7.7) k/uL Lymphocytes # 3.7 (1.0-4.8) k/uL Monocytes # 0.6 (0-1.0) k/uL Eosinophils # 0.2 (0-0.7) k/uL Basophils # 0.0 (0-0.2) k/uL Sodium 136 L (137-145) mmol/L Potassium 2.2 L* (3.5-5.1) mmol/L Chloride 94 L (98-107) mmol/L Carbon Dioxide 36 H (22-30) mmol/L Anion Gap 6 mmol/L BUN 14 (7-17) mg/dL Creatinine 1.50 H (0.52-1.04) mg/dL Est GFR (CKD-EPI)AfAm 50 (>60 ml/min/1.73 sqM) Est GFR (CKD-EPI)NonAf 44 (>60 ml/min/1.73 sqM) Glucose 97 (74-99) mg/dL Calcium 9.7 (8.4-10.2) mg/dL Magnesium 2.0 (1.6-2.3) mg/dL Total Bilirubin 0.7 (0.2-1.3) mg/dL AST 39 H (14-36) U/L ALT 46 H (4-34) U/L Alkaline Phosphatase 95 (38-126) U/L Total Protein 7.3 (6.3-8.2) g/dL Albumin 4.3 (3.5-5.0) g/dL Disposition Clinical Impression: Hypokalemia Disposition: ADMITTED IP TO THIS [facility] Condition: Stable Is patient prescribed a controlled substance at d/c from ED?: No Decision to Admit Reason: Admit from EC Decision Date: 12/27/23 Decision Time: 20:40
[2023-12-27] MEDS: SODIUM CHLORIDE 0.9% 1,000 ML IV STA (19:49)
[2023-12-27 19:59] LABS: Basophils % (A) 0 %; Eosinophils # (A) 0.2 k/uL (0-0.7); Eosinophils % (A) 2 %; HCT 43.6 % (34.0-46.0); HGB 14.3 gm/dL (11.4-16.0); Lymphocytes # (A) 3.7 k/uL (1.0-4.8); Lymphocytes % (A) 35 %; MCH 29.4 pg (25.0-35.0); MCHC 32.7 g/dL (31.0-37.0); Mean Platelet Volume 7.6; Monocytes # (A) 0.6 k/uL (0-1.0); Monocytes % (A) 5 %; Neutrophils # (A) 5.8 k/uL (1.3-7.7); Neutrophils % (A) 56 %; Platelet Count 229 k/uL (150-450); RBC 4.84 m/uL (3.80-5.40); RDW 13.9 % (11.5-15.5); WBC 10.4 k/uL (3.8-10.6)
[2023-12-27 20:03] LABS: ALT 46 U/L (4-34); AST 39 U/L (14-36); African American GFR (CKD) 50 (>60 ml/min/1.73 sqM); Albumin 4.3 g/dL (3.5-5.0); Alkaline Phosphatase 95 U/L (38-126); Anion Gap 6 mmol/L; Blood Urea Nitrogen 14 mg/dL (7-17); Calcium 9.7 mg/dL (8.4-10.2); Carbon Dioxide 36 mmol/L (22-30); Chloride 94 mmol/L (98-107); Glucose 97 mg/dL (74-99); Non-African American GFR(CKD) 44 (>60 ml/min/1.73 sqM); Sodium 136 mmol/L (137-145); Total Bilirubin 0.7 mg/dL (0.2-1.3); Total Protein 7.3 g/dL (6.3-8.2)
[2023-12-27 20:06] LABS: Potassium 2.2 mmol/L (3.5-5.1)
[2023-12-27] MEDS ORDERED: POTASSIUM CHLORIDE 20 MEQ in WATER FOR INJECTION 1 100ML.BAG IVPB STA (20:21)
[2023-12-27] MEDS ORDERED: ACETAMINOPHEN TAB 325 MG TAB PO PRN (20:41)
[2023-12-27] MEDS ORDERED: NALOXONE 0.4 MG/ML 1 ML VIAL IV PRN (20:41)
[2023-12-27] MEDS ORDERED: IBUPROFEN 400 MG TAB PO PRN (20:41)
[2023-12-27] MEDS: POTASSIUM CHLORIDE ER 20 MEQ TAB.ER PO STA (21:05)
[2023-12-27] MEDS ORDERED: CYCLOBENZAPRINE 10 MG TAB PO PRN (22:36)
[2023-12-27] MEDS: POTASSIUM CHLORIDE 10 MEQ in WATER FOR INJECTION 1 100ML.BAG IVPB SCH (22:49)
[2023-12-27] MEDS: LORazepam 0.5 MG TAB PO PRN (23:24)
[2023-12-27] MEDS: FERROUS SULFATE 325 MG TAB PO SCH (23:25)
[2023-12-27] MEDS: MONTELUKAST 10 MG TAB PO SCH (23:25)
[2023-12-27] MEDS: DULoxetine HCL 30 MG CAPSULE.DR PO SCH (23:25)
[2023-12-27] MEDS: LURASIDONE 40 MG TAB PO SCH (23:25)
[2023-12-27] MEDS: traMADol 50 MG TAB PO PRN (23:25)
[2023-12-27] MEDS: METOPROLOL TARTRATE 50 MG TAB PO SCH (23:25)
[2023-12-28] MEDS ORDERED: POTASSIUM CHLORIDE ER 20 MEQ TAB.ER PO SCH (02:00)
[2023-12-28] MEDS: LEVOTHYROXINE 125 MCG TAB PO SCH (06:17)
[2023-12-28 08:50] LABS: Basophils # (A) 0.05 X 10*3/uL (0.00-0.10); Basophils % (A) 0.5 %; Eosinophils # (A) 0.16 X 10*3/uL (0.04-0.35); Eosinophils % (A) 1.7 %; HCT 38.1 % (37.2-46.3); HGB 12.5 g/dL (12.0-15.0); Lymphocytes # (A) 3.82 X 10*3/uL (0.90-5.00); Lymphocytes % (A) 39.8 %; MCH 29.4 pg (27.0-32.0); MCHC 32.8 g/dL (32.0-37.0); MCV 89.6 FL (80.0-97.0); Mean Platelet Volume 11.1 FL (9.5-12.2); Monocytes # (A) 0.75 X 10*3/uL (0.20-1.00); Monocytes % (A) 7.8 %; NRBC Per 100 WBC 0 X 10*3/uL (0.00-0.01); Platelet Count 211 X 10*3/uL (140-440); RBC 4.25 X 10*6/uL (4.10-5.20); RDW 14.4 % (11.5-14.5)
[2023-12-28] MEDS: DAPAGLIFLOZIN PROPANEDIOL 5 MG TABLET PO SCH (09:33)
[2023-12-28] MEDS: PANTOPRAZOLE 40 MG TABLET PO SCH (09:34)
[2023-12-28] MEDS: TAMSULOSIN 0.4 MG CAP.ER.24H PO SCH (09:34)
[2023-12-28 09:52] LABS: ALT 36 U/L (8-44); AST 27 U/L (13-35); Albumin 3.6 g/dL (3.8-4.9); Albumin/Globulin Ratio 1.57 Ratio (1.60-3.17); Alkaline Phosphatase 78 U/L (41-126); Blood Urea Nitrogen 11.4 mg/dL (9.0-27.0); Calcium 8.6 mg/dL (8.7-10.3); Carbon Dioxide 28.6 mmol/L (21.6-31.8); Chloride 100 mmol/L (96-109); Globulin 2.3 g/dL (1.6-3.3); Glucose 112 mg/dL (70-110); Potassium 2.8 mmol/L (3.5-5.5); Sodium 140 mmol/L (135-145); Total Bilirubin 0.3 mg/dL (0.3-1.2); Total Protein 5.9 g/dL (6.2-8.2)
[2023-12-28] MEDS ORDERED: Potassium Replacement Protocol 1 EACH MISC MISCELLANE PRN (10:42)
[2023-12-28] MEDS: SODIUM CHLORIDE 0.9% 1,000 ML IV SCH (11:11)
[2023-12-28] MEDS: POTASSIUM CHLORIDE 10 MEQ in WATER FOR INJECTION 1 100ML.BAG IVPB SCH (11:41)
[2023-12-28] MEDS: METOPROLOL TARTRATE 12.5 MG TAB PO SCH (22:17)
[2023-12-29 04:13] VITALS: RESP 16
--- NOTE | 2023-12-29 04:17 | HP ---
HISTORY AND PHYSICAL HISTORY OF PRESENT ILLNESS: A 38-year-old white female comes to the emergency room with abnormal labs of low potassium. She is pre-surgical for Dr. Hobbs in January for back surgery. Her potassium on admission was 2.6, remains low. We stopped her Lasix, intermittent heart palpitations, muscle cramping, shortness of breath, nausea and vomiting in the past 4 to 5 months, possibly weight loss, which is making her vomit, keeping her potassium low. She has been on Lasix for many years. She has a history of bipolar. MEDICATIONS: She is on: 1. Latuda 80 mg daily. 2. Ativan 1 mg at night. 3. Cymbalta 30 at night. 4. Lasix 40 daily. 5. Lopressor 50 b.i.d. 6. Singulair 10 daily. 7. Omeprazole 40 daily. 8. Orphenadrine citrate 100 mg b.i.d. 9. Tramadol 50 b.i.d. 10.Farxiga 5 daily. 11.Wegovy 1.7 mg on Tuesdays. 12.Iron sulfate 325 daily. 13.Synthroid 125 daily. 14.Zofran 4 mg daily. 15.Flomax 0.4 daily. ALLERGIES: Aspirin and codeine. REVIEW OF SYSTEMS: A 14-point review of systems otherwise negative. PAST MEDICAL HISTORY: Diabetes, GERD, and hypothyroidism. PAST SURGICAL HISTORY: Cholecystectomy, ear surgery in left drum, bilateral bunionectomy, bipolar depression, PTSD. SOCIAL HISTORY: Current everyday smoker. FAMILY HISTORY: Mother with cancer and leukemia. PHYSICAL EXAMINATION: VITAL SIGNS: Blood pressure 136/95 in the ER, pulse is 84 to 86, temperature 97.7, and respiratory rate 16 to 18. LUNGS: Transmitted upper sounds. GI: Soft. HEMATOLOGIC: Negative for Homans. PSYCH: Fair mood and affect. NEUROLOGIC: Alert and oriented x3. ASSESSMENT: She has positive orthostatic changes. She is admitted with dehydration and orthostatic hypotension. Rehydrate. Hold Lasix. Replace potassium. Once stabilized, we will discharge her home. We will check her aldosterone level on acute on chronic renal insufficiency secondary to dehydration with a low GFR of 44. Rehydrate with normal saline. Check electrolytes. Continue current treatment. Prognosis is guarded. MMODL / IJN: [id number] /
--- NOTE | 2023-12-29 07:01 | CA ---
Transthoracic Echo Report Name: Yeni Poe Age: 38 Gender: F : 1985 Exam Date: 12/28/2023 13:44 Exam Location: [place] [facility] Ht (in): 68 Wt (lb): 248 Ordering Physician: Fabián Reynolds MD Attending/Referring Phys: Retail Selling Floor Leader Paula Hewitt RDCS Procedure CPT: Indications: positive orthos Cardiac Hx: Technical Quality: Fair Contrast 1: Total Dose (mL): Contrast 2: Total Dose (mL): MEASUREMENTS (Male / Female) Normal Values 2D ECHO LV Diastolic Diameter PLAX 4.4 cm 4.2 - 5.9 / 3.9 - 5.3 cm LV Systolic Diameter PLAX 2.6 cm IVS Diastolic Thickness 1.0 cm 0.6 - 1.0 / 0.6 - 0.9 cm LVPW Diastolic Thickness 1.1 cm 0.6 - 1.0 / 0.6 - 0.9 cm LV Relative Wall Thickness 0.5 RV Internal Dim ED PLAX 1.6 cm LA Systolic Diameter LX 3.4 cm 3.0 - 4.0 / 2.7 - 3.8 cm LV Diastolic Volume MOD BP 57.2 cm??? 67 - 155 / 56 - 104 cm??? LV Systolic Volume MOD BP 25.0 cm??? 22 - 58 / 19 - 49 cm??? LV Ejection Fraction MOD BP 56.3 % >= 55 % LV Cardiac Index MOD BP 1100.9 cm???/min???m??? LV Diastolic Volume MOD 4C 65.6 cm??? LV Systolic Volume MOD 4C 29.0 cm??? LV Ejection Fraction MOD 4C 55.8 % LV Cardiac Index MOD 4C 1252.1 cm???/min???m??? LV Diastolic Length 4C 6.8 cm LV Systolic Length 4C 5.6 cm LV Diastolic Volume MOD 2C 49.5 cm??? LV Systolic Volume MOD 2C 20.6 cm??? LV Ejection Fraction MOD 2C 58.3 % LV Cardiac Index MOD 2C 986.8 cm???/min???m??? LV Diastolic Length 2C 6.9 cm LV Systolic Length 2C 5.3 cm LA Volume 47.2 cm??? 18 - 58 / 22 - 52 cm??? LA Volume Index 19.9 cm???/m??? 16 - 28 cm???/m??? M-MODE Aortic Root Diameter MM 2.9 cm LA Systolic Diameter MM 3.4 cm LA Ao Ratio MM 1.2 AV Cusp Separation MM 1.8 cm DOPPLER MV Area PHT 2.8 cm??? Mitral E Point Velocity 93.2 cm/s Mitral A Point Velocity 98.2 cm/s Mitral E to A Ratio 0.9 MV Deceleration Time 267.9 ms TR Peak Velocity 203.1 cm/s TR Peak Gradient 16.5 mmHg FINDINGS Left Ventricle Left ventricular ejection fraction is estimated at 55-60 %. Mildly increased posterior wall thickness. Left ventricular cavity size normal. Normal left ventricular systolic function with no obvious regional wall motion abnormalities. Right Ventricle Normal right ventricular size and function. Right ventricular systolic pressure within normal limits. Right Atrium Normal right atrial size. Left Atrium Normal left atrial size. Mitral Valve Structurally normal mitral valve. Trace mitral regurgitation. No mitral stenosis. Aortic Valve Trileaflet aortic valve. No aortic valve stenosis or regurgitation. Tricuspid Valve Structurally normal tricuspid valve. Trace tricuspid regurgitation. No tricuspid stenosis. Pulmonic Valve Structurally normal pulmonic valve. No pulmonic stenosis. Pericardium No pericardial or pleural effusion. Aorta Normal size aortic root and proximal ascending aorta. CONCLUSIONS 1. Normal left ventricular size and systolic function 2. Trace mitral and tricuspid regurgitation Previewed by: Dr. Melva Pedersen MD (Electronically Signed) Final Date: 29 December 2023 07:00
[2023-12-29] MEDS: POTASSIUM BICARBONATE/CIT AC 20 MEQ TABLET.EFF PO SCH (08:49)
[2023-12-29] MEDS: POTASSIUM CHLORIDE ER 20 MEQ TAB.ER PO STA (13:53)
[2023-12-29] MEDS: SPIRONOLACTONE 25 MG TAB PO SCH (13:54)
[2023-12-29 16:08] VITALS: BP 123/83; PULSE 74; TEMP 98
[2023-12-29] MEDS ORDERED: POTASSIUM CHLORIDE ER 20 MEQ TAB.ER PO SCH (21:00)
[2023-12-29 23:48] LABS: T4, Free (Free Thyroxine) 1.64 ng/dL (0.80-1.80)
[2023-12-30] MEDS ORDERED: LURASIDONE 40 MG TAB PO SCH (09:00)
--- NOTE | 2024-03-05 00:54 | DS ---
DISCHARGE SUMMARY MEDICATIONS: 1. Ativan 1 mg at night. 2. Singulair 10 mg daily. 3. Cymbalta 30 daily. 4. Omeprazole 40 daily. 5. Tramadol 50 b.i.d. 6. Farxiga 5 mg daily. 7. Ferrous sulfate 325 daily. 8. Motrin 600 b.i.d. 9. Synthroid 125 mcg daily. 10.Flomax 0.4 mg daily. 11.Lopressor 12.5 b.i.d. 12.Aldactone 15 daily. 13.Latuda 40 daily. CONDITION: Stable. PROGNOSIS: Guarded. Ambulate as tolerated. The patient came to the hospital with some chest pain. EKG with echocardiogram was done. Echocardiogram was read by Cardiology, showing good ejection fraction. The patient cleared from atypical chest pain by Cardiology. Cleared for discharge. Follow up as an outpatient. Prognosis guarded. Ambulate as tolerated. MMODL / CHEIKHN: [id number] /
== END 2023-12-29 16:01 | disposition home or self-care (01) ==
LOC: EC 18:35 → 6NMEDSUR 20:16 → INTOOBSV 20:17 → OBSVTOIN 20:17 → 6NMEDSUR 21:07 → UNDODISIN 12-29 16:01
PROVIDERS: ADMIT Family Medicine; ATTEND Family Medicine
DX: E87.6 Hypokalemia (principal); E86.0 Dehydration; I95.1 Orthostatic hypotension; N18.9 Chronic kidney disease, unspecified; F31.9 Bipolar disorder, unspecified; F17.200 Nicotine dependence, unspecified, uncomplicated; Z79.84 Long term (current) use of oral hypoglycemic drugs; Z79.890 Hormone replacement therapy; Z79.85 Long-term (current) use of injectable non-insulin antidiabetic drugs; Z79.899 Other long term (current) drug therapy; Z88.5 Allergy status to narcotic agent; Z88.6 Allergy status to analgesic agent
CPT/HCPCS: 96361 ×2; 96365; 96366; 99285; 36415; 93005; 93306; 85379; 84439; 80053 ×2; 84443; 82533; 82088; 83735; 84132; 85025 ×2; G0378 ×3; J3480 ×2

== ENCOUNTER → 2023-12-27 | Outpatient (CLI) | payer OTHER ==
--- NOTE | 2023-12-27 11:37 | XR ---
EXAMINATION TYPE: XR chest 2V DATE OF EXAM: 12/27/2023 COMPARISON: 08/09/2021 HISTORY: Preop TECHNIQUE: Frontal and lateral views of the chest are obtained. FINDINGS: There is no focal air space opacity. No evidence for pneumothorax. No pleural effusion. The cardiac silhouette size is within normal limits. The osseous structures are grossly intact. IMPRESSION: 1. No acute cardiopulmonary process. [facility], , 12/27/2023 11:34 AM
[2023-12-27 15:02] LABS: HCT 41.1 % (37.2-46.3); HGB 13.4 g/dL (12.0-15.0); MCH 29.2 pg (27.0-32.0); MCHC 32.6 g/dL (32.0-37.0); MCV 89.5 FL (80.0-97.0); Mean Platelet Volume 11.2 FL (9.5-12.2); NRBC Per 100 WBC 0 X 10*3/uL (0.00-0.01); Platelet Count 234 X 10*3/uL (140-440); RBC 4.59 X 10*6/uL (4.10-5.20); RDW 14.3 % (11.5-14.5); WBC 8.67 X 10*3/uL (4.50-10.00)
[2023-12-27 15:41] LABS: Prothrombin Time 10.8 sec (9.9-11.9)
[2023-12-27 15:51] LABS: ALT 43 U/L (8-44); AST 33 U/L (13-35); Albumin 4.1 g/dL (3.8-4.9); Albumin/Globulin Ratio 1.46 Ratio (1.60-3.17); Alkaline Phosphatase 95 U/L (41-126); BUN/Creat Ratio 8.27 Ratio (12.00-20.00); Blood Urea Nitrogen 12.4 mg/dL (9.0-27.0); Calcium 9.5 mg/dL (8.7-10.3); Carbon Dioxide 30.9 mmol/L (21.6-31.8); Chloride 92 mmol/L (96-109); Globulin 2.8 g/dL (1.6-3.3); Glucose 114 mg/dL (70-110); Potassium 2.5 mmol/L (3.5-5.5); Sodium 139 mmol/L (135-145); Total Bilirubin 0.4 mg/dL (0.3-1.2); Total Protein 6.9 g/dL (6.2-8.2)
== END | disposition home or self-care (01) ==
LOC: LABPAT 09:53
PROVIDERS: ATTEND Orthopaedic Surgery
DX: Z01.818 Encounter for other preprocedural examination
CPT/HCPCS: 71046; 80053; 85027; 85610; 93005

== ENCOUNTER → 2024-01-10 | Outpatient (CLI) | payer OTHER | END | disposition home or self-care (01) | LOC: LABWHC1 08:51 | PROVIDERS: ATTEND Orthopaedic Surgery | CPT/HCPCS: 86850; 86900; 86901; 87070 ==

== ENCOUNTER 2024-01-15 05:40 | Day surgery (SDC) | payer OTHER ==
[2024-01-05 11:30] VITALS: BMI 37.7
--- NOTE | 2024-01-10 20:06 | P.HPOR ---
History of Present Illness H&P Date: 12/04/23 .T:Title: [facility] [address] [place] [address]| DO YENI DECKER, MSN, SPORTS RECRUITER-C Age: 38 year Height: 5'8" Weight: 285 lbs BP:/ BMI: 43.33 kg/m2 Occupation: CC: Sacroilitis VAS: 7 HISTORY: Ms. Poe presents to the office today, 12/04/23, for recheck of her sacroilitis. She states she had injection at the hospital on 10/06/23 in the SIJ which has give her 100% relief of her sx for the first two hours, but then after this the sx have come back and worse. She states the previous shots also gave her relief which was >75% for each of those shots, but it did not last longer than 1 month at the longest. She has tried Rx and OTC medications for her issues. She has tried an SI belt, PT and HEP with no improvement in her sx. She states she continues to have significant pain with sitting, standing, walking up and down stairs as well as her day to day activities to the point where she is now avoiding things due to her pain and this is making her frustrated as she is normally active. She states she is ready to have this fixed as she is done with the temporary fixes. H8 Patient denies any f/c/sob/cp, perineal numbness or tingling, bowel, or bladder incontinence/retention. Patient is ambulatory with her own power P1 The patients past social, medical, family, surgical history, as well as review of systems, have been reviewed. Please refer to the History and Physical form that has been scanned into our electronic medical record system. R0 16 points review of systems completed and as stated in HPI, all other systems reviewed are negative. PAST TREATMENTS: PAST IMAGING: YES - TRAUMA RELATED: NO - WORK RELATED: NO - PT IN LAST 6 MONTHS: YES - PHYSICIAN DIRECTED HOME EXERCISE PROGRAM: YES - ACTIVITY MODIFICAITON: YES - MEDICATIONS: YES - ALTERNATIVE INTERVENTIONS (CHIROPRACTIC, ACCUPUNCTURE, MASSAGE, RICE): YES - BRACING: NO - INJECTIONS (JOSE ELIAS, TF, RFA): YES - 09/29/23; 10/06/23; 11/06/23; 08/23/23 MEDICAL HISTORY: Past Medical History: REVIEWED STATED IN CHART Past Surgical History: REVIEWED STATED IN CHART Social History: REVIEWED STATED IN CHART SMOKING: Never smoker ETOH: None SUBSTANCES: None Family History: REVIEWED STATED IN CHART P1 Current Medications: Rx: Ativan 0.5 mg tablet Ref: 0 Instructions: take 2 tablets (1 mg) by oral route 3 times per day as needed Rx: DULoxetine 30 mg capsule,delayed release Ref: 0 Instructions: take 1 capsule (30 mg) by oral route once daily Rx: Farxiga 5 mg tablet Ref: 0 Instructions: take 1 tablet (5 mg) by oral route once daily in the morning Rx: ferrous sulfate 325 mg (65 mg iron) tablet Ref: 0 Instructions: take 1 tablet (325 mg) by oral route once daily Rx: IBU 600 mg tablet Ref: 0 Instructions: take 1 tablet (600 mg) by oral route 3 times per day with food Rx: Lasix 40 mg tablet Ref: 0 Instructions: take 1 tablet (40 mg) by oral route once daily Rx: Latuda 80 mg tablet Ref: 0 Instructions: take 1 tablet (80 mg) by oral route once daily with food (at least 350 calories) Rx: levothyroxine 125 mcg capsule Ref: 0 Instructions: take 1 capsule (125 mcg) by oral route once daily Rx: metoprolol tartrate 50 mg tablet Ref: 0 Instructions: take 1 tablet (50 mg) by oral route 2 times per day with meals Rx: omeprazole 40 mg capsule,delayed release Ref: 0 Instructions: take 1 capsule (40 mg) by oral route once daily before a meal Rx: orphenadrine citrate ER 100 mg tablet,extended release Ref: 0 Instructions: take 1 tablet (100 mg) by oral route 2 times per day in the morning and evening as needed Rx: Singulair 10 mg tablet Ref: 0 Instructions: take 1 tablet (10 mg) by oral route once daily in the evening Rx: traMADol 50 mg tablet Ref: 0 Instructions: take 1 tablet (50 mg) by oral route every 6 hours as needed Rx: ibuprofen 600 mg tablet Ref: 0 Instructions: take 1 tablet (600 mg) by oral route 3 times per day with food P1 PHYSICAL EXAM: PC2 PC1 General: AOX3, NAD, Well hydrate, well nourished PN1 HEENT: No lumps or masses Extremities: No color changes, no pooling INTEGUMENT: Appearance: Normal color and turgor Surgical Incisions: Hairy Patches: ABSENT Dorsal Skin Dimples: Normal [employer] [place] spots: ABSENT PALPATION: TTP Midline: NO Paracervical: NO Parathoracic: NO Paralumbar: NO SIJ TESTING: TESTLED * [place] Finger: POS LEFT * FABER4: POS LEFT * Compression: POS LEFT * Distraction: POS LEFT * Thigh thrust: POS b/l * Hip thrust: POS b/l POSTURAL BALANCE: Coronal: BALANCED Sagittal: BALANCED Shoulder height: LEVEL Pelvic Girdle: LEVEL ROM AND APPEARANCE: Neck: UNRESTRICTED Lumbar: RESTRICTED Shoulders: Symmetrical Hips: Symmetrical Knees: Symmetrical Hands: Symmetrical Feet: Symmetrical VASCULAR STATUS: PALPABLE PULSES B/L UE AND LE 2/4 RAD/ULNAR/DP/PT Edema: NONE NEUROLOGICAL EXAMINATION: Mental Status: Awake, alert, fully oriented with normal attention, concentration, and memory. Fluent appropriate speech. CRANIAL NERVES: I: Olfactory not assessed. II: Visual acuity normal, no visual field deficit noted with confrontation. III, IV: Normal pupillary reflexes & intact extraocular movements without nystagmus. V, : Intact symmetrical facial sensation. VII: Intact symmetrical facial motor movement: Hearing intact. IX, X: Intact gag, swallow, & normal voice. XI: Sternocleidomastoid, trapezius function intact. XII: Tongue midline with normal movements. TENSIONING: * L'HERMITTE'S SIG:NEG SPURLUNG'S SIGN:NEG CUBITAL TUNNEL COMPRESSION:NEG TINELS AT WRIST:NEG STRAIGH LEG RAISE:NEG CONTRALATERAL STRAIGHT LEG RAISE: NEG MOTOR EXAM (0-5/5, NT) Muscle appearance: Symmetrical, without signs of atrophy or dystrophy UPPER EXTREMITY RIGHT LEFT Shoulder Abduction 5 5 Biceps 5 5 Triceps 5 5 Wrist Extension 5 5 Hand Intrinsics 5 5 Coding Advisor 5 5 LOWER EXTREMITY RIGHT LEFT Hip Flexion 5 5 Knee Extension 5 5 Knee Flexion 5 5 Dorsiflexion 5 5 Plantarflexion 5 5 EHL 5 5 FHL 5 5 REFLEXES (0-4/2, NT): RIGHT LEFT Bicep 2 2 Brachioradialis 2 2 Triceps 2 2 Patellar 2 2 Achilles 2 2 PATHOLOGICAL REFLEXES: RIGHT LEFT NIELSEN'S ABSENT ABSENT CLONUS ABSENT ABSENT BABINSKI ABSENT ABSENT RECTAL TONE: INTACT/NT SENSATION (0-4, NT): Sensation intact to LT and Pain * C5-T1 distribution BUE * L2-S2 distribution BLE *Exceptions below* DERMATOMAL DEFICIT/RADICULAR PATTERN: NA GAIT AND FUNCTIONAL EVALUATION: AMBULATORY AID NA ROMBERG'S TEST INTACT HAND AND FINGER DEXTERITY INTACT YES DYSDIADOCHOKINESIA EXAM NEG B/L YES TOE/HEEL WALK INTACT WITH GOOD BALANCE YES SQUAT AND RISE W/O ASSISTANCE TO 60 DEG KNEE FLEXION YES SINGLE LEG STANCE NOT INTACT TR[place]G NT IMAGING: Prevous Xray and CT reviewed. This fails to demonstrate any lumbar issues that would contribute to her current sx. 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 There are few subchondral cysts noted on xray. No fractures noted. IMPRESSION: It was my pleasure to have seen and examined Yeni. I reviewed the patient's clinical syndrome, physical findings, and imaging studies during the appointment today. It is my impression that the patient has a diagnosis of. 1.LEFT Sacroiliitis 2. Low back pain PLAN: DISCUSSION: -I have discussed with the patient her clinical signs and sx as well as imaging and her diagnostic and thereputic treatments thus far. She has had multiple different modalities of conservative measures of which have now failed to provide her with lasting relief of her sx in her SIJ. She is getting frustrustred with her current progress and wants to feel better which is understandable. We discussed all optoins for treatment including, time, injections, Rx and OTC meds and surgical options. She states she is ready for surgery due to failure of the conservative to give her any lasting relief and she wants to get back to doing things she likes. -SHE WILL REVIEW RISK REVIEW FOR SURGERY -SHE WILL OBTAIN PCP CLEARANCE FOR SURGERY -SHE WILL OBTAIN LABS PRIOR TO SURGERY CXR AND EKG. SURGICAL RECOMMENDATION -LEFT MINIMALLY INVASIVE SACROILIAC JOINT FUSION THERAPIES -CONT ABLE -Cont. with home exercises and home PT exercises as able -Cont. with Heat/Ice as warranted -Cont. with supplementation Vit D, Vit C, Ca2+, High protein diet -OK for massage or other alternative treatment modalities as able. If it exacerbates your sx do not continue ACTIVITY -NO RESTRICTIONS, PAIN LIMITING -NO LIFTING BENDING TWISTING PUSHING PULLING GREATER THAN -30LBS -Recommend walking up to 30 min 2x daily on a flat easy surface with good support. MEDICATIONS -CONT CURRENT REGIMENT -Take as directed -Cont. home medications as directed by your PCP. Check with your PCP for any medication interactions or issues if needed. IMAGING -CT PELVIS ORDERED WELL B/L SIJ PLAIN FILMS AND XR OF THE LEFT HIP TO BE COMPLETED AT [facility] FOR RAD READS INJECTIONS -NA FOLLOW UP: post op PLAN AT NEXT VISIT: RECHECK AND PRE OP VISIT PATIENT EDUCATION: Medications Reviewed: YES In our visit today Ms. Poe and I have had a chance to go over my understanding of the patient's current condition, the natural course history without intervention and various interventional options. Questions were invited and answered, and the patient wishes to proceed as outlined above. I will be sure to keep you updated after Ms. Poe returns here for further follow-up. Thank you again for your referral. Please do not hesitate to contact me if you have any further questions. Signed and authenticated by: Darnell Mccord [facility] [address] [place] [address] . This message is confidential, intended only for the named recipient(s) and may contain information that is privileged or exempt from disclosure under applicable law. If you are not the intended recipient(s), you are notified that the dissemination, distribution or copying of this information is prohibited. If you received this message in error, please notify the sender then delete this message. # SIGNED BY Darnell Hobbs ([facility])12/20/2023 07:36AM Past Medical History Past Medical History: Diabetes Mellitus, GERD/Reflux, Hypertension, Thyroid Disorder Additional Past Medical History / Comment(s): personality disorder, allergies, low potassium- admitted 12/26-12/29/23- Per pt redrawn at PCP after discharge and potassium was 3.8. History of Any Multi-Drug Resistant Organisms: None Reported Past Surgical History: Cholecystectomy, Ear Surgery Additional Past Surgical History / Comment(s): left ear drum, bunionectomy bilateral feet, tubes in ears, epidural and bilateral SI joint injections- seen by pain clinic Past Anesthesia/Blood Transfusion Reactions: No Reported Reaction Smoking Status: Current every day smoker - Past Family History Mother Family Medical History: Cancer Additional Family Medical History / Comment(s): leukemia grandma Additional Family Medical History / Comment(s): CABG x6 Medications and Allergies Home Medications Medication Instructions Recorded Confirmed Type DULoxetine HCL [Cymbalta] 30 mg PO HS 11/28/22 01/05/24 History Montelukast [Singulair] 10 mg PO HS 11/28/22 01/05/24 History Omeprazole 40 mg PO DAILY 11/28/22 01/05/24 History traMADol HCL 50 mg PO BID PRN 01/02/23 01/05/24 History Ferrous Sulfate [Iron (65 MG 325 mg PO HS 12/27/23 01/05/24 History Elemental)] Ibuprofen [Motrin] 600 mg PO BID PRN 12/27/23 01/05/24 History Levothyroxine Sodium [Synthroid] 125 mcg PO AC-BRKFST 12/27/23 01/05/24 History Tamsulosin HCl [Flomax] 0.4 mg PO DAILY 12/27/23 01/05/24 History Albuterol Inhaler [Ventolin Hfa 1 - 2 puff INHALATION Q6H PRN 01/05/24 01/05/24 History Inhaler] Budesonide-Formot 160-4.5 Mcg 2 puff INHALATION BID 01/05/24 01/05/24 History [Symbicort 160-4.5 Mcg Inhaler] Dapagliflozin Propanediol [Farxiga] 5 mg PO DAILY 01/05/24 01/05/24 History FLUoxetine HCL [PROzac] 30 mg PO HS 01/05/24 01/05/24 History LORazepam [Ativan] 0.5 mg PO HS 01/05/24 01/05/24 History Lurasidone [Latuda] 40 mg PO HS 01/05/24 01/05/24 History Midodrine [ProAmatine] 5 mg PO TID 01/05/24 01/05/24 History Umeclidinium [place] [Incruse 1 puff INHALATION BID 01/05/24 01/05/24 History Ellipta] Allergies Allergy/AdvReac Type Severity Reaction Status Date / Time aspirin Allergy Rash/Hives Verified 01/05/24 11:11 codeine Allergy Rash/Hives Verified 01/05/24 11:11 Physical Examination Osteopathic Statement: *. No significant issues noted on an osteopathic structural exam other than those noted in the History and Physical/Consult.
[~2024-01-15 05:40] MED LIST changes: -LACTATED RINGERS 1,000 ML IV SCH; +TRANEXAMIC 1,000 MG/100ML-NACL 1,000 MG in SALINE 1 100ML.BAG IVPB PRN
[2024-01-15] MEDS: GABAPENTIN 300 MG CAP PO PRN (06:45)
[2024-01-15] MEDS: ACETAMINOPHEN TAB 500 MG TAB PO PRN (06:45)
[2024-01-15] MEDS: LACTATED RINGERS 1,000 ML IV SCH (06:59)
[2024-01-15 07:00] LABS: Glucose,Whole Blood 97 mg/dL (70-110)
[2024-01-15] MEDS: ONDANSETRON 4 MG/2 ML VIAL IVP PRN (07:00)
[2024-01-15] MEDS ORDERED: MIDAZOLAM 2 MG/2 ML VIAL IV PRN (07:00)
[2024-01-15] MEDS: IV FLUID CONTINUATION 1,000 ML IV ONE (07:12)
[2024-01-15] MEDS ORDERED: PROPOFOL 10 MG/ML 20 ML VIAL IV ONE (07:30)
[2024-01-15] MEDS ORDERED: NEOSTIGMINE 1 MG/ML 10 ML VIAL ONE (07:30)
[2024-01-15] MEDS ORDERED: KETAMINE HCL IN 0.9 % NACL 50 MG/5 ML SYRINGE ONE (07:30)
[2024-01-15] MEDS ORDERED: GLYCOPYRROLATE 0.2 MG/ML 2 ML VIAL ONE (07:30)
[2024-01-15] MEDS ORDERED: TRANEXAMIC 1,000 MG/100ML-NACL PREMIX BAG ONE (07:30)
[2024-01-15] MEDS ORDERED: LIDOCAINE 1% INJ 10MG/ML (20 ML MDV) ONE (07:30)
[2024-01-15] MEDS ORDERED: MIDAZOLAM 2 MG/2 ML VIAL ONE (07:30)
[2024-01-15] MEDS ORDERED: PHENYLEPHRINE 10 MG/ML VIAL ONE (07:30)
[2024-01-15] MEDS ORDERED: ROCURONIUM 10 MG/ML (5 ML VIAL) IV ONE (07:30)
[2024-01-15] MEDS ORDERED: SUCCINYLCHOLINE CHLORIDE 200 MG/10 ML VIAL IV ONE (07:30)
[2024-01-15] MEDS ORDERED: fentaNYL (PF) 50 MCG/ML 2 ML AMP ONE (07:30)
--- NOTE | 2024-01-15 07:35 | P.PN ---
Progress Note - Text Progress Note Date: 01/15/24 History and Physical UPDATE I have seen and examined the patient and reviewed the history and physical. There appear to be no significant changes in the patient's current medical status as outlined in the current History and Physical. I discussed at length with the patient her clinical signs and symptoms as well as treatment options. The patient is comfortable proceeding forward with a left minimally invasive SI joint fusion. Patient has positive provocative tests positive Maynor's finger sign and tenderness to palpation of the left SI joint she has positive compression distraction hip thrust of thigh thrust on the left- hand side she has positive Lo 4 on the left-hand side. She has pain when she goes up and down stairs when she is seated or standing on the left side and she has pain when she is standing single leg on the left side. She has had multiple injections into the left SI joint. Provided her 80% or more relief of her symptoms. These however were transient and the pain has returned. We have discussed at length that this will help her pain and alleviate her pain symptoms. It may also help with her leg symptoms however it may not completely relieve her leg symptoms and she understands this and is comfortable with this. We discussed the risks and benefits of the procedure again as outlined in the risk review which include but are not limited to bleeding infection damage to surrounding tissue and risk of reoperation risk of anesthesia up to and including was going assume these risks and all the risks of surgery. she is comfortable proceeding with a left minimally invasive SI joint fusion This will be done an outpatient basis and she will go home today.
[2024-01-15] MEDS: BUPIVACAINE (PF) 0.5% 30 ML VIAL SQ ONE (08:10)
[2024-01-15] MEDS: LIDOCAINE 2%-EPI 1:100,000 20 ML VIAL SQ ONE (08:10)
[2024-01-15] MEDS: LACTATED RINGERS 1,000 ML IV ONE (08:39)
--- NOTE | 2024-01-15 09:16 | P.OP ---
Date of Procedure: 01/15/24 Preoperative Diagnosis: Date of Surgery: January 15, 2024 Preoperative Diagnosis: Left sacroiliac joint dysfunction/disruption ICD- 10 Code: M46.1 (Sacroiliitis, not elsewhere classified) Postoperative Diagnosis: Preoperative Diagnosis: Left sacroiliac joint dysfunction/disruption ICD- 10 Code: M46.1 (Sacroiliitis, not elsewhere classified) Procedure(s) Performed: Procedure Performed: Left minimally invasive sacroiliac joint fusion CPT Code: 72157 (Arthrodesis, sacroiliac joint, percutaneous or minimally invasive, with image guidance, includes obtaining bone graft when performed) Implants: IMPLANTS USED: 3 SI bone Torque screws SI fusion implants Anesthesia: GETA Surgeon: Darnell Hobbs Wood Heel Flap Inserter #1: Kilo Lala (was present and assisted with all aspects of the case from position to dressing placement. ) Estimated Blood Loss (ml): 50 IV fluids (ml): 1,000 Urine output (ml): 0 Pathology: none sent Condition: stable Disposition: PACU Indications for Procedure: INDICATIONS FOR SURGERY: The patient is a 38 year-old Female who presented with chronic left sacroiliac joint pain refractory to conservative treatment including physical therapy, SI joint injections, and NSAIDs for >6 months. Diagnostic injections were positive with >75% temporary pain relief. Imaging studies demonstrated SI joint disruption with sclerosis and correlating sx. INFORMED CONSENT: The following risks were discussed with the patient: - Infection - Bleeding - Nerve injury - Hardware failure or malposition - Nonunion - Persistent pain - DVT/PE - Anesthetic risks - Need for revision surgery - Adjacent segment degeneration The patient understood and agreed to proceed. See risk review. Description of Procedure: DESCRIPTION OF PROCEDURE: 1. Patient was brought to the operating room and general anesthesia was induced. 2. Patient was positioned prone on a radiolucent table with appropriate padding of pressure points. 3. The left SI joint was localized under fluoroscopic guidance. 4. The surgical site was prepped and draped in sterile fashion. 5. Lateral and inlet/outlet views were obtained to confirm optimal trajectory. 6. A 3cm lateral incision was made over the planned trajectory. -pins were placed for [place] naviation into the PSIS on the right side and tracker attached. A 3D Zhiem spin was then registered and confirmed to be accurate. 7. Under navigation and fluoroscopic guidance, 3 guide pins were placed across the SI joint. 8. Sequential dilators were used to create the working channel. 9. The pathway was drilled and broached according to contract designer specifications. 10. Three SI bone Torque titanium plasma spray coated implants were placed across the SI joint under navigation and fluoroscopic guidance. 11. Final AP, lateral, inlet, and outlet views confirmed appropriate implant placement. 12. The wound was irrigated and closed in layers using: - Deep fascia: 0 Vicryl - Subcutaneous: 2-0 Vicryl - Skin: [place] 13. Sterile dressing was applied. ESTIMATED BLOOD LOSS: 50cc COMPLICATIONS: None SPECIMENS: None POSTOPERATIVE PLAN: 1. Weight bearing as tolerated with walker/crutches for 6 weeks 2. DVT prophylaxis 3. Pain management 4. Wound check in 2 weeks 5. Physical therapy to begin at 6 weeks post-op 6. X-rays at 6 weeks, 3 months, and 6 months to assess fusion DISPOSITION: Patient was transferred to PACU in stable condition. Surgeon: DO Anjel Dictated: January 15, 2024
[2024-01-15] MEDS: fentaNYL (PF) 50 MCG/ML 2 ML AMP IV PRN (09:44)
[2024-01-15 09:53] VITALS: TEMP 97.1
[2024-01-15] MEDS: HYDROmorphone 0.5 MG/0.5 ML SYRINGE IVP PRN (10:37)
[2024-01-15 11:34] VITALS: RESP 18
--- NOTE | 2024-01-15 11:42 | FL ---
EXAMINATION TYPE: FL guidance operating room, XR lumbar spine 2 or 3V DATE OF EXAM: 01/15/2024 Comparison: None Clinical History: 38-year-old female L5/S1 Laminoforaminotomy Findings: L5-S1 Fusion 1.03min fluoro time Dr. Hobbs 2 images submitted [facility], , 01/15/2024 11:40 AM
[2024-01-15] MEDS: HYDROcodone/APAP 7.5-325MG 1 EACH TAB PO STA (11:44)
[2024-01-15 12:08] VITALS: BP 117/83; PULSE 86
== END 2024-01-15 12:32 | disposition home or self-care (01) ==
LOC: OR 05:40
PROVIDERS: ATTEND Orthopaedic Surgery
DX: M46.1 Sacroiliitis, not elsewhere classified (principal); F17.210 Nicotine dependence, cigarettes, uncomplicated; Z88.6 Allergy status to analgesic agent; Z88.5 Allergy status to narcotic agent
CPT/HCPCS: 81025; 72100; 27279; C1713; J2250; J0330; J2710; J0690; J2405; J2003; J3010; J2704; J1171; J2371; J0665; J1596

== ENCOUNTER → 2024-01-29 | Outpatient (CLI) | payer OTHER ==
[2024-01-29 17:16] LABS: African American GFR (CKD) 83 (>60 ml/min/1.73 sqM); Blood Urea Nitrogen 18 mg/dL (7-17); Non-African American GFR(CKD) 72 (>60 ml/min/1.73 sqM)
--- NOTE | 2024-02-04 18:44 | CT ---
EXAMINATION TYPE: CT adrenal glands wo/w con DATE OF EXAM: 01/29/2024 5:57 PM COMPARISON: None. CLINICAL INDICATION: Female, 38 years old with history of E27.1 PRIMARY ADRENOCORTICAL INSUFFICIENCY, Primary adrenocortical insufficiency. TECHNIQUE: Axial images were obtained from above the diaphragm to the pubic rami in the axial plane a t 5 mm thick sections. Reconstructed images are reviewed on the computer in the coronal plane. CONTRAST: 100ml mL of Isovue 300. Study performed DLP: 3657.70 mGycm, Automated exposure control for dose reduction was used. FINDINGS: Limited CT sections are obtained the lung bases. The lung bases are clear. CT ABDOMEN: Liver: May be a medial hepatic hemangioma in the right tip. Series 6 image 39. Spleen: Normal Pancreas: Normal Adrenal glands: The adrenal glands are normal. No nodules evident. Gallbladder: Surgically absent Kidneys: No masses are evident. No hydronephrosis is present. No cysts are present. No renal stone s are evident. Aorta: Normal Inferior vena cava: Normal. CT PELVIS: Loops of bowel within the abdomen and pelvis are normal. There are loops of bowel which are incom pletely distended or lack oral contrast limiting their evaluation. Appendix: Normal as visualized. Urinary bladder: Normal. Genitourinary structures: Uterus and adnexa are unremarkable Osseous structures: No suspicious lytic or sclerotic lesions. IMPRESSION: 1. No suspicious adrenal masses. 2. No extra-adrenal suspicious mass is identified [facility], , 02/04/2024 6:42 PM
== END | disposition home or self-care (01) ==
LOC: RADCTMAIN 16:17
PROVIDERS: ATTEND Family Medicine
DX: E27.1 Primary adrenocortical insufficiency (principal)
CPT/HCPCS: 82565; 84520; 36415; 74170; Q9967

== ENCOUNTER 2024-04-12 15:15 | Emergency (ER) | payer OTHER ==
[2024-04-12 15:29] VITALS: TEMP 98.3
[2024-04-12] MEDS: SODIUM CHLORIDE 0.9% 500 ML 500 ML IV STA (16:45)
[2024-04-12] MEDS: LORazepam 2 MG/ML INJ IV STA (16:46)
[2024-04-12 16:51] LABS: Basophils % (A) 0 %; Eosinophils # (A) 0.6 k/uL (0-0.7); Eosinophils % (A) 5 %; HCT 43.8 % (34.0-46.0); HGB 13.9 gm/dL (11.4-16.0); Lymphocytes # (A) 4.1 k/uL (1.0-4.8); Lymphocytes % (A) 36 %; MCH 27.6 pg (25.0-35.0); MCHC 31.8 g/dL (31.0-37.0); MCV 86.7 fL (80.0-100.0); Mean Platelet Volume 7.3; Monocytes # (A) 0.5 k/uL (0-1.0); Monocytes % (A) 5 %; Neutrophils # (A) 5.8 k/uL (1.3-7.7); Neutrophils % (A) 52 %; Platelet Count 246 k/uL (150-450); RBC 5.06 m/uL (3.80-5.40); RDW 14.5 % (11.5-15.5); WBC 11.3 k/uL (3.8-10.6)
[2024-04-12 16:59] LABS: Appearance,Urine Clear (Clear); Bilirubin,Urine Negative (Negative); Blood,Urine Negative (Negative); Color,Urine Light Yellow; Glucose,Urine (UA) 4+ (Negative); Ketones,Urine Negative (Negative); Leukocyte Esterase,Urine Negative (Negative); Nitrite,Urine Negative (Negative); Protein,Urine Negative (Negative); Urobilinogen,Urine <2.0 mg/dL (<2.0)
[2024-04-12 17:09] LABS: ALT 48 U/L (4-34); AST 34 U/L (14-36); African American GFR (CKD) 78 (>60 ml/min/1.73 sqM); Albumin 4.5 g/dL (3.5-5.0); Alkaline Phosphatase 92 U/L (38-126); Anion Gap 12 mmol/L; Blood Urea Nitrogen 11 mg/dL (7-17); Calcium 9.8 mg/dL (8.4-10.2); Carbon Dioxide 25 mmol/L (22-30); Chloride 101 mmol/L (98-107); Glucose 105 mg/dL (74-99); Non-African American GFR(CKD) 68 (>60 ml/min/1.73 sqM); Potassium 3.7 mmol/L (3.5-5.1); Sodium 138 mmol/L (137-145); Total Bilirubin 0.5 mg/dL (0.2-1.3); Total Protein 7.4 g/dL (6.3-8.2)
[2024-04-12 17:26] LABS: Influenza A Not Detected (Not Detectd); Influenza B Not Detected (Not Detectd); RSV Not Detected (Not Detectd)
--- NOTE | 2024-04-12 18:15 | XR ---
EXAMINATION TYPE: XR chest 2V DATE OF EXAM: 04/12/2024 5:13 PM COMPARISON: 12/27/2023 CLINICAL INDICATION: Female, 39 years old with history of dysrhythmia, TECHNIQUE: XR chest 2V view(s) obtained. FINDINGS: The heart size is normal. The pulmonary vasculature is normal. The lungs are clear. IMPRESSION: 1. No acute pulmonary process radiographically apparent. [facility], Workstation: [facility], 04/12/2024 6:13 PM
--- NOTE | 2024-04-12 18:31 | ED ---
General Adult HPI - General Chief complaint: Arrhythmia/Palpitations Stated complaint: heart palpitations Time Seen by Provider: 04/12/24 16:28 Source: patient, RN notes reviewed, old records reviewed Mode of arrival: ambulatory Limitations: no limitations - History of Present Illness Initial comments: Patient is a 39-year-old female presents emergency department complaining of palpitations. Has a history of heart failure, diabetes, hypertension, thyroid disorder, anxiety. States the symptoms started prior to arrival. States she has had this previously and had low potassium. [place] anxious regarding it as it was somewhat sudden. Has been under a lot of stress lately as well. He was told to come here by her PCP. Took a dose of her Ativan prior to arrival. States this did help some but is still having the symptoms. Describes what she says is chest pain however it is actually palpitations when she describes it as her heart beating quickly. It is over the last upper chest. No amira pain. No shortness of breath. No nausea, vomiting, diarrhea. No other acute complaints at this time. Patient presents for further evaluation. - Related Data Home Medications Medication Instructions Recorded Confirmed DULoxetine HCL [Cymbalta] 30 mg PO HS 11/28/22 04/12/24 Montelukast [Singulair] 10 mg PO HS 11/28/22 04/12/24 Omeprazole 40 mg PO DAILY 11/28/22 04/12/24 traMADol HCL 50 mg PO BID PRN 01/02/23 04/12/24 Ferrous Sulfate [Iron (65 MG 325 mg PO DAILY 12/27/23 04/12/24 Elemental)] Ibuprofen [Motrin] 600 mg PO BID PRN 12/27/23 04/12/24 Levothyroxine Sodium [Synthroid] 125 mcg PO DAILY 12/27/23 04/12/24 Tamsulosin HCl [Flomax] 0.4 mg PO HS 12/27/23 04/12/24 Albuterol Inhaler [Ventolin Hfa 2 puff INHALATION RT-Q4H PRN 01/05/24 04/12/24 Inhaler] Budesonide-Formot 160-4.5 Mcg 2 puff INHALATION RT-BID 01/05/24 04/12/24 [Symbicort 160-4.5 Mcg Inhaler] Dapagliflozin Propanediol [Farxiga] 5 mg PO DAILY 01/05/24 04/12/24 LORazepam [Ativan] 0.5 mg PO BID 01/05/24 04/12/24 Lurasidone [Latuda] 40 mg PO HS 01/05/24 04/12/24 Umeclidinium [place] [Incruse 1 puff INHALATION RT-BID 01/05/24 04/12/24 Ellipta] Gabapentin [Neurontin] 300 mg PO DIRECTED 04/12/24 04/12/24 Hydrocortisone [Cortef] 5 mg PO BID 04/12/24 04/12/24 Ondansetron [Zofran] 4 mg PO DAILY PRN 04/12/24 04/12/24 Orphenadrine Citrate [Orphenadrine 100 mg PO BID PRN 04/12/24 04/12/24 Citrate ER] Tirzepatide [Zepbound] 2.5 mg SQ FR 04/12/24 04/12/24 Allergies Allergy/AdvReac Type Severity Reaction Status Date / Time aspirin Allergy Rash/Hives Verified 04/12/24 18:35 codeine Allergy Rash/Hives Verified 04/12/24 18:35 Review of Systems ROS Statement: Those systems with pertinent positive or pertinent negative responses have been documented in the HPI. Review of Systems: CONST: Denies fever EYES: Denies blurry vision ENT: Denies nasal congestion C/V: Endorses heart palpitations RESP: Denies shortness of breath GI: Denies abdominal pain : Denies dysuria SKIN: Denies rash. MSK: Denies joint pain. NEURO: Denies headache ROS Other: All systems not noted in ROS Statement are negative. Past Medical History Past Medical History: Heart Failure, Diabetes Mellitus, GERD/Reflux, Hypert ension, Thyroid Disorder Additional Past Medical History / Comment(s): personality disorder, allergies, low potassium- admitted 12/26-12/29/23- Per pt redrawn at PCP after discharge and potassium was 3.8. History of Any Multi-Drug Resistant Organisms: None Reported Past Surgical History: Cholecystectomy, Ear Surgery Additional Past Surgical History / Comment(s): left ear drum, bunionectomy bilateral feet, tubes in ears, epidural and bilateral SI joint injections- seen by pain clinic Past Anesthesia/Blood Transfusion Reactions: No Reported Reaction Past Psychological History: Anxiety, Bipolar, Depression, PTSD Smoking Status: Former smoker Past Alcohol Use History: None Reported Past Drug Use History: None Reported - Past Family History Mother Family Medical History: Cancer Additional Family Medical History / Comment(s): leukemia grandma Additional Family Medical History / Comment(s): CABG x6 General Exam - General Exam Comments Initial Comments: General: Appears anxious HEAD: Normal with no signs of head trauma. EYES: PERRLA, EOMI, conjunctiva normal, no discharge. ENT: Hearing grossly intact, normal oropharynx. RESPIRATORY: Clear breath sounds bilaterally. No wheezes, rales, or rhonchi. C/V: Regular rate and rhythm. S1 and S2 auscultated, no edema, peripheral pulses 2+ and intact throughout ABD: Abd is soft, nontender, nondistended EXT: Normal range of motion, no obvious deformity SKIN: No rashes or lesions observed on exposed skin. NEURO: Alert and oriented x 4. Limitations: no limitations Course Vital Signs 04/12/24 04/12/24 15:25 18:45 Temperature 98.3 F Pulse Rate 88 82 Respiratory 18 20 Rate Blood Pressure 160/96 164/84 O2 Sat by Pulse 99 97 Oximetry Medical Decision Making - Medical Decision Making Was pt. sent in by a medical professional or institution (, PA, TELEVISION PICTURE TUBE REBUILDER, urgent c are, hospital, or group home...) When possible be specific @ -No Did you speak to anyone other than the patient for history (EMS, parent, family, police, friend...)? What history was obtained from this source @ -No Did you review nursing and triage notes (agree or disagree)? Why? @ -I reviewed and agree with nursing and triage notes Were old charts reviewed (outside hosp., previous admission, EMS record, old EKG, old radiological studies, urgent care reports/EKG's, group home records)? Report findings @ -Compared today's EKG with prior EKGs from December 2023 with no obvious acute changes. Differential Diagnosis (chest pain, altered mental status, abdominal pain women, abdominal pain men, vaginal bleeding, weakness, fever, dyspnea, syncope, headache, dizziness, GI bleed, back pain, seizure, CVA, palpatations, mental health, musculoskeletal)? @ -Differential Palpitations Ventricular arrhythmias, atrial arrhythmias, myocardial infarction, anemia, thyrotoxicosis, electrolyte imbalance, hypokalemia, pulmonary embolism, pulmonary disease, drugs, alcohol, anxiety, stress.... This is not meant to be an all-inclusive list. EKG interpreted by me (3pts min.). @ -As above X-rays interpreted by me (1pt min.). @ -Chest x-ray reveals no obvious acute cardiopulmonary process. CT interpreted by me (1pt min.). @ -None done U/S interpreted by me (1pt. min.). @ -None done What testing was considered but not performed or refused? (CT, X-rays, U/S, labs)? Why? @ -None What meds were considered but not given or refused? Why? @ -None Did you discuss the management of the patient with other professionals (professionals i.e. , PA, TELEVISION PICTURE TUBE REBUILDER, lab, RT, psych nurse, public health social worker, puncher, teacher, grants officer, telephonic nurse case manager)? Give summary @ -No Was smoking cessation discussed for >3mins.? @ -No Was critical care preformed (if so, how long)? @ -No Were there social determinants of health that impacted care today? How? (Homelessness, low income, unemployed, alcoholism, drug addiction, transportation, low edu. Level, literacy, decrease access to med. care, long-term, rehab)? @ -No Was there de-escalation of care discussed even if they declined (Discuss DNR or withdrawal of care, Hospice)? DNR status @ -No What co-morbidities impacted this encounter? (DM, HTN, Smoking, COPD, CAD, Cancer, CVA, ARF, Chemo, Hep., AIDS, mental health diagnosis, sleep apnea, morbid obesity)? @ -Anxiety Was patient admitted / discharged? Hospital course, mention meds given and route, prescriptions, significant lab abnormalities, going to OR and other pertinent info. @ -Patient presents with heart palpitations that seems more like an anxiety or panic episode. EKG shows no signs of acute ischemia. We will obtain general heart labs. Patient will be given a dose of Ativan. She is also given IV fluids. Patient was in agreement this plan. Vital signs are within acceptable limits. EKG shows no signs of acute ischemia. Laboratory studies are all within acceptable limits including undetectable troponin and normal thyroid studies. Viral swabs negative. Chest x-ray unremarkable. On reevaluation, patient is feeling improved. We discussed her workup. I do believe she was likely having anxiety episode and she was in agreement this plan. Heart score is low. She will be discharged home at this time. Vital signs remained within acceptable limits with no respiratory distress. Patient was in agreement this plan. She will be discharged home. We did discuss obtaining possibly a second troponin however patient declines that she is feeling improved and will return if symptoms worsen I believe this is reasonable as her heart score is low. I instructed the patient to follow up with their PCP in the next 1-3 days. I explained that the patient should return to the emergency department if they experience any worsening symptoms. Strict return precautions were discussed with the patient. The patient expressed understanding of these instructions. I answered all questions that the patient had. The patient was discharged home in good condition with their prescriptions and follow up information. Undiagnosed new problem with uncertain prognosis? @ -No Drug Therapy requiring intensive monitoring for toxicity (Heparin, Nitro, Insulin, Cardizem)? @ -No Were any procedures done? @ -No Diagnosis/symptom? @ -Anxiety, heart palpitations Acute, or Chronic, or Acute on Chronic? @ -Acute on chronic Uncomplicated (without systemic symptoms) or Complicated (systemic symptoms)? @ -Uncomplicated Side effects of treatment? @ -No Exacerbation, Progression, or Severe Exacerbation? @ -No Poses a threat to life or bodily function? How? (Chest pain, [place], AL, pneumonia, PE, COPD, DKA, ARF, appy, cholecystitis, CVA, Diverticulitis, Homicidal, Suicidal, threat to staff... and all critical care pts) @ -Unlikely at this time - Lab Data Result diagrams: 04/12/24 16:38 04/12/24 16:38 Lab Results 04/12/24 04/12/24 04/12/24 Range/Units 16:38 16:38 16:38 WBC 11.3 H (3.8-10.6) k/uL RBC 5.06 (3.80-5.40) m/uL Hgb 13.9 (11.4-16.0) gm/dL Hct 43.8 (34.0-46.0) % MCV 86.7 (80.0-100.0) fL MCH 27.6 (25.0-35.0) pg MCHC 31.8 (31.0-37.0) g/dL RDW 14.5 (11.5-15.5) % Plt Count 246 (150-450) k/uL MPV 7.3 Neutrophils % 52 % Lymphocytes % 36 % Monocytes % 5 % Eosinophils % 5 % Basophils % 0 % Neutrophils # 5.8 (1.3-7.7) k/uL Lymphocytes # 4.1 (1.0-4.8) k/uL Monocytes # 0.5 (0-1.0) k/uL Eosinophils # 0.6 (0-0.7) k/uL Basophils # 0.0 (0-0.2) k/uL Sodium 138 (137-145) mmol/L Potassium 3.7 (3.5-5.1) mmol/L Chloride 101 (98-107) mmol/L Carbon Dioxide 25 (22-30) mmol/L Anion Gap 12 mmol/L BUN 11 (7-17) mg/dL Creatinine 1.04 (0.52-1.04) mg/dL Est GFR (CKD-EPI)AfAm 78 (>60 ml/min/1.73 sqM) Est GFR (CKD-EPI)NonAf 68 (>60 ml/min/1.73 sqM) Glucose 105 H (74-99) mg/dL Calcium 9.8 (8.4-10.2) mg/dL Magnesium 2.0 (1.6-2.3) mg/dL Total Bilirubin 0.5 (0.2-1.3) mg/dL AST 34 (14-36) U/L ALT 48 H (4-34) U/L Alkaline Phosphatase 92 (38-126) U/L Troponin I <0.012 (0.000-0.034) ng/mL Total Protein 7.4 (6.3-8.2) g/dL Albumin 4.5 (3.5-5.0) g/dL TSH 0.717 (0.465-4.680) mIU/L Urine Color Urine Appearance (Clear) Urine pH (5.0-8.0) Ur Specific [place] (1.001-1.035) Urine Protein (Negative) Urine Glucose (UA) (Negative) Urine Ketones (Negative) Urine Blood (Negative) Urine Nitrite (Negative) Urine Bilirubin (Negative) Urine Urobilinogen (<2.0) mg/dL Ur Leukocyte Esterase (Negative) Influenza Type A (PCR) (Not Detectd) Influenza Type B (PCR) (Not Detectd) RSV (PCR) (Not Detectd) SARS-CoV-2 (PCR) (Not Detectd) 04/12/24 04/12/24 Range/Units 16:42 16:49 WBC (3.8-10.6) k/uL RBC (3.80-5.40) m/uL Hgb (11.4-16.0) gm/dL Hct (34.0-46.0) % MCV (80.0-100.0) fL MCH (25.0-35.0) pg MCHC (31.0-37.0) g/dL RDW (11.5-15.5) % Plt Count (150-450) k/uL MPV Neutrophils % % Lymphocytes % % Monocytes % % Eosinophils % % Basophils % % Neutrophils # (1.3-7.7) k/uL Lymphocytes # (1.0-4.8) k/uL Monocytes # (0-1.0) k/uL Eosinophils # (0-0.7) k/uL Basophils # (0-0.2) k/uL Sodium (137-145) mmol/L Potassium (3.5-5.1) mmol/L Chloride (98-107) mmol/L Carbon Dioxide (22-30) mmol/L Anion Gap mmol/L BUN (7-17) mg/dL Creatinine (0.52-1.04) mg/dL Est GFR (CKD-EPI)AfAm (>60 ml/min/1.73 sqM) Est GFR (CKD-EPI)NonAf (>60 ml/min/1.73 sqM) Glucose (74-99) mg/dL Calcium (8.4-10.2) mg/dL Magnesium (1.6-2.3) mg/dL Total Bilirubin (0.2-1.3) mg/dL AST (14-36) U/L ALT (4-34) U/L Alkaline Phosphatase (38-126) U/L Troponin I (0.000-0.034) ng/mL Total Protein (6.3-8.2) g/dL Albumin (3.5-5.0) g/dL TSH (0.465-4.680) mIU/L Urine Color Light Yellow Urine Appearance Clear (Clear) Urine pH 6.0 (5.0-8.0) Ur Specific [place] 1.010 (1.001-1.035) Urine Protein Negative (Negative) Urine Glucose (UA) 4+ H (Negative) Urine Ketones Negative (Negative) Urine Blood Negative (Negative) Urine Nitrite Negative (Negative) Urine Bilirubin Negative (Negative) Urine Urobilinogen <2.0 (<2.0) mg/dL Ur Leukocyte Esterase Negative (Negative) Influenza Type A (PCR) Not Detected (Not Detectd) Influenza Type B (PCR) Not Detected (Not Detectd) RSV (PCR) Not Detected (Not Detectd) SARS-CoV-2 (PCR) Not Detected (Not Detectd) - EKG Data -: EKG Interpreted by Me EKG Comments: 12-lead Electrocardiogram Interpretation Note EKG was reviewed and interpreted by myself. 12-lead ECG performed at 1538 is interpreted by me as revealing normal sinus rhythm at a rate of 85 beats per minute. [place] is normal. AL interval is 139 ms, QRS duration is 95 ms, QTc is 407 ms.. There were no ST or T wave abnormalities to suggest myocardial ischemia or injury. R wave progression across the precordium was satisfactory. By my interpretation this EKG is non-diagnostic for acute ischemia. Disposition Clinical Impression: Anxiety, Heart palpitations Disposition: HOME SELF-CARE Condition: Good Instructions (If sedation given, give patient instructions): Heart Palpitations (ED) Additional Instructions: Follow-up with your PCP in the next 1 to 3 days. Return to the emergency department if any worsening symptoms. Is patient prescribed a controlled substance at d/c from ED?: No Referrals: Fabián Reynolds MD [Primary Care Provider] - 1-2 days Time of Disposition: 18:30
[2024-04-12] MEDS: POTASSIUM CHLORIDE ER 10 MEQ TAB.ER.PRT PO STA (18:43)
[2024-04-12 18:46] VITALS: BP 164/84; PULSE 82; RESP 20
== END 2024-04-12 18:47 | disposition home or self-care (01) ==
LOC: EC 15:15
DX: R00.2 Palpitations (principal); F41.9 Anxiety disorder, unspecified; I50.9 Heart failure, unspecified; E11.9 Type 2 diabetes mellitus without complications; I11.0 Hypertensive heart disease with heart failure; E07.9 Disorder of thyroid, unspecified; Z87.891 Personal history of nicotine dependence; Z88.5 Allergy status to narcotic agent; Z88.6 Allergy status to analgesic agent
CPT/HCPCS: 36415; 93005; 80053; 83735; 84443; 84484; 85025; 81003; 87636; 71046; 99285; 96374; 96361; J2060

== ENCOUNTER → 2024-06-03 | Outpatient (CLI) | payer OTHER ==
[2024-06-03 10:32] LABS: Blood Urea Nitrogen 15.2 mg/dL (9.0-27.0); Calcium 9.1 mg/dL (8.7-10.3); Carbon Dioxide 25.2 mmol/L (21.6-31.8); Chloride 102 mmol/L (96-109); Glucose 98 mg/dL (70-110); Potassium 4.4 mmol/L (3.5-5.5); Sodium 136 mmol/L (135-145)
[2024-06-03 10:51] LABS: HGB 14.2 g/dL (12.0-15.0); MCH 27.3 pg (27.0-32.0); MCHC 31.6 g/dL (32.0-37.0); MCV 86.5 FL (80.0-97.0); NRBC Per 100 WBC 0 X 10*3/uL (0.00-0.01); Platelet Count 253 X 10*3/uL (140-440); RDW 16.1 % (11.5-14.5); WBC 8.03 X 10*3/uL (4.50-10.00)
[2024-06-03 11:54] LABS: INR <0.93 sec (0.93-1.11); Prothrombin Time 10.6 sec (9.9-11.9)
== END | disposition home or self-care (01) ==
LOC: LABPAT 07:31
PROVIDERS: ATTEND Orthopaedic Surgery
DX: Z01.812 Encounter for preprocedural laboratory examination (principal); M51.369 Other intervertebral disc degeneration, lumbar region without mention of lumbar back pain or lower extremity pain; Z22.322 Carrier or suspected carrier of Methicillin resistant Staphylococcus aureus
CPT/HCPCS: 80048; 85027; 85610; 86850; 86900; 86901; 87070

== ENCOUNTER 2024-06-13 10:02 | Day surgery (SDC) | payer OTHER ==
[2024-06-07 09:28] VITALS: BMI 41.3
--- NOTE | 2024-06-13 08:44 | P.HPOR ---
History of Present Illness H&P Date: 06/05/24 [facility] Jun 05, 2024 10:00?AM PATIENT: BONNIE FORBES PROVIDER: JOSE A Spine Surgery Clinical and Risk Review BONNIE FORBES is a 39 YO FEMALE presenting for evaluation of LE WEAKNESS, PAIN, LOW BACK PAIN. It was my pleasure to have seen and examined BONNIE FORBES . In our visit today we have had a chance to go over subjective complaints, physical examination findings and treatments including the natural course history without intervention and various interventional options. The patient's imaging demonstrates the following findings: L5-S1 HNP WITH MODERATE STENOSIS. L3-4 ANNULAR TEAR On a physical exam,BONNIE FORBES demonstrates the following findings: LE PAIN, HEAVINESS FEELS LIKE CEMENT LE BRUISING CANNOT WALK FAR DISTANCES. I have explained to the patient that as their condition progresses it will cause further neurological deficits and eventual paralysis. Based on the patients imaging, physical exam, and the rapid progression and disabling nature of their symptoms, at this time I recommend surgery in the form of a: L5-S1 RIGHT LAMINOFORAMINOTOMY . I discussed the risk and benefits of this procedure at length with BONNIE FORBES . The patient has agreed to consider pursuing the procedure above mentioned. Prior to surgery, they should follow up with her PCP (Cardio, ID, IM etc) for clearance. Questions were invited and answered, and the patient wishes to proceed as outlined below. IMPRESSION: L5-S1 PARACENTRAL HNP WITH STENOSIS RLE LUMBAR RADICULOPATHY LOW BACK PAIN Currently, I am recommending: L5-S1 RIGHT LAMINOFORAMINOTOMY Obtain appropriate presurgical workup and clearances as discussed with the patient. Review of surgical risks and benefits as well as an educational packet on the proposed surgical procedure. Risks: All surgical procedures come with inherent risks, including those related to positioning, anesthesia, intraoperative findings, and postoperative complications. It is important to understand that surgery does not come with any guarantee of a successful outcome as complications and adverse events are always possible. The patient was given a handout in the office today discussing the surgical procedure and risks associated with the intervention, both of which were discussed with the patient. These risks include but are not limited to the following: Experiencing same, different or even worse symptoms in back, neck, arms, or legs compared to before surgery. Requiring further surgery or other forms of treatment presently or at some time in the future at same or other levels of the intended spine surgery. On an extreme but fortunately relatively rare basis severe complications such as blindness, stroke, heart attack, temporary and/or permanent nerve injury, paralysis, coma, or may occur, sometimes without known explanation. Surgical complications may include but are not limited to risk of infection, fluid accumulation in the surgical dissection site, including a seroma or hematoma, that requires additional surgery, wound drainage, bleeding, new numbness or weakness, vision changes/loss, spinal fluid leakage, non-healing and/or infected incision, headaches, difficulty or inability to swallow, hoarseness, hemopneumothorax, pneumothorax, impotence, retrograde ejaculation, vaginal dryness; injury to nerves, spinal cord, blood vessels, lymphatics or other vital organs (i.e., bowel injury, injury to the great vessels); heterotopic bone formation; complications related to the hardware such as screws, rods, cages including misplaced hardware, device failure, instrumentation at the wrong spine level, hardware fracture/breakage, or hardware loosening; vertebral failure of the spinal column above or below the newly placed hardware; retained surgical instrumentations or devices and the need for further surgery. Medical risks of the planned spine surgery include but are not limited to generalized Infections to the whole body or local areas outside of the surgical site (sepsis), heart attack, bleeding, anaphylaxis, meningitis, seizure, epilepsy, hearing loss, burn yanes, laceration of the head or other areas of the body, bruising, hypersensitivity of the skin, bladder over distension; allergic reaction; shoulder injury related to positioning; fat, blood and air clots to other areas of the body like heart, lungs, brain; failure of internal organs such as lungs, kidneys, liver and excessive bleeding. If blood transfusions are necessary, note that transfusions may cause intolerance reactions such as anaphylaxis or other complex reactions. Despite best efforts, the results of spine surgery might not heal in terms of bone, soft tissues such as skin, fascia, ligaments, and joints. Additionally, in order to achieve best possible results, spine surgery may be carried out beyond the initially planned levels and involve decompression, fusion including insertion of hardware at levels other than the original intended area of surgical interest change some portions of the procedure in order to ensure the best possible outcomes. With spine surgery and spinal fusion, there are different off label uses of instrumentation (devices, implants and hardware) as well as biological substances (bone morphogenic proteins, demineralized bone matrix) as well as using extra bone from allograft sources (i.e. cadaver bone) or autograft (iliac crest bone, ribs, or the spine itself). The patient has been given information about these practices and their inherent risks and benefits. The patient has had a chance to review all the listed information, has been given print outs detailing this information, and has had all his/her questions answered to their satisfaction. It was my pleasure to have seen and examined BONNIE FORBES . In our visit today we have had a chance to go over my understanding of our patient's current condition, the natural course history without intervention and various interventional options. Questions were invited and answered, and the patient wishes to proceed as outlined above. I have seen and examined the patient for 25 minutes and we have spent more than 50% of the time in repeat and detailed counseling about the patient's condition, its natural course history without and as much as can be predicted with surgery and re-review of various surgical treatment options. In conclusion, BONNIE FORBES and their family requested we proceed with the above suggested surgery and are willing to accept risks and limitations of the suggested surgery as the nature of the disease process and our best attempts at treatment for the condition. In our visit today the patient and I have had a chance to go over my understanding of their current condition, the natural course history without intervention and various interventional options. Questions were invited and answered, and the patient wishes to proceed as outlined above. I will be sure to keep you updated after the patient returns here for further follow-up. Thank you again for your referral. Please do not hesitate to contact me if you have any further questions. Signed and authenticated by: Jun 12, 2024 3:00?PM EDT DO [facility] [address] [address] This document is confidential, intended only for the named recipient(s) and may contain information that is privileged or exempt from disclosure under applicable law. If you are not the intended recipient(s), you are notified that the dissemination, distribution or copying of this information is strictly prohibited. If you received this message in error, please notify the sender then delete this message. Past Medical History Past Medical History: Asthma, Heart Failure, Diabetes Mellitus, GERD/Reflux, Hypertension, Osteoarthritis (OA), Renal Disease, Thyroid Disorder Additional Past Medical History / Comment(s): Stage 2 Chronic Kidney Disease. Bilateral Carpal Tunnel. "Arthritis in back." History of Any Multi-Drug Resistant Organisms: None Reported Past Surgical History: Cholecystectomy, Ear Surgery Additional Past Surgical History / Comment(s): Left ear drum surgery, bunionectomy bilateral feet, tubes in ears, epidural and bilateral SI joint injections through [facility]. Past Anesthesia/Blood Transfusion Reactions: No Reported Reaction Smoking Status: Former smoker, Vaper - Past Family History Mother Family Medical History: Cancer Additional Family Medical History / Comment(s): Leukemia. grandma Additional Family Medical History / Comment(s): CABG X6. Medications and Allergies Home Medications Medication Instructions Recorded Confirmed Type Montelukast [Singulair] 10 mg PO HS 11/28/22 06/07/24 History Omeprazole 40 mg PO DAILY 11/28/22 06/07/24 History traMADol HCL 50 mg PO BID PRN 01/02/23 06/07/24 History Ferrous Sulfate [Iron (65 MG 325 mg PO DAILY 12/27/23 06/07/24 History Elemental)] Ibuprofen [Motrin] 600 mg PO BID PRN 12/27/23 06/07/24 History Levothyroxine Sodium [Synthroid] 125 mcg PO DAILY 12/27/23 06/07/24 History Tamsulosin HCl [Flomax] 0.4 mg PO HS 12/27/23 06/07/24 History Albuterol Inhaler [Ventolin Hfa 2 puff INHALATION RT-Q4H PRN 01/05/24 06/07/24 History Inhaler] Budesonide-Formot 160-4.5 Mcg 2 puff INHALATION RT-BID 01/05/24 06/07/24 History [Symbicort 160-4.5 Mcg Inhaler] Dapagliflozin Propanediol [Farxiga] 5 mg PO DAILY 01/05/24 06/07/24 History Umeclidinium [place] [Incruse 1 puff INHALATION RT-BID 01/05/24 06/07/24 History Ellipta] Gabapentin [Neurontin] 300 mg PO TID PRN 04/12/24 06/07/24 History Ondansetron [Zofran] 4 mg PO DAILY PRN 04/12/24 06/07/24 History Orphenadrine Citrate [Orphenadrine 100 mg PO BID PRN 04/12/24 06/07/24 History Citrate ER] Tirzepatide [Zepbound] 2.5 mg SQ FR 04/12/24 06/07/24 History Cariprazine HCl [Vraylar] 1.5 mg PO HS 06/07/24 06/07/24 History DULoxetine HCL [Cymbalta] 60 mg PO HS 06/07/24 06/07/24 History Hydrocortisone [Cortef] 10 mg PO BID 06/07/24 06/07/24 History LORazepam [Ativan] 1 mg PO BID 06/07/24 06/07/24 History lamoTRIgine [LaMICtal] 25 mg PO BID 06/07/24 06/07/24 History Allergies Allergy/AdvReac Type Severity Reaction Status Date / Time aspirin Allergy Rash/Hives Verified 06/07/24 09:11 codeine Allergy Rash/Hives Verified 06/07/24 09:11 Physical Examination Osteopathic Statement: *. No significant issues noted on an osteopathic structural exam other than those noted in the History and Physical/Consult.
[~2024-06-13 10:02] MED LIST changes: +LIDOCAINE 1% (10MG/ML) FOR IV START INTRADERMA PRN; +fentaNYL (PF) 50 MCG/ML 2 ML AMP IV PRN
[2024-06-13] MEDS: ONDANSETRON 4 MG/2 ML VIAL IVP PRN (11:23)
[2024-06-13] MEDS: ACETAMINOPHEN TAB 500 MG TAB PO PRN (11:24)
[2024-06-13] MEDS: GABAPENTIN 300 MG CAP PO PRN (11:24)
[2024-06-13] MEDS: LACTATED RINGERS 1,000 ML IV SCH (11:25)
[2024-06-13] MEDS: DEXAMETHASONE SOD PHOSPHATE 4 MG/ML 1 ML VIAL IV ONE (11:26)
[2024-06-13 11:55] LABS: Glucose,Whole Blood 71 mg/dL (70-110)
[2024-06-13] MEDS: LACTATED RINGERS 1,000 ML IV ONE (11:55)
[2024-06-13] MEDS: IV FLUID CONTINUATION 1,000 ML IV ONE (11:55)
[2024-06-13] MEDS: MIDAZOLAM 2 MG/2 ML VIAL IV ONE (11:55)
[2024-06-13] MEDS: DEXTROSE 50% SYRINGE 50 ML IVP STA (12:18)
[2024-06-13] MEDS ORDERED: PROPOFOL 10 MG/ML 20 ML VIAL IV ONE (12:18)
[2024-06-13] MEDS ORDERED: TRANEXAMIC 1,000 MG/100ML-NACL PREMIX BAG ONE (12:18)
[2024-06-13] MEDS ORDERED: fentaNYL (PF) 50 MCG/ML 2 ML AMP ONE (12:18)
[2024-06-13] MEDS ORDERED: ROCURONIUM 10 MG/ML (5 ML VIAL) IV ONE (12:18)
[2024-06-13] MEDS ORDERED: HYDROmorphone (PF) 1 MG/ML ONE (12:18)
[2024-06-13] MEDS ORDERED: LIDOCAINE 1% INJ 10MG/ML (20 ML MDV) ONE (12:18)
[2024-06-13] MEDS ORDERED: NEOSTIGMINE 1 MG/ML 10 ML VIAL ONE (12:18)
[2024-06-13] MEDS ORDERED: PHENYLEPHRINE 10 MG/ML VIAL ONE (12:18)
[2024-06-13] MEDS ORDERED: GLYCOPYRROLATE 0.2 MG/ML 2 ML VIAL ONE (12:18)
[2024-06-13] MEDS ORDERED: MIDAZOLAM 2 MG/2 ML VIAL ONE (12:18)
[2024-06-13] MEDS ORDERED: SUCCINYLCHOLINE CHLORIDE 200 MG/10 ML VIAL IV ONE (12:18)
[2024-06-13] MEDS: ceFAZolin 3 GM in SODIUM CHLORIDE 0.9% 100 ML IVPB PRN (12:22)
[2024-06-13] MEDS: THROMBIN (BOVINE) 5,000 UNIT VIAL TOPICAL ONE (13:04)
--- NOTE | 2024-06-13 14:13 | FL ---
EXAMINATION TYPE: FL guidance operating room, XR lumbar spine 2 or 3V DATE OF EXAM: 06/13/2024 CLINICAL INDICATION: Female, 39 years old with history of LUMBAR STENOSIS, pain. TECHNIQUE: Fluoroscopy. Lumbar spine 2 views. COMPARISON: None. FINDINGS: Fluoroscopic guidance was provided during minimally invasive lumbar fusion procedure perfo rmed by Dr. Hobbs. A total of 33.8 seconds of fluoroscopic time was utilized during the procedu re and 2 spot images was acquired. A metallic pointer for surgical planning is localized to the L5-S1 level TOTAL DAP = 13.622 Gycm2. IMPRESSION: As Above. [facility], , 06/13/2024 2:11 PM
[2024-06-13 14:15] LABS: Glucose,Whole Blood 83 mg/dL (70-110)
[2024-06-13 14:18] VITALS: TEMP 97
[2024-06-13] MEDS: HYDROmorphone 0.5 MG/0.5 ML SYRINGE IVP PRN (14:20)
[2024-06-13 15:00] VITALS: RESP 16
[2024-06-13 15:25] VITALS: BP 116/72; PULSE 84
--- NOTE | 2024-06-13 16:16 | P.OP ---
Date of Procedure: 06/13/24 Preoperative Diagnosis: L5-S1 PARACENTRAL HNP WITH STENOSIS RLE LUMBAR RADICULOPATHY LOW BACK PAIN Postoperative Diagnosis: L5-S1 PARACENTRAL HNP WITH STENOSIS RLE LUMBAR RADICULOPATHY LOW BACK PAIN Procedure(s) Performed: 1. L5-S1 LAINOFORAMINOTOMY WITH MICRODISCECOMTY NOTES: MIS RIGHT Implants: NONE Anesthesia: GETA Surgeon: Darnell Hobbs Gender Studies Professor #1: Kilo Lala (WAS PRESENT AND ASSISTED WITH ALL ASPECTS OF THE CASE FROM POSITION TO DRESSING PLACEMENT) Estimated Blood Loss (ml): 25 IV fluids (ml): 1,200 Urine output (ml): 0 Pathology: none sent Condition: stable Disposition: PACU Indications for Procedure: BONNIE FORBES is a 39 YO FEMALE presenting for evaluation of LE WEAKNESS, PAIN, LOW BACK PAIN. It was my pleasure to have seen and examined BONNIE FORBES . In our visit today we have had a chance to go over subjective complaints, physical examination findings and treatments including the natural course history without intervention and various interventional options. The patient's imaging demonstrates the following findings: L5-S1 HNP WITH MODERATE STENOSIS. L3-4 ANNULAR TEAR On a physical exam,BONNIE FORBES demonstrates the following findings: LE PAIN, HEAVINESS FEELS LIKE CEMENT LE BRUISING CANNOT WALK FAR DISTANCES. I have explained to the patient that as their condition progresses it will cause further neurological deficits and eventual paralysis. Based on the patients imaging, physical exam, and the rapid progression and disabling nature of their symptoms, at this time I recommend surgery in the form of a: L5-S1 RIGHT RODRIGUES INOFORAMINOTOMY . I discussed the risk and benefits of this procedure at length with BONNIE FORBES . The patient has agreed to consider pursuing the procedure above mentioned. Prior to surgery, they should follow up with her PCP (Cardio, ID, IM etc) for clearance. Questions were invited and answered, and the patient wishes to proceed as outlined below. IMPRESSION: L5-S1 PARACENTRAL HNP WITH STENOSIS RLE LUMBAR RADICULOPATHY LOW BACK PAIN Currently, I am recommending: L5-S1 RIGHT LAMINOFORAMINOTOMY Description of Procedure: L5-S1 MINIMALLY INVASIVE LAMINOFORAMINOTOMY WITH MICRODISCECOMTY (RIGHT) The patient was seen and examined in the preoperative area. All preoperative protocols were followed. Informed consent was obtained, risks and benefits of the procedure were discussed at length. Risks including bleeding infection damage to the surrounding tissue and risk of reoperation were discussed with the patient. Risk of anesthesia up to and including was discussed with the patient. These are outlined in the risk review. They were willing to accept these risks and all the risks of surgery. The patient was given a weight-based dose of antibiotics in the form of 2 g Ancef. The patient was seen and evaluated by the anesthesia team who deemed them fit for surgery. The site was marked, the patient was willing to proceed with the procedure. The patient was transferred to the operative suite by the Department of anesthesia. They were then drifted off to sleep by the department anesthesia and GETA was performed. The patient tolerated this well. Christopher catheter was placed by nursing staff, a-traumatically. Once confirmation of lines and ventilation the patient was transferred to a prone Abdulkadir table very carefully. All bony prominences including wrists, elbows, axilla, chest, hips, and thighs, and feet were padded very well. Special attention was paid to the genitalia, and these were padded accordingly. SCDs were placed on bilateral lower extremities and were connected. Arms were well padded and placed on arm boards up and out in the 90/90 position. Once in position, again we confirmed good ventilation capabilities and that lines were running appropriately. The patients Lumbar spine was then exposed. 1010s were placed outlining the incision site. Standard alcohol was used to clean the incision site and allowed to dry. C-arm was used to needle localize the pedicles at L5-S1 and bio-bekah the patient and confirm level for incision which was marked with a skin marker. Operative briefing was performed with all teams and everyone in agreement to proceed. The patient was then prepped and draped in a normal sterile fashion. Timeout was then performed, and all parties agreed with the procedure to be performed. Skin incision was made over the previously marked area. Fluoroscopy was then used to target the lamina and facet joints on the RIGHT hand side of L5-S1 and initial dilator for the tubular retractor system was used to identify this area. Once in a good position, sequential dilation was taken up to 26 mm and tube selected. A 80 mm tube was then placed and secured to the table. This was confirmed to be in good position on AP and Lateral imaging. Limited myomectomy was then done to identify the lamina, interlaminar space, and facet joints. Jorge Luis-laminotomy, partial medial facetectomy and foraminotomy were performed at L5-S1 using high speed dago and Kerrison rongeur. The ligamentum flavum was removed with Kerrison and curette. Dura and roots protected. The disc space was identified along with the herniation. There was extrusion of the fragmen caudally and this was removed easily and was an extremely large fragment displ acing the S2 root severely. Then, 11 blade was used to make small annulotomy and micro-pituitary used to remove any loose disc fragments. Once fragments were removed, down biting curette was used to push any medial fragments down and towards the annulotomy and decompress centrally. The disc space was irrigated, and any loose fragments removed again. Bipolar was used for hemostasis and scarring of the annulotomy. The area was irrigated, and meticulous hemostasis performed. The bed was inspected, and all roots have ample room and are decompressed along with the dura. There were no injuries. Retractors were then removed. The wound was copiously irrigated with NSS. 40 mg of methylprednisolone was placed in the wound bed over the S1 root for irritation. The deep fascia was closed with 0 vicryl. Deep sub-q with 0 Vicryl and superficial with 2-0 Vicryl. Skin closed with angella. The wound edges approximated well. The wound was then cleaned, and glue tape placed on the skin and allowed to dry. It was then covered with an Opifoam dressing. The patient was then transferred off the table back to their hospital bed a- traumatically. They were extubated by the department of anesthesia. They were then transferred to PACU in stable condition having tolerated the procedure with no complications. Hillary
== END 2024-06-13 15:51 | disposition home or self-care (01) ==
LOC: OR 10:02
PROVIDERS: ATTEND Orthopaedic Surgery
DX: M51.17 Intervertebral disc disorders with radiculopathy, lumbosacral region (principal); M51.16 Intervertebral disc disorders with radiculopathy, lumbar region; M48.07 Spinal stenosis, lumbosacral region; E11.22 Type 2 diabetes mellitus with diabetic chronic kidney disease; I13.0 Hypertensive heart and chronic kidney disease with heart failure and stage 1 through stage 4 chronic kidney disease, or unspecified chronic kidney disease; I50.9 Heart failure, unspecified; N18.2 Chronic kidney disease, stage 2 (mild); E03.9 Hypothyroidism, unspecified; J45.909 Unspecified asthma, uncomplicated; K21.9 Gastro-esophageal reflux disease without esophagitis; F17.290 Nicotine dependence, other tobacco product, uncomplicated; Z79.890 Hormone replacement therapy; Z79.84 Long term (current) use of oral hypoglycemic drugs; Z79.51 Long term (current) use of inhaled steroids; Z79.899 Other long term (current) drug therapy; Z88.6 Allergy status to analgesic agent; Z88.5 Allergy status to narcotic agent
CPT/HCPCS: 72100; 63030; J2250; J0690; J2405; J1171; 81025

== ENCOUNTER 2024-08-29 18:41 | Emergency (ER) | payer OTHER ==
[2024-08-29 18:48] VITALS: RESP 18
[2024-08-29 20:54] VITALS: BP 156/93; PULSE 102; TEMP 98.2
[2024-08-29] MEDS: LIDOCAINE 4% PATCH TOPICAL ONE (20:55)
[2024-08-29] MEDS: diazePAM 2 MG TAB PO STA (20:55)
--- NOTE | 2024-08-29 22:01 | CT ---
EXAMINATION TYPE: CT lumbar spine wo con, CT pelvis wo con DATE OF EXAM: 08/29/2024 9:36 PM COMPARISON: 06/13/2024. CLINICAL INDICATION: Female, 39 years old with history of fall, hx si surgery bilateral; PHH, PT pres ents after a fall off an unsecured step. Pt complains of coccyx pain. Pt has had sx to the surroundin g area and pt is worried about her SI joint TECHNIQUE: Multiple axial images were obtained from the midportion of T11 through the sacroiliac willie nts. Soft tissue and bone windows in coronal and sagittal planes were obtained and reviewed. 3-D ref ormats of the bones were created on a separate workstation and submitted for review. CT pelvis was also performed. Axial imaging with sagittal coronal reformats. Contrast used: mL of , (None, if empty). Oral contrast used: (None, if empty). CT DLP: 3013.8 combined mGycm, Automated exposure control for dose reduction was used. FINDINGS: Alignment: There are 5 lumbar type vertebral bodies within normal alignment. Bone: Mild degeneration changes to the spine worse at L5-S1 with vacuum disc phenomenon and endplate sclerosis. Mild to moderate facet joint arthropathy. Right pars interarticularis lucency suggestive o f fractures present. Evaluation of the sacrum and coccyx and pelvis demonstrate no obvious displaced fracture. Mild degeneration changes of the hips with minimal osteophytes. Discs: T12-L1: No spinal canal or neural foraminal stenosis is identified. L1-L2: No spinal canal or neural foraminal stenosis is identified. L2-L3: No spinal canal or neural foraminal stenosis is identified. L3-L4: No spinal canal or neural foraminal stenosis is identified. L4-L5: No spinal canal or neural foraminal stenosis is identified. L5-S1: No spinal canal or neural foraminal stenosis is identified. Other: Fat-containing umbilical hernia present. IMPRESSION: 1. No evidence for spinal fracture. 2. Fixation hardware in the left sacroiliac joint intact. 3. Pars interarticularis defect of the right L5 vertebrae suggested. Consider further evaluation wit h MRI. 4. No evidence for significant spinal canal neural foraminal stenosis. 5. The sacrum and coccyx appear intact. [facility], Workstation: [id number], 08/29/2024 9:59 PM
--- NOTE | 2024-08-29 22:25 | ED ---
Fall HPI - General Chief Complaint: Fall Stated Complaint: Fall/Back Injury Time Seen by Provider: 08/29/24 18:45 Source: patient Mode of arrival: ambulatory - History of Present Illness Initial Comments: 39-year-old female presents to the emergency department reporting back pain. Patient fell at home and landed on her sacrum. Patient has had previous SI surgery. She reports to SI screws on the left. Majority of the pain is on the patient's left side radiating into her left buttock. Is concerned about hardware destruction. Patient does take several medications at home for chronic back pain including Flexeril, gabapentin and [place]. She denies any numbness, tingling or weakness into her leg. No saddle anesthesia. No bowel or bladder incontinence. Denies any other injuries to include striking her head. No other alleviating, precipitating roughing factors - Related Data Home Medications Medication Instructions Recorded Confirmed Montelukast [Singulair] 10 mg PO HS 11/28/22 06/13/24 Omeprazole 40 mg PO DAILY 11/28/22 06/13/24 traMADol HCL 50 mg PO BID PRN 01/02/23 06/13/24 Ferrous Sulfate [Iron (65 MG 325 mg PO DAILY 12/27/23 06/13/24 Elemental)] Ibuprofen [Motrin] 600 mg PO BID PRN 12/27/23 06/13/24 Levothyroxine Sodium [Synthroid] 125 mcg PO DAILY 12/27/23 06/13/24 Tamsulosin HCl [Flomax] 0.4 mg PO HS 12/27/23 06/13/24 Albuterol Inhaler [Ventolin Hfa 2 puff INHALATION RT-Q4H PRN 01/05/24 06/13/24 Inhaler] Budesonide-Formot 160-4.5 Mcg 2 puff INHALATION RT-BID 01/05/24 06/13/24 [Symbicort 160-4.5 Mcg Inhaler] Dapagliflozin Propanediol [Farxiga] 5 mg PO DAILY 01/05/24 06/13/24 Umeclidinium [place] [Incruse 1 puff INHALATION RT-BID 01/05/24 06/13/24 Ellipta] Gabapentin [Neurontin] 300 mg PO TID PRN 04/12/24 06/13/24 Ondansetron [Zofran] 4 mg PO DAILY PRN 04/12/24 06/13/24 Orphenadrine Citrate [Orphenadrine 100 mg PO BID PRN 04/12/24 06/13/24 Citrate ER] Tirzepatide [Zepbound] 2.5 mg SQ FR 04/12/24 06/13/24 Cariprazine HCl [Vraylar] 1.5 mg PO HS 06/07/24 06/13/24 DULoxetine HCL [Cymbalta] 60 mg PO HS 06/07/24 06/13/24 Hydrocortisone [Cortef] 10 mg PO BID 06/07/24 06/13/24 LORazepam [Ativan] 1 mg PO BID 06/07/24 06/13/24 lamoTRIgine [LaMICtal] 25 mg PO BID 06/07/24 06/13/24 Previous Rx's Medication Instructions Recorded Cyclobenzaprine [Flexeril] 5 mg PO TID #21 tablet 06/13/24 Gabapentin 300 mg PO TID #30 cap 06/13/24 HYDROcodone/APAP 7.5-325MG [[place] 1 tab PO Q6HR PRN #28 tab 06/13/24 7.5-325] Sennosides/Docusate Sodium [Senna 1 each PO DAILY #20 capsule 06/13/24 Plus 8.6-50 mg Softgel] cefaDROXiL [Duricef] 500 mg PO Q12HR 5 Days #10 cap 06/13/24 Allergies Allergy/AdvReac Type Severity Reaction Status Date / Time aspirin Allergy Rash/Hives Verified 08/29/24 18:43 codeine Allergy Rash/Hives Verified 08/29/24 18:43 Review of Systems ROS Statement: Those systems with pertinent positive or pertinent negative responses have been documented in the HPI. ROS Other: All systems not noted in ROS Statement are negative. Past Medical History Past Medical History: Heart Failure, Diabetes Mellitus, GERD/Reflux, Hypertension, Thyroid Disorder Additional Past Medical History / Comment(s): personality disorder, allergies, low potassium- admitted 12/26-12/29/23- Per pt redrawn at PCP after discharge and potassium was 3.8. History of Any Multi-Drug Resistant Organisms: None Reported Past Surgical History: Back Surgery Additional Past Surgical History / Comment(s): left ear drum, bunionectomy bilateral feet, tubes in ears, epidural and bilateral SI joint injections- seen by pain clinic , SI joint sx , Past Anesthesia/Blood Transfusion Reactions: No Reported Reaction Past Psychological History: Anxiety, Bipolar, Depression, PTSD Smoking Status: Former smoker, Vaper Past Alcohol Use History: None Reported Past Drug Use History: None Reported - Past Family History Mother Family Medical History: Cancer General Exam Limitations: no limitations General appearance: alert, in no apparent distress Head exam: Present: atraumatic, normocephalic, normal inspection Eye exam: Present: normal appearance, PERRL, EOMI. Absent: scleral icterus, conjunctival injection, periorbital swelling ENT exam: Present: normal exam, mucous membranes moist Neck exam: Present: normal inspection. Absent: tenderness, meningismus, lymphadenopathy Respiratory exam: Present: normal lung sounds bilaterally. Absent: respiratory distress, wheezes, rales, rhonchi, stridor Cardiovascular Exam: Present: regular rate, normal rhythm, normal heart sounds. Absent: systolic murmur, diastolic murmur, rubs, gallop, clicks GI/Abdominal exam: Present: soft, normal bowel sounds. Absent: distended, tenderness, guarding, rebound, rigid Extremities exam: Present: normal inspection, full ROM, normal capillary refill, other (Patient has full range of motion of all 4 extremities). Absent: tenderness, pedal edema, joint swelling, calf tenderness Back exam: Present: tenderness (Tenderness to palpation of the left SI joint without visible ecchymosis or deformity) Neurological exam: Present: alert, oriented X3, CN II-XII intact Psychiatric exam: Present: normal affect, normal mood Skin exam: Present: warm, dry, intact, normal color. Absent: rash Course Vital Signs 08/29/24 08/29/24 18:43 20:51 Temperature 98.3 F 98.2 F Pulse Rate 104 H 102 H Respiratory 18 18 Rate Blood Pressure 101/67 156/93 O2 Sat by Pulse 97 98 Oximetry Medical Decision Making - Medical Decision Making Was pt. sent in by a medical professional or institution (, PA, ADVERTISEMENT COMPOSITOR, urgent care, hospital, or jail...) When possible be specific @ -No Did you speak to anyone other than the patient for history (EMS, parent, family, police, friend...)? What history was obtained from this source @ -No Did you review nursing and triage notes (agree or disagree)? Why? @ -I reviewed and agree with nursing and triage notes Were old charts reviewed (outside hosp., previous admission, EMS record, old EKG, old radiological studies, urgent care reports/EKG's, jail records)? Report findings @ -I reviewed operative notes from 06/13/2024 where patient had surgery on her back Differential Diagnosis (chest pain, altered mental status, abdominal pain women, abdominal pain men, vaginal bleeding, weakness, fever, dyspnea, syncope, headache, dizziness, GI bleed, back pain, seizure, CVA, palpatations, mental health, musculoskeletal)? @ -Differential Back Pain: Strain, zoster, cauda equina syndrome, epidural abscess, vertebral osteomyelitis, discitis, fracture, subluxation, disc herniation, DJD, spinal stenosis, dissection, AAA, pancreatitis, peptic ulcer disease, pyelonephritis, kidney stone, this is not meant to be an all-inclusive list. EKG interpreted by me (3pts min.). @ -Not done X-rays interpreted by me (1pt min.). @ -None done CT interpreted by me (1pt min.). @ -Yes which demonstrates intact hardware U/S interpreted by me (1pt. min.). @ -None done What testing was considered but not performed or refused? (CT, X-rays, U/S, labs)? Why? @ -None What meds were considered but not given or refused? Why? @ -None Did you discuss the management of the patient with other professionals (armida to i.e. , PA, ADVERTISEMENT COMPOSITOR, lab, RT, psych nurse, dialysis social worker, housekeeping assistant, teacher, juvenile probation officer, casework supervisor)? Give summary @ -No Was smoking cessation discussed for >3mins.? @ -No Was critical care preformed (if so, how long)? @ -No Were there social determinants of health that impacted care today? How? (Homelessness, low income, unemployed, alcoholism, drug addiction, transportation, low edu. Level, literacy, decrease access to med. care, senior living, rehab)? @ -No Was there de-escalation of care discussed even if they declined (Discuss DNR or withdrawal of care, Hospice)? DNR status @ -No What co-morbidities impacted this encounter? (DM, HTN, Smoking, COPD, CAD, Cancer, CVA, ARF, Chemo, Hep., AIDS, mental health diagnosis, sleep apnea, morbid obesity)? @ -Chronic back pain Was patient admitted / discharged? Hospital course, mention meds given and route, prescriptions, significant lab abnormalities, going to OR and other pertinent info. @ -Upon arrival patient seen and evaluated in bed 23. Thorough history and physical exam was performed. I did apply a lidocaine patch. Patient was given a dose of Valium. CT is performed which demonstrates intact hardware. This is discussed with the patient. She is ambulatory. Patient be discharged home at this time. She will continue her home medications. Follow-up with her surgeon and return for any new or worsening symptoms Undiagnosed new problem with uncertain prognosis? @ -No Drug Therapy requiring intensive monitoring for toxicity (Heparin, Nitro, Insulin, Cardizem)? @ -No Were any procedures done? @ -No Diagnosis/symptom? @ -Acute fall, acute left SI pain, history of chronic back pain Acute, or Chronic, or Acute on Chronic? @ -Acute on chronic Uncomplicated (without systemic symptoms) or Complicated (systemic symptoms)? @ -Complicated Side effects of treatment? @ -No Exacerbation, Progression, or Severe Exacerbation? @ -No Poses a threat to life or bodily function? How? (Chest pain, [place], [place], pneumonia, PE, COPD, DKA, ARF, appy, cholecystitis, CVA, Diverticulitis, Homicidal, Suicidal, threat to staff... and all critical care pts) @ -No Disposition Clinical Impression: Fall, Sacral pain Disposition: HOME SELF-CARE Condition: Stable Instructions (If sedation given, give patient instructions): Back Pain (ED) Additional Instructions: Please follow-up with Dr. Hobbs and pursue the MRI if your symptoms persist. Return for any new or worsening symptoms Is patient prescribed a controlled substance at d/c from ED?: No Referrals: Fabián Reynolds MD [Primary Care Provider] - 1-2 days Time of Disposition: 22:24
== END 2024-08-29 23:10 | disposition home or self-care (01) ==
LOC: EC 18:41
DX: G89.29 Other chronic pain (principal); M53.3 Sacrococcygeal disorders, not elsewhere classified; F17.290 Nicotine dependence, other tobacco product, uncomplicated; Z88.5 Allergy status to narcotic agent; Z88.6 Allergy status to analgesic agent
CPT/HCPCS: 72131; 72192; 99284

== ENCOUNTER → 2024-09-21 | Outpatient (CLI) | payer OTHER ==
--- NOTE | 2024-09-22 13:16 | MR ---
EXAMINATION TYPE: MR lumbar spine wo/w con DATE OF EXAM: 09/21/2024 9:05 AM COMPARISON: 09/04/2024. CLINICAL INDICATION: Female, 39 years old with history of M62.81, M54.50, M51.26; PHH, low back pain that radiates down both legs, fall off porch, history of laminectomy 01-15-24 and 06-13-24 TECHNIQUE: Multi planar, multi sequence imaging was performed utilizing: T1-weighted, T2-weighted, a nd turbo inversion recovery imaging of the lumbar spine. IV Contrast: 13 mL Gadobutrol (None, if empty) FINDINGS: Alignment: The lumbar vertebral bodies have preserved heights and alignment. Cord: The conus medullaris and the distal spinal cord appear unremarkable with regards to their signa l intensity and morphology. Bones/Discs: Postsurgical changes of laminectomy which is new from prior exam at L5-S1. Minimal degen eration changes throughout the spine with osteophyte formation and facet joint arthropathy. disc jony ccation is present at L5-S1. No abnormal inversion recovery signal to suggest bony edema. Fixation small rdware at the left sacroiliac joint noted with susceptibility artifact. There is a surgical bed fluid collection measuring up to 12 mm x 10 mm series 801 image 13 mild inflammation changes around the ri [facility] surgical bed at this area. T12-L1: No evidence of significant spinal canal stenosis or neural foraminal stenosis. L1-L2: No evidence of significant spinal canal stenosis or neural foraminal stenosis. L2-L3: No evidence of significant spinal canal stenosis or neural foraminal stenosis. L3-L4: No evidence of significant spinal canal stenosis or neural foraminal stenosis. L4-L5: No evidence of significant spinal canal stenosis or neural foraminal stenosis. L5-S1: The disc has a rounded posterior morphology without significant spinal canal stenosis. Facet j oint arthropathy with moderate to severe right and moderate left neural foraminal stenosis. a postcon trast enhancement does closely approximate the exiting right L5-S1 nerve. No significant spinal canal or neural foraminal stenosis in the remainder of the visualized levels. Other findings: None. IMPRESSION: 1. No definitive evidence of disc herniation or significant spinal canal stenosis. No abnormal postc ontrast enhancement. 2. Multilevel disc degeneration with associated osteoarthritic changes. No foraminal stenosis worse at L5-S1 with moderate to severe right and moderate left. 3. Post surgical changes at L5 right posterior elements with small fluid collection remaining possib ly postop seroma. Enhancement does closely approximate the exiting right L5-S1 nerve. [facility], , 09/22/2024 1:13 PM
== END | disposition home or self-care (01) ==
LOC: RADMRIMAIN 09-17 12:59
PROVIDERS: ATTEND Orthopaedic Surgery
DX: M51.26 Other intervertebral disc displacement, lumbar region (principal); M51.360 Other intervertebral disc degeneration, lumbar region with discogenic back pain only; Z98.890 Other specified postprocedural states
CPT/HCPCS: 72158; A9585

== ENCOUNTER → 2024-10-10 | Outpatient (CLI) | payer OTHER ==
--- NOTE | 2024-10-10 16:34 | MR ---
EXAMINATION TYPE: MR cervical spine wo con DATE OF EXAM: 10/10/2024 1:44 PM COMPARISON: None. CLINICAL INDICATION: Female, 39 years old with history of M48.02 CERVICAL SPINE PAIN M54.2 CERVICALGI A, Pain into arms, finger numbness x 1month, fall injury TECHNIQUE: Multiplanar, multisequence images of the cervical spine were acquired without contrast. FINDINGS: There is a reversal of the normal cervical lordosis with preserved alignment. Mild multilevel degenerative disc disease characterized by disc desiccation. Minimal posterior disc b ulging C4-C7 levels. Tiny posterior annular fissure at C4-C5 and C6-C7. The reversal of the normal curvature and posterior disc bulging contributes to mild spinal canal sten osis at both C4-C5 and C5-C6 with abutment of the ventral cord but no cord compression or myelopathic signal change. Some increased cord signal at the C6-C7 level on sagittal STIR is not confirmed on sagittal or axial T2 images suggesting artifact. No suspicious bone marrow replacement. Scattered mild facet and uncovertebral joint arthropathy is present. No significant neuroforaminal stenosis seen. IMPRESSION: 1. Reversal of the normal cervical lordosis with mild multilevel degenerative disc disease and mild p osterior disc bulges at C4 through C7 levels. Tiny posterior annular fissure at C4-C5 and C6-C7. 2. Changes results in overall mild spinal canal stenoses at C4-C5 and C5-C6 with abutment of the vent ral cord but no cord compression. 3. There is some bright signal within the right hemicord opposite C6-C7 which is not confirmed on sag ittal or axial T2 images suggesting artifact. Further clinical correlation recommended for any myelop athic symptoms. 4. Scattered mild facet and uncovertebral joint arthropathy. No significant neuroforaminal stenosis i s seen. [facility], Workstation: [id number], 10/10/2024 4:32 PM
== END | disposition home or self-care (01) ==
LOC: RADMRIMAIN 13:01
PROVIDERS: ATTEND Orthopaedic Surgery
DX: M48.02 Spinal stenosis, cervical region (principal); M50.323 Other cervical disc degeneration at C6-C7 level; M47.812 Spondylosis without myelopathy or radiculopathy, cervical region; W19.XXXA Unspecified fall, initial encounter
CPT/HCPCS: 72141

== ENCOUNTER → 2024-10-18 | Outpatient (CLI) | payer OTHER ==
--- NOTE | 2024-10-18 08:49 | XR ---
EXAMINATION TYPE: XR chest 2V DATE OF EXAM: 10/18/2024 COMPARISON: 04/12/2024 CLINICAL INDICATION: Female, 39 years old with history of M48.07 SPINAL STENOSIS LUBOSACRAL; , TECHNIQUE: XR chest 2V views of the chest. FINDINGS: The lungs are clear and there is no pneumothorax, pleural effusion, or focal pneumonia. Heart size normal and no overt failure. Osseous structures demonstrate hypertrophic and degenerative changes of the spine with scoliosis. IMPRESSION: 1. No acute process. [facility], , 10/18/2024 8:47 AM
[2024-10-18 11:08] LABS: Basophils # (A) 0.06 X 10*3/uL (0.00-0.10); Basophils % (A) 0.6 %; Eosinophils # (A) 0.34 X 10*3/uL (0.04-0.35); Eosinophils % (A) 3.4 %; HCT 43.6 % (37.2-46.3); HGB 13.4 g/dL (12.0-15.0); Immature Grans, Automated 0.20 %; Lymphocytes # (A) 3.68 X 10*3/uL (0.90-5.00); Lymphocytes % (A) 37.3 %; MCH 27.0 pg (27.0-32.0); MCHC 30.7 g/dL (32.0-37.0); MCV 87.9 FL (80.0-97.0); Monocytes # (A) 0.58 X 10*3/uL (0.20-1.00); Monocytes % (A) 5.9 %; NRBC Per 100 WBC 0 X 10*3/uL (0.00-0.01); Neutrophils # (A) 5.19 X 10*3/uL (1.80-7.70); Neutrophils % (A) 52.6 %; Platelet Count 268 X 10*3/uL (140-440); RBC 4.96 X 10*6/uL (4.10-5.20); RDW 14.6 % (11.5-14.5); WBC 9.87 X 10*3/uL (4.50-10.00)
[2024-10-18 11:37] LABS: Anion Gap 10.50 mmol/L (4.00-12.00); BUN/Creat Ratio 17.73 Ratio (12.00-20.00); Blood Urea Nitrogen 19.5 mg/dL (9.0-27.0); Calcium 9.3 mg/dL (8.7-10.3); Carbon Dioxide 26.5 mmol/L (21.6-31.8); Chloride 102 mmol/L (96-109); Glucose 106 mg/dL (70-110); Potassium 4.3 mmol/L (3.5-5.5); Sodium 139 mmol/L (135-145)
[2024-10-18 12:09] LABS: INR <0.93 sec (0.93-1.11); Prothrombin Time 10.3 sec (9.9-11.9)
== END | disposition home or self-care (01) ==
LOC: LABPAT 08:04
PROVIDERS: ATTEND Orthopaedic Surgery
DX: M48.07 Spinal stenosis, lumbosacral region (principal)
CPT/HCPCS: 71046; 80048; 82306; 85025; 85610; 86850; 86900; 86901; 87070; 93005